=== PATIENT | female | born 1955 | race Caucasian/White ===

== ENCOUNTER → 2017-10-25 08:00 | Outpatient (CLI) | payer OTHER, SELFPAY ==
[2017-10-25 12:40] LABS: Free T3 1.8 pg/mL (2.18-3.98); T4 Free Direct 1.36 ng/dL (0.76-1.46)
== END ==
PROVIDERS: Family Provider Family Medicine; PCP Family Medicine; Visit Provider Family Medicine
DX: E03.9 Hypothyroidism, unspecified (principal); R53.83 Other fatigue
CPT/HCPCS: 36415; 82533; 84439; 84443; 84481

== ENCOUNTER 2017-10-27 11:51 | Observation (INO) | payer OTHER, SELFPAY ==
[2017-10-27] VITALS (12 sets, daily range): BP systolic 115–149; BP diastolic 75–93; PULSE 82–141; RESP 18–21; TEMP 36.6–37.1; O2SAT 95–100; BMI 24.1; BMI 24.2; BMI 23.7
[2017-10-27] MEDS: 0.9% Normal Saline 1,000 ML 1000 ML IV (12:59)
--- NOTE | 2017-10-27 13:01 | RAD_ITS ---
STUDY: X-RAY CHEST REASON FOR EXAM: Female, 62 years old. 2 day history of persistent cough. TECHNIQUE: PA and lateral views of the chest. COMPARISON: None. FINDINGS: EKG electrodes are seen. Mild degree of increased linear markings at the lung bases. This is suggestive of linear atelectasis and/or scarring. There is no demonstrated pleural abnormality. Normal size heart. Normal mediastinum and cristina. Normal visualized pulmonary arteries. There is atherosclerotic tortuosity of the aortic arch and descending thoracic aorta. There are diffuse degenerative changes of the visualized thoracic spine. There is degenerative osteoarthritis of the bilateral shoulders. There is no demonstrated abnormality of the visualized soft tissue structures of the upper abdomen. RAD/Chest PA and Lateral IMPRESSION: Mild increased markings at the lung bases suggestive of linear atelectasis and/or scarring. Electronically Signed: Jaylan Stovall MD at 13:29 EDT Tel [phone], Service support ,
[2017-10-27 13:16] LABS: Absolute Lymphocyte Count 0.97 X10^3/ul (0.83-4.51); Absolute Neutrophil Count 11.5 X10^3/uL (2.0-7.7); Basophil# 0.05 X10^3/uL; Basophil% 0.4 % (0-1); Eosinophil# 0.12 X10^3/uL; Eosinophils% 0.9 % (0-5); Hematocrit 43.4 % (37-47); Hemoglobin 14.2 g/dl (12.0-15.0); Lymphocyte # 0.97 X10^3/ul (4.0); Lymphocyte % 7.1 % (19-41); Mean Corp Hgb Conc 32.7 g/gl (32-36); Mean Corpuscular Hgb 30.3 pg (27.0-32.0); Mean Corpuscular Volume 92.7 fL (81-99); Mean Platelet Vol. 8.8 fl (6.2-12.0); Monocyte# 0.99 X10^3/uL; Monocyte% 7.2 % (0-10); Neutrophil # 11.53 X10^3/uL (2.7-7.7); Neutrophil % 84.1 % (47-70); POSITIVE COUNT NO; POSITIVE DIFFERENTIAL NO; POSITIVE MORPHOLOGY NO; Platelet Count 443 K/mm3 (150-450); RBC Distribution Width CV 13.3 % (11.6-14.6); RBC Distribution Width SD 44.8 fl (35.1-43.9); Red Blood Count 4.68 M/mm3 (4.2-5.4); White Blood Count 13.7 K/mm3 (4.4-11.0)
[2017-10-27 13:30] LABS: ALB/GLOB Ratio 0.6 RATIO (0.9-2.4); AST(SGOT) 21 U/L (15-37); Alanine Aminotransfer ALT/SGPT 50 U/L (13-56); Albumin, Serum 2.9 g/dL (3.2-5.0); Alkaline Phosphatase 94 U/L (45-117); Anion Gap 6 (5-15); BUN 10 mg/dL (7-18); BUN/Creat Ratio 13.8 RATIO (10-20); Calcium,Total 8.9 mg/dL (8.5-10.1); Chloride 104 mmol/L (98-107); Creatinine, Serum 0.72 mg/dL (0.55-1.02); EST Glomerular Filtration Rate 87 mL/min (>60); Est Glom Filt Rate - Afr Amer 105 mL/min (>60); Globulin 4.9 g/dL (2.2-4.2); Glucose 98 mg/dL (74-106); Potassium 3.4 mmol/L (3.5-5.1); Protein, Total 7.8 g/dL (6.4-8.2); Sodium Level 141 mmol/L (136-145)
[2017-10-27 13:44] LABS: BNP,B-Type NATRIURETIC PEPTIDE 330.1 pg/mL (0-100)
--- NOTE | 2017-10-27 13:55 | EKG12_ITS ---
Test Reason : GENERAL ILLNESS Blood Pressure : / mmHG Vent. Rate : 082 BPM Atrial Rate : 082 BPM P-R Int : 132 ms QRS Dur : 078 ms QT Int : 406 ms P-R-T Axes : 058 -25 046 degrees QTc Int : 474 ms Normal sinus rhythm Normal ECG Confirmed by ANA LAURA HUBER MD ([id number]), editorial director GRECIA BARRAZA ([id number] on 10/29/2017 2:13:29 PM Referred By: DAYANA Confirmed By:ANA LAURA HUBER MD
--- NOTE | 2017-10-27 13:59 | ED.DCSUM_ITS ---
- ER Visit Summary Date of Service: 10/27/17 Chief Complaint: Body aches and difficulty hearing History of Present Illness: The patient is a 62 F with history of GERD and osteoarthritis who presents for multiple complaints, with main one being difficulty hearing and body aches. Patient has had symptoms developing over the last 3 months. She has been seen by her family doctor and had a thyroid and adrenal workup. Today she is having worsening jaw pain, shortness of breath with exertion, her skin is sore , her body hurts. Symptoms started with a sore throat and sinus congestion that developed into a cough. Patient is currently on amoxicillin for 5 days. Physical Examination: Vital signs: afebrile, hemodynamically stable, tachycardic at 118, no hypoxia on room air General: well nourished, well developed, in no distress Skin: warm, dry, no rash, no pallor HEENT: normocephalic and atraumatic; PERRL, EOMI, moist mucous membranes Cardiovascular: regular rate and rhythm without murmurs, no peripheral edema, 2 + pulses all distal extremities Respiratory: No increased work of breathing, lungs are clear to auscultation bilaterally, no rales, rhonchi or wheezing Abdominal: Abdomen is soft, nontender with normoactive bowel sounds, no guarding or rebound, no masses MSK: Moves all extremities, no deformities, normal strength Neuro: Awake and alert, oriented ?4. No facial droop, sensation and motor function intact and symmetric Test Results: Abnormal Lab Results 10/27/17 10/27/17 10/27/17 13:00 13:00 13:00 WBC 13.7 H RBC 4.68 Hgb 14.2 Hct 43.4 MCV 92.7 MCH 30.3 MCHC 32.7 RDW 13.3 RDW Differential 44.8 H Plt Count 443 MPV 8.8 Immature Gran % (Auto) 0.300 Neut % (Auto) 84.1 H Lymph % (Auto) 7.1 L [place] % (Auto) 7.2 Eos % (Auto) 0.9 Baso % (Auto) 0.4 Absolute Neuts (auto) 11.5 H Absolute Lymphs (auto) 0.97 Total Counted Not Reportable Sodium 141 Potassium 3.4 L Chloride 104 Carbon Dioxide 31.0 Anion Gap 6 BUN 10 Creatinine 0.72 Estim Creat Clear Calc 72.90 Est GFR (MDRD) Af Amer 105 Est GFR (MDRD) Non-Af 87 BUN/Creatinine Ratio 13.8 Glucose 98 Calcium 8.9 Total Bilirubin 0.40 AST 21 ALT 50 Alkaline Phosphatase 94 Troponin I 0.105 H B-Natriuretic Peptide 330.1 H Total Protein 7.8 Albumin 2.9 L Globulin 4.9 H Albumin/Globulin Ratio 0.6 L Clinical Impression(s) from Imaging Studies Chest X-Ray 10/27/17 13:01 IMPRESSION: Mild increased markings at the lung bases suggestive of linear atelectasis and/or scarring. Electronically Signed: Jaylan Stovall MD at 13:29 EDT Tel [phone], Service support , Emergency Department Course and Treatment: Patient presents with multiple complaints that have developed over the last few months. However her current complaint of shortness of breath with dyspnea on exertion is concerning. Patient is mildly tachycardic, but does state she is on Sudafed currently. EKG was performed that showed sinus rhythm without ischemic changes or ectopy. Influenza negative. CBC remarkable for leukocytosis of 13.7. BMP unremarkable. Normal hepatic function. Troponin elevated at 0.1. BNP elevated at 330 but no rales or rhonchi noted on lung exam, and chest x-ray showed no interstitial edema. Because patient is having dyspnea on exertion and an elevated troponin, this is concerning for possible etiology. Lasix was not given in the emergency department given no overt signs of volume overload. Patient was discussed with Dr. Carter for admission as observation status for further workup of her elevated troponin and dyspnea on exertion. Treatment Plan: [] Disposition: [] Impression: Elevated Troponin, dyspnea on exertion This note was generated with MEDArch[employer] software. It may contain incorrect words, spelling, and punctuation that were not noted in review of the chart prior to signing ED Disposition - Plan for ED Patient: Disposition: Acute Care Hospital [facility] Chief Complaint: General Illness
--- NOTE | 2017-10-27 17:01 | CT_ITS ---
STUDY: CT MAXILLOFACIAL SINUSES REASON FOR EXAM: Female, 62 years old. Frontal headache RADIATION DOSAGE (If Supplied By Facility): CTDIvol = ( 18.53 ) mGy, DLP = ( 873.38 ) mGycm TECHNIQUE: The patient was scanned in a multi detector CT scanner. High resolution axial imaging was performed without the administration of intravenous contrast material. Sagittal and coronal images were reconstructed. Individualized dose optimization techniques were used for this CT. COMPARISON: None. FINDINGS: FRONTAL SINUSES: Normal aeration, without mucosal inflammatory disease. ETHMOIDAL SINUSES: Normal aeration, without mucosal inflammatory disease. MAXILLARY SINUSES: Normal aeration, without mucosal inflammatory disease. SPHENOIDAL SINUSES: Normal aeration, without mucosal inflammatory disease. There is patency of the bilateral maxillary infundibuli with normal uncinate processes, ethmoid bullae, and hiatus semilunaris. Normal bilateral middle turbinates. Normal bilateral inferior turbinates. Normal midline nasal septum. There is patency of the bilateral nasal airways. The visualized osseous structures are normal. The visualized bilateral orbital contents are normal. There is a small right mastoid effusion. The left mastoid air cells are clear. CT/Sinus/Facial Bone IMPRESSION: Clear sinuses. Small right mastoid effusion. Electronically Signed: Florin Leiva, at 18:31 EDT Tel , Service support ,
--- NOTE | 2017-10-27 17:01 | CT_ITS ---
STUDY: CT CHEST WITHOUT CONTRAST REASON FOR EXAM: Female, 62 years old. Cough RADIATION DOSAGE (If Supplied By Facility): CTDIvol = ( 18.53 ) mGy, DLP = ( 873.38 ) mGycm TECHNIQUE: Transaxial imaging was performed without the administration of intravenous contrast material. Coronal and sagittal reformatted images were created. Individualized dose optimization techniques were used for this CT. COMPARISON: 04/12/2017 FINDINGS: Again noted is atelectasis at the lung bases. There are no pulmonary infiltrates or pleural effusions. There are no pulmonary nodules or masses. There is no pneumothorax. The heart and pericardium are within normal limits. 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 There is no thoracic lymphadenopathy. There is no evidence of thoracic aortic aneurysm. Images through the upper abdomen demonstrate no significant abnormality. There are no destructive osseous lesions. There are stable bilateral soft tissue nodules in the breasts. CT/Chest without Contrast IMPRESSION: Bibasilar atelectasis. Otherwise, clear lungs. Redemonstration of soft tissue nodules in both breasts. Comparison with the patient's most recent mammogram is recommended. Electronically Signed: Florin Leiva, at 18:59 EDT Tel , Service support ,
--- NOTE | 2017-10-27 18:05 | PCM.CONS.C ---
Reason for Consult Date of Consultation: 10/27/17 Reason for Consultation: Abnormal cardiac enzymes and shortness of breath. History of Present Illness: The patient is a 62 year old F with previous cardiac history of minimal coronary artery disease who presented to the emergency room today with multiple complaints mainly related to her neck face jaw and sinuses. She says that she has been having these problems of aches in her jaws as well as in her ears for many months. She has been to her primary physician on multiple occasions but it does not appear that he was getting to the bottom of what was going on. She therefore decided to present to the emergency room for evaluation. She has had some shortness of breath with exertion but no chest pain or chest tightness no neck arm discomfort suggest angina. In the emergency room she was evaluated and was noted to have a mildly elevated natriuretic peptide level and was admitted to the hospitalist service and were consulted for further evaluation and management. She was said to be tachycardic in the emergency room but has no EKG evidence of the above. She apparently has a remote history of cardiac catheterization with no significant stenosis and medical therapy was recommended. [] Past Medical History Allergies/Adverse Reactions: Allergies etodolac Allergy (Verified 10/27/17 11:56) Unknown hydroxychloroquine [From Plaquenil] Allergy (Verified 10/27/17 15:43) Rash Sulfa (Sulfonamide Antibiotics) Allergy (Verified 10/27/17 11:56) Hives tramadol Allergy (Verified 10/27/17 11:56) Unknown lisinopril Adverse Reaction (Verified 10/27/17 15:43) dizziness metoprolol Adverse Reaction (Verified 10/27/17 11:56) Other Proton Pump Inhibitors Adverse Reaction (Verified 10/27/17 11:56) Other Yjflvrd-Anz-Pox Reductase Inhibitor Adverse Reaction (Verified 10/27/17 15:43) dizziness verapamil Adverse Reaction (Verified 10/27/17 11:56) Other Home Medications: Ambulatory Orders Medication Instructions Recorded Amlodipine [Norvasc] 2.5 mg PO QHS 10/27/17 Amoxicillin/Potassium Clav 1 tab PO BID 10/27/17 [Amox-Clav 875-125 mg Tablet] Ascorbic Acid [Vitamin C] 500 mg PO DAILY@0800 10/27/17 Aspirin 81 mg PO QHS 10/27/17 Cholecalciferol (Vitamin D3) 2,000 unit PO DAILY 10/27/17 [Vitamin D3] Dexlansoprazole [Dexilant] 60 mg PO DAILY 10/27/17 Levothyroxine Sodium [Synthroid] 62.5 tab PO DAILY 10/27/17 Loratadine [Claritin] 10 mg PO DAILY 10/27/17 [place]-3 Fatty Acids/Fish Oil 1,200 mg PO DAILY 10/27/17 [[place] 3 1,000 mg Softgel] Pseudoephedrine [Sudafed] 60 mg PO Q6H PRN PRN 10/27/17 Surgical History: no surgical history Smoking Status: Never smoker Alcohol: None Drugs: None Review of Systems - Review of Systems General: Denies: Fever, Night Sweats, Fatigue HEENT: Reports: Ear Pain, Sinus Drainage, Sinus Congestion Cardiovascular: Reports: Shortness of Breath with Exertion. Denies: Chest Discomfort, Shortness of Breath, Orthopnea, PND, Peripheral Edema, Palpitations, Lightheadedness, Dizziness, Near Syncope, Syncope Respiratory: Denies: Cough, Sputum Production, Hemoptysis Gastrointestinal: Denies: Hematemesis, Hematochezia, Melena Genitourinary: Denies: Dysuria, Hematuria Skin: Denies: Rash Subjectve: Pleasant lady in no apparent distress Objective: Vital Signs Temp Pulse Resp BP Pulse Ox 98.7 F 87 21 H 133/80 H 96 10/27/17 11:51 10/27/17 16:00 10/27/17 16:00 10/27/17 16:00 10/27/17 16:00 General: Awake, Alert, Oriented x 3 HEENT: PERRL, EOMI, Sclera Non Icteric Neck: Supple, Good ROM, No Lymph Node Enlargement Lungs: Clear to auscultation Cardiovascular: Regular Rhythm, Normal S1, Normal S2, No Murmurs, No Rubs, No Gallops Vascular: No Carotid Bruits, Normal Femoral Pulses, Normal Radial Pulses, Normal Dorsalis Pedal Pulse, Normal Posterior Tibial Pulses Abdomen: Bowel Sounds Present, Soft, Non Tender, No HSM, No Organomegaly Extremities: No Cyanosis, No Clubbing, No edema Neurological: No Focal Motor or Sensory Deficit Rhythm: EKG: Normal sinus rhythm with no acute changes Assessment/Plan 1. Mild shortness of breath. The etiology of the above is not entirely clear to me at this time it appears that diastolic dysfunction may be the culprit here and her presentation. The exact etiology of that her valve is not clear to me. She will need an echocardiogram to assess her left ventricular function and depending on the results further recommendations will be made. Her blood pressure does not appear to be particularly elevated and may not necessarily be contributing to the above. It also does not appear that this is an ischemic equivalent. 2. Abnormal cardiac enzymes Patient appears to have minimally abnormal cardiac enzymes. We will continue enzymes series before making a determination as to further workup. Thank you for allowing me to participate in the care of your patient. Please don't hesitate to call if any issues arise
[2017-10-27] MEDS: Acetaminophen 325 MG Tablet 650 MG PO (18:17)
[2017-10-27] MEDS: Ibuprofen 400 MG Tablet PO (18:17)
[2017-10-27] MEDS: Furosemide 40 MG/4 ML Vial IV (18:41)
--- NOTE | 2017-10-27 19:15 | PCM.HP.STD ---
Problem List (1) Abnormal troponin Status: Acute (2) Cardiac arrhythmia Status: Acute Qualifiers: Arrhythmia type: supraventricular tachycardia Qualified Code(s): I47.1 - Supraventricular tachycardia History of Present Illness Date of Admission: 10/27/17 Chief Complaint: Abnormal troponin, cardiac arrhythmias (transient supraventricular tachycardia) The patient is a 62 year old F was seen in the emergency room at [facility] with a chief complaint of generalized body aches and complaints of dyspnea on exertion. Patient states her body aches started today, she states she has been short of breath on exertion for the past several days. Patient was recently seen by ENT and a CT of her sinuses was ordered due to her complaints of fullness over her face and decreased hearing. She states the decreased hearing is more apparent in her right ear, she is also complained of jaw pain. Although she did not admit this to the emergency room physician today, patient stated that she had a 10-15 minute episode of dull achy precordial chest pain while in the emergency room which resolved on its own. There was no radiation of this chest discomfort anywhere. Patient's pulse ox on room air was 97%, on ambulation, her pulse ox was 95. Patient's chest x-ray showed bilateral lower lung infiltrates suggestive of either scarring or atelectasis. Patient's labs were abnormal for troponin of 0.105, potassium was 3.4, white blood cell count was 13.7. EKG showed normal sinus rhythm without evidence of ischemic changes. On examination, patient's heart rate and rhythm was regular without murmurs, auscultation the lungs reveals fine inspiratory rales at the bases bilaterally, no lower extremity edema was noted, patient was alert and oriented ?3 and appropriate. Patient's abdomen was soft and nontender. On interviewing the patient, he stated that she has had a cardiac catheterization performed in 2007 due to complaints of chest pain, she was told at the time of this catheterization that she had a blockage in 1 of her arteries but it was too far down to place a stent. The physician had wanted her to take a statin but she refused. During the time of my examination, I looked up at the patient's monitor and she briefly went into a supraventricular tachycardia at 150 for just a few seconds. Patient stated that she felt a fluttering in her chest at that time. Patient will be placed in observation status on PCU, cardiac enzymes will be cycled, she will have an echocardiogram performed, she will be seen in consultation by cardiology. Labs will be rechecked tomorrow. I have decided to order her sinus CT which was ordered as an outpatient and it was to be performed tomorrow anyway. In addition, due to her abnormal chest x-ray, I decided to do a noncontrasted chest CT. Past Medical History Allergies etodolac Allergy (Verified 10/27/17 11:56) Unknown hydroxychloroquine [From Plaquenil] Allergy (Verified 10/27/17 15:43) Rash Sulfa (Sulfonamide Antibiotics) Allergy (Verified 10/27/17 11:56) Hives tramadol Allergy (Verified 10/27/17 11:56) Unknown lisinopril Adverse Reaction (Verified 10/27/17 15:43) dizziness metoprolol Adverse Reaction (Verified 10/27/17 11:56) Other Proton Pump Inhibitors Adverse Reaction (Verified 10/27/17 11:56) Other Xsnqway-Mau-Kyb Reductase Inhibitor Adverse Reaction (Verified 10/27/17 15:43) dizziness verapamil Adverse Reaction (Verified 10/27/17 11:56) Other Home Medications: Ambulatory Orders Medication Instructions Recorded Amlodipine [Norvasc] 2.5 mg PO QHS 10/27/17 Amoxicillin/Potassium Clav 1 tab PO BID 10/27/17 [Amox-Clav 875-125 mg Tablet] Ascorbic Acid [Vitamin C] 500 mg PO DAILY@0800 10/27/17 Aspirin 81 mg PO QHS 10/27/17 Cholecalciferol (Vitamin D3) 2,000 unit PO DAILY 10/27/17 [Vitamin D3] Dexlansoprazole [Dexilant] 60 mg PO DAILY 10/27/17 Levothyroxine Sodium [Synthroid] 62.5 tab PO DAILY 10/27/17 Loratadine [Claritin] 10 mg PO DAILY 10/27/17 [place]-3 Fatty Acids/Fish Oil 1,200 mg PO DAILY 10/27/17 [[place] 3 1,000 mg Softgel] Pseudoephedrine [Sudafed] 60 mg PO Q6H PRN PRN 10/27/17 Surgical History: hysterectomy, tonsillectomy, - - Ligation, right carpal tunnel surgery, thyroglossal duct cyst removal, foot surgery Psychiatric History: No pertinent psych hx 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 Denies: Anorexia, Chills, Fever, Night Sweats, Weakness, Weight Change, Fatigue Eyes: Denies: Blurred vision, Cataracts, Conjunctivae Inflammation, Double vision, Drainage HEENT: Reports: Difficulty Hearing, Head Aches, Hearing Changes, Nasal Congestion, Sinus Drainage. Denies: Difficulty Swallowing, Dysphasia, Ear Pain, Eye Pain, Nasal bleeding, Post Nasal Drip Cardiovascular: Reports: Chest Pain, Palpitations. Denies: Claudication, Chest Pressure, Chest Tightness, Edema, Heaviness, Orthopnea, Paroxysmal Noc. Dyspnea Respiratory: Reports: Cough, Shortness of Breath, Shortness of breath upon exertion, Sputum production - Chronic yellow sputum production times years. Denies: Hemoptysis, Pleuritic Pain, Shortness of breath at rest Gastrointestinal: Denies: Abdominal Pain, Constipation, Diarrhea, Hematemesis, Hematochezia, Nausea, Melena, Vomiting Genitourinary: Denies: Dysuria, Frequency, Hematuria, Hesitancy, Incontinence, Nocturia, Urgency Gynecological: Denies: Breast symptoms Musculoskeletal: Denies: Arm Pain, Back Pain, Foot Pain, Joint Pain, Joint stiffness, Joint swelling, Joint Tenderness Skin: Denies: Dryness, Jaundice, Pruritis, Rash Neurological: Reports: Headaches. Denies: Blurred vision, Double vision, Change in Speech, Slurred speech, Difficulty swallowing, Focal weakness, Incoordination, Numbness, Tingling Psychiatric: Denies: Anxiety, Depression, Homicidal Ideations, Suicidal Ideations Endocrine: Denies: Change in Body Habitus, Heat/ Cold Intolerance, Polydipsia, Polyuria Hematologic/ Lymphatic: Denies: Adenopathy, Anemia, Easy Bruising, Easy Bleeding, Petechiae, Purpura VTE Information - Inpt Only VTE Present on Admission: No VTE Mechan Device Prophylaxis: None VTE Pharm Prophylaxis ordered?: Yes Patient Problems: Active and Suspected Problems Abnormal troponin (Acute) Cardiac arrhythmia (Acute) - Physical Exam General: Alert, Oriented x3, Cooperative, No apparent distress, Well developed, Well nourished HEENT: Atraumatic, PERRLA, EOMI, Normocephalic Oral: Moist Mucosa Neck: Supple, No JVD, Negative Carotid Bruits, No Nuchal Rigidity, Trachea Midline, Thyroid Normal Size and Texture Lungs: Clear to auscultation, Normal air movement, No rhonchi, No wheeze, Rales - Inspiratory rales at the bases bilaterally Cardiovascular: Regular rate, Regular Rhythm, Normal S1, Normal S2, No murmurs, No Ectopic Activity, PMI Normal, No rub noted, No Gallop Abdomen: Bowel Sounds Present, Soft, Non Tender, Non-Distended, No hernias noted Extremities: No clubbing, No cyanosis, No edema, Capillary Refill Less than 3 Seconds Skin: No rashes, No breakdown Musculoskeletal: No Tenderness to Palpation of Joints or Extremities, No Muscle Wasting Neurological: Cranial nerves II-XII grossly intact, Neuro grossly intact, Muscle tone normal, Sensory exam intact to light touch and pain, Coordination normal Psych/Mental Status: Normal Affect, Appropriate, Alert and oriented to time, place, person, mood and affect Vital Signs Temp Pulse Resp BP Pulse Ox 97.9 F 97 18 149/93 H 98 10/27/17 18:00 10/27/17 18:00 10/27/17 18:00 10/27/17 18:00 10/27/17 18:00 Oxygen Delivery Method Room Air Weight: 64.6 kg Body Mass Index (BMI) 23.7 Laboratory Tests Past 24 Hrs 10/27/17 17:41 Troponin I 0.128 H Assessment/Plan Active and Suspected Problems Abnormal troponin (Acute) Cardiac arrhythmia (Acute) #1 chest pain with abnormal troponin elevation-etiology unclear at this point, patient will be placed into observation status on PCU, cardiac enzymes will be cycled, she will have an echocardiogram performed, she will be seen in consultation by cardiology, it is unknown whether the patient would require a cardiac catheterization or possibly a stress test if her enzymes do not elevate further. I will leave this up to cardiology to decide #2 past history of coronary artery disease-by the patient's history, this disease appears to be mild #3 cardiac arrhythmia (SVT)-briefly visualized by this examiner while in the patient's room, patient will be monitored on telemetry, echocardiogram will be performed #4 abnormal chest x-ray suggesting either pulmonary scarring or atelectasis-patient will have a CT of her chest without contrast #5 possible sinusitis-again patient had seen Dr. Swann as an outpatient a couple of days ago and is scheduled to have a CT of her sinuses tomorrow, I will have her undergo this while she is in the hospital #6 dyspnea on exertion-etiology unclear #7 [id number] will be rechecked tomorrow Code Visit OBSV E&M: [id number] Initial observation care L3
--- NOTE | 2017-10-27 19:28 | HP.PCM_ITS ---
Problem List (1) Abnormal troponin Status: Acute (2) Cardiac arrhythmia Status: Acute Qualifiers: Arrhythmia type: supraventricular tachycardia Qualified Code(s): I47.1 - Supraventricular tachycardia History of Present Illness Date of Admission: 10/27/17 Chief Complaint: Abnormal troponin, cardiac arrhythmias (transient supraventricular tachycardia) The patient is a 62 year old F was seen in the emergency room at [facility] with a chief complaint of generalized body aches and complaints of dyspnea on exertion. Patient states her body aches started today , she states she has been short of breath on exertion for the past several days. Patient was recently seen by ENT and a CT of her sinuses was ordered due to her complaints of fullness over her face and decreased hearing. She states the decreased hearing is more apparent in her right ear, she is also complained of jaw pain. Although she did not admit this to the emergency room physician today, patient stated that she had a 10-15 minute episode of dull achy precordial chest pain while in the emergency room which resolved on its own. There was no radiation of this chest discomfort anywhere. Patient's pulse ox on room air was 97%, on ambulation, her pulse ox was 95. Patient's chest x-ray showed bilateral lower lung infiltrates suggestive of either scarring or atelectasis. Patient's labs were abnormal for troponin of 0.105, potassium was 3.4, white blood cell count was 13.7. EKG showed normal sinus rhythm without evidence of ischemic changes. On examination, patient's heart rate and rhythm was regular without murmurs, auscultation the lungs reveals fine inspiratory rales at the bases bilaterally, no lower extremity edema was noted, patient was alert and oriented ?3 and appropriate. Patient's abdomen was soft and nontender. On interviewing the patient, he stated that she has had a cardiac catheterization performed in 2007 due to complaints of chest pain, she was told at the time of this catheterization that she had a blockage in 1 of her arteries but it was too far down to place a stent. The physician had wanted her to take a statin but she refused. During the time of my examination, I looked up at the patient's monitor and she briefly went into a supraventricular tachycardia at 150 for just a few seconds. Patient stated that she felt a fluttering in her chest at that time. Patient will be placed in observation status on PCU, cardiac enzymes will be cycled, she will have an echocardiogram performed, she will be seen in consultation by cardiology. Labs will be rechecked tomorrow. I have decided to order her sinus CT which was ordered as an outpatient and it was to be performed tomorrow anyway. In addition, due to her abnormal chest x-ray, I decided to do a noncontrasted chest CT. Past Medical History Allergies etodolac Allergy (Verified 10/27/17 11:56) Unknown hydroxychloroquine [From Plaquenil] Allergy (Verified 10/27/17 15:43) Rash Sulfa (Sulfonamide Antibiotics) Allergy (Verified 10/27/17 11:56) Hives tramadol Allergy (Verified 10/27/17 11:56) Unknown lisinopril Adverse Reaction (Verified 10/27/17 15:43) dizziness metoprolol Adverse Reaction (Verified 10/27/17 11:56) Other Proton Pump Inhibitors Adverse Reaction (Verified 10/27/17 11:56) Other Qiotjle-Bum-Izi Reductase Inhibitor Adverse Reaction (Verified 10/27/17 15:43) dizziness verapamil Adverse Reaction (Verified 10/27/17 11:56) Other Home Medications: Ambulatory Orders Medication Instructions Recorded Amlodipine [Norvasc] 2.5 mg PO QHS 10/27/17 Amoxicillin/Potassium Clav 1 tab PO BID 10/27/17 [Amox-Clav 875-125 mg Tablet] Ascorbic Acid [Vitamin C] 500 mg PO DAILY@0800 10/27/17 Aspirin 81 mg PO QHS 10/27/17 Cholecalciferol (Vitamin D3) 2,000 unit PO DAILY 10/27/17 [Vitamin D3] Dexlansoprazole [Dexilant] 60 mg PO DAILY 10/27/17 Levothyroxine Sodium [Synthroid] 62.5 tab PO DAILY 10/27/17 Loratadine [Claritin] 10 mg PO DAILY 10/27/17 [place]-3 Fatty Acids/Fish Oil 1,200 mg PO DAILY 10/27/17 [[place] 3 1,000 mg Softgel] Pseudoephedrine [Sudafed] 60 mg PO Q6H PRN PRN 10/27/17 Surgical History: hysterectomy, tonsillectomy, - - Ligation, right carpal tunnel surgery, thyroglossal duct cyst removal, foot surgery Psychiatric History: No pertinent psych hx MEDICAL IMAGING TECH History: No pertinent MEDICAL IMAGING TECH history Lives: Spouse/ Significant Other Smoking Status: Never smoker Alcohol: None Drugs: None - *Family History Maternal History Items: Heart Disease - at 41 Paternal History Items: Cancer - Lung cancer, prostate cancer Review of Systems Constitutional: Reports: Malaise. Denies: Anorexia, Chills, Fever, Night Sweats , Weakness, Weight Change, Fatigue Eyes: Denies: Blurred vision, Cataracts, Conjunctivae Inflammation, Double vision, Drainage HEENT: Reports: Difficulty Hearing, Head Aches, Hearing Changes, Nasal Congestion, Sinus Drainage. Denies: Difficulty Swallowing, Dysphasia, Ear Pain , Eye Pain, Nasal bleeding, Post Nasal Drip Cardiovascular: Reports: Chest Pain, Palpitations. Denies: Claudication, Chest Pressure, Chest Tightness, Edema, Heaviness, Orthopnea, Paroxysmal Noc. Dyspnea Respiratory: Reports: Cough, Shortness of Breath, Shortness of breath upon exertion, Sputum production - Chronic yellow sputum production times years. Denies: Hemoptysis, Pleuritic Pain, Shortness of breath at rest Gastrointestinal: Denies: Abdominal Pain, Constipation, Diarrhea, Hematemesis, Hematochezia, Nausea, Melena, Vomiting Genitourinary: Denies: Dysuria, Frequency, Hematuria, Hesitancy, Incontinence, Nocturia, Urgency Gynecological: Denies: Breast symptoms Musculoskeletal: Denies: Arm Pain, Back Pain, Foot Pain, Joint Pain, Joint stiffness, Joint swelling, Joint Tenderness Skin: Denies: Dryness, Jaundice, Pruritis, Rash Neurological: Reports: Headaches. Denies: Blurred vision, Double vision, Change in Speech, Slurred speech, Difficulty swallowing, Focal weakness, Incoordination, Numbness, Tingling Psychiatric: Denies: Anxiety, Depression, Homicidal Ideations, Suicidal Ideations Endocrine: Denies: Change in Body Habitus, Heat/ Cold Intolerance, Polydipsia, Polyuria Hematologic/ Lymphatic: Denies: Adenopathy, Anemia, Easy Bruising, Easy Bleeding , Petechiae, Purpura VTE Information - Inpt Only VTE Present on Admission: No VTE Mechan Device Prophylaxis: None VTE Pharm Prophylaxis ordered?: Yes Patient Problems: Active and Suspected Problems Abnormal troponin (Acute) Cardiac arrhythmia (Acute) - Physical Exam General: Alert, Oriented x3, Cooperative, No apparent distress, Well developed, Well nourished HEENT: Atraumatic, PERRLA, EOMI, Normocephalic Oral: Moist Mucosa Neck: Supple, No JVD, Negative Carotid Bruits, No Nuchal Rigidity, Trachea Midline, Thyroid Normal Size and Texture Lungs: Clear to auscultation, Normal air movement, No rhonchi, No wheeze, Rales - Inspiratory rales at the bases bilaterally Cardiovascular: Regular rate, Regular Rhythm, Normal S1, Normal S2, No murmurs, No Ectopic Activity, PMI Normal, No rub noted, No Gallop Abdomen: Bowel Sounds Present, Soft, Non Tender, Non-Distended, No hernias noted Extremities: No clubbing, No cyanosis, No edema, Capillary Refill Less than 3 Seconds Skin: No rashes, No breakdown Musculoskeletal: No Tenderness to Palpation of Joints or Extremities, No Muscle Wasting Neurological: Cranial nerves II-XII grossly intact, Neuro grossly intact, Muscle tone normal, Sensory exam intact to light touch and pain, Coordination normal Psych/Mental Status: Normal Affect, Appropriate, Alert and oriented to time, place, person, mood and affect Vital Signs Temp Pulse Resp BP Pulse Ox 97.9 F 97 18 149/93 H 98 10/27/17 18:00 10/27/17 18:00 10/27/17 18:00 10/27/17 18:00 10/27/17 18:00 Oxygen Delivery Method Room Air Weight: 64.6 kg Body Mass Index (BMI) 23.7 Laboratory Tests Past 24 Hrs 10/27/17 17:41 Troponin I 0.128 H Assessment/Plan Active and Suspected Problems Abnormal troponin (Acute) Cardiac arrhythmia (Acute) #1 chest pain with abnormal troponin elevation-etiology unclear at this point, patient will be placed into observation status on PCU, cardiac enzymes will be cycled, she will have an echocardiogram performed, she will be seen in consultation by cardiology, it is unknown whether the patient would require a cardiac catheterization or possibly a stress test if her enzymes do not elevate further. I will leave this up to cardiology to decide #2 past history of coronary artery disease-by the patient's history, this disease appears to be mild #3 cardiac arrhythmia (SVT)-briefly visualized by this examiner while in the patient's room, patient will be monitored on telemetry, echocardiogram will be performed #4 abnormal chest x-ray suggesting either pulmonary scarring or atelectasis- patient will have a CT of her chest without contrast #5 possible sinusitis-again patient had seen Dr. Swann as an outpatient a couple of days ago and is scheduled to have a CT of her sinuses tomorrow, I will have her undergo this while she is in the hospital #6 dyspnea on exertion-etiology unclear #7 [id number] will be rechecked tomorrow Code Visit OBSV E&M: 32116 Initial observation care L3
[2017-10-27] MEDS: Amox/Clavulanate 875 MG Tablet PO (22:21)
[2017-10-27] MEDS: amLODIPine 2.5 MG Tablet PO (22:21)
[2017-10-27] MEDS: Aspirin 81 MG TAB.CHEW PO (22:21)
[2017-10-28] VITALS (15 sets, daily range): BP systolic 112–130; BP diastolic 68–88; PULSE 78–106; RESP 17–20; TEMP 36.8–37.4; O2SAT 94–100
[2017-10-28] MEDS: Ibuprofen 400 MG Tablet PO ×3 (00:21→18:37)
[2017-10-28] MEDS: Acetaminophen 325 MG Tablet 650 MG PO ×3 (00:22→18:37)
[2017-10-28] MEDS: Levothyroxine 125 MCG Tablet 62.5 MCG PO (06:12)
[2017-10-28] MEDS: DEXLANSOPRAZOLE 60 MG PO (06:37)
[2017-10-28 06:44] LABS: Anion Gap 6 (5-15); BUN 9 mg/dL (7-18); BUN/Creat Ratio 12.7 RATIO (10-20); Calcium,Total 8.3 mg/dL (8.5-10.1); Chloride 104 mmol/L (98-107); Creatinine, Serum 0.71 mg/dL (0.55-1.02); EST Glomerular Filtration Rate 89 mL/min (>60); Est Glom Filt Rate - Afr Amer 107 mL/min (>60); Estimated Creatinine Clearance 73.93 ml/min; Glucose 77 mg/dL (74-106); Potassium 3.9 mmol/L (3.5-5.1); Sodium Level 141 mmol/L (136-145)
--- NOTE | 2017-10-28 07:02 | PCM.PN.CARD ---
Subjectve: Patient seen and evaluated. She said she had some chest heaviness in the night which went down her arm. She however did not tell any nurse about this. Objective: Vital Signs Temp Pulse Resp BP Pulse Ox 98.5 F 86 18 112/70 94 10/28/17 03:46 10/28/17 03:46 10/28/17 03:46 10/28/17 03:46 10/28/17 03:46 Oxygen Delivery Method Room Air Weight: 142 lb 6.698 oz Body Mass Index (BMI) 23.7 Intake and Output for Last 24 Hours 10/26/17 10/27/17 10/28/17 23:59 23:59 23:59 Intake Total 240 / 240 240 / 240 Balance 240 / 240 240 / 240 General: Awake, Alert, Oriented x 3 HEENT: PERRL, EOMI, Sclera Non Icteric Neck: Supple, Good ROM, No Lymph Node Enlargement Lungs: Clear to auscultation Cardiovascular: Regular Rhythm, Normal S1, Normal S2, No Murmurs, No Rubs, No Gallops Vascular: No Carotid Bruits, Normal Femoral Pulses, Normal Radial Pulses, Normal Dorsalis Pedal Pulse, Normal Posterior Tibial Pulses Abdomen: Bowel Sounds Present, Soft, Non Tender, No HSM, No Organomegaly Extremities: No Cyanosis, No Clubbing, No edema Neurological: No Focal Motor or Sensory Deficit 10/27/17 17:41: Troponin I 0.128 H 10/27/17 20:21: Troponin I 0.134 H 10/28/17 05:45: Sodium 141, Potassium 3.9, Chloride 104, Carbon Dioxide 31.0, Anion Gap 6, BUN 9, Creatinine 0.71, Est GFR (MDRD) Af Amer 107, Est GFR (MDRD) Non-Af 89, BUN/Creatinine Ratio 12.7, Glucose 77, Calcium 8.3 L Rhythm: EKG: ECHO: Stress Test: Cardiac Cath: PCI: CT Surgery: Holter monitor: EPS: PPM: CXR: Chest CT Scan: Medical Necessity - Tobacco Use Smoking Status: Never smoker Assessment/Plan 1. Mild shortness of breath. The etiology of the above is not entirely clear to me at this time it appears that diastolic dysfunction may be the culprit here and her presentation. The exact etiology of that her valve is not clear to me. She will need an echocardiogram to assess her left ventricular function and depending on the results further recommendations will be made. Her blood pressure does not appear to be particularly elevated and may not necessarily be contributing to the above. It also does not appear that this is an ischemic equivalent. 2. Abnormal cardiac enzymes Patient appears to have minimally abnormal cardiac enzymes. With her further chest discomfort this morning going down her arm and previous history of mild coronary artery disease I suspect it may be prudent to just evaluate the above with her cardiac catheterization. The risk benefits and alternatives have been explained to her she understands and agrees to proceed. We will perform this this morning. Should be on the aspirin as well as noted with 300 mg of clopidogrel. Thank you for allowing me to participate in the care of your patient. Please don't hesitate to call if any issues arise
--- NOTE | 2017-10-28 07:58 | PCM.PN.BLA ---
Progress Note Cardiac catheterization this morning demonstrated essentially normal coronary arteries. Do not think that the mild troponin elevation is secondary to obstructive coronary disease. Will treat and follow-up as outpatient. Thank you for allowing me to participate in the care of your patient. Please don't hesitate to call if any issues arise
--- NOTE | 2017-10-28 08:08 | CL.D_ITS ---
Patient Name: DEREK ROSENTHAL Study Date: 10/28/2017 Performing: Odin Brooks MD Ht: 65 inches 165 cm : 1955 Wt: 143.5 lbs 65 kg Age: 62 Gender: female BSA: 1.72 PROCEDURE(S) PERFORMED JD85-DFF/COR/LV CLINICAL PROFILE AND INDICATIONS Indications: Suspected CAD Heart Failure: NYHA Class: 1, Newly Diagnosed: Yes, Heart Failure Type: Diastolic Stress/Imaging Stress/Image Study Performed: No CONCLUSIONS Normal coronary arteries Normal LV size, wall motion,and systolic function RECOMMENDATIONS Medical therapy DESCRIPTION OF PROCEDURE The patient arrived to the procedure lab. The risks and benefits of the procedure as well as a full d escription of our services here and current unavailability of surgical backup were fully explained to the patient and/or their significant other prior to the catheterization. The Timeout was completed, verifying the correct patient and procedure. The patient's procedural site was prepped and draped in the usual fashion. Local anesthetic was given subcutaneously to right groin region with Lidocaine 2%. Using a modified Seldinger technique, arterial access was obtained via the right femoral artery, a 5 Fr sheath was inserted. Left Coronary Artery selective angiography was performed in multiple views u sing a 5 Fr. JL4 catheter. Right Coronary Artery selective angiography was then performed in multiple views using a 5 Fr. 3DRC (Sami) catheter. Left Ventriculography was performed in HARRIS projection using a 5 Fr. Pigtail catheter. LV to AO pullback pressures were then recorded.Contrast was injected through the sheath and the Right Iliac and Femoral artery were assessed for possible closure device.T he arterial sheath was pulled and a Mynx closure device was deployed for hemostasis CORONARY ANGIOGRAPHY DOMINANCE: Right Dominant LEFT HEART ASSESSMENT Left Ventricular Ejection Fraction: by LV Gram 60 % Normal Left Ventricular systolic function Normal Left Ventricular systolic function LEFT MAIN: Angiographically normal LEFT ANTERIOR DECENDING ARTERY: Angiographically normal CIRCUMFLEX ARTERY: Angiographically normal RIGHT CORONARY ARTERY: Angiographically normal COMPLICATIONS No Complications PROCEDURE MEDICATIONS Versed 1 mg IV Versed 1 mg IV Oxygen: 2 L/min via nasal cannula Baby Aspirin (81mg) 1 Tabs PO @ 10/28/2017 07:28:56 Plavix 300 mg PO 10/28/2017 07:28:14 SUMMARY OF HEMODYNAMIC DATA Time AIR REST ECG 07:27:08 AO 121/81 (100) SA 07:37:57 LV 147/-5, 4 07:44:20 LV 121/-9, 9 07:44:27 LV 135/8, 13 07:45:38 LVp 136/7, 13 07:45:43 AOp 137/80 (107) 07:45:48 Signed By Odin Brooks MD On 10/28/2017 08:07:44 Odin Brooks MD
[2017-10-28] MEDS: Amox/Clavulanate 875 MG Tablet PO (09:19)
[2017-10-28] MEDS: Loratadine 10 MG Tablet PO (09:19)
[2017-10-28] MEDS: Ascorbic Acid 500 MG Tablet PO (09:19)
--- NOTE | 2017-10-28 11:37 | NURSING ---
Heart cath recovery completed. Pt ambulated in [place] with this RN and back to room. No bleeding, bruising, or hematoma noted with ambulation. Noelle ODONNELL
--- NOTE | 2017-10-28 20:42 | PCM.DC ---
- Discharge Diagnoses Current Active Problems: Current Active and Chronic Problems Abnormal troponin (Acute) Cardiac arrhythmia (Acute) You will use the following diet at home:: Other - Resume previous diet Your food should be the consistency of: Regular Your liquids should be the consistency of: Regular/Thin Discharge Activity: Return to Normal Activity May resume sexual activity in: No Restrictions Call your doctor if you observe: Fever of 101 or Higher, Shortness of breath, Dizziness, Fainting spells, Uncontrolled pain, - - changes in vision/loss of vision, Instructions: ED Arteritis Temporal, Troponin Additional Instructions: I do not know that you have temporal arteritis but, you have a lot of caomplaints that could be consistent with temproal arteritis. We gail a sed rate, or ESR, prior to your leaving the hospital. you can call me tomorrow and I will relay the results to you. My cell is [phone]. Your coronary arteries were clean. Your heart rate went up to 150 in the ER. This stresses the heart and can cause demand ischemia....this means we made the heart do too much work and it had a very small amount of a chemical produced by the heart called Troponin released into the blood stream. Pseudoephedrine is a decongestant and it can make your heart rate increased significantly. I suggest you no longer take pseudoephedrine. You may continue the antihistamine. I have given you a prescription for a medication called Atrovent nasal spray which treats both allergic and nonallergic rhinitis. The sinus films done at the hospital show no evidenc of sinus disease. Pending Tests on Discharge: ESR Allergies/Adverse Reactions: Allergies etodolac Allergy (Verified 10/27/17 11:56) Unknown hydroxychloroquine [From Plaquenil] Allergy (Verified 10/27/17 15:43) Rash Sulfa (Sulfonamide Antibiotics) Allergy (Verified 10/27/17 11:56) Hives tramadol Allergy (Verified 10/27/17 11:56) Unknown lisinopril Adverse Reaction (Verified 10/27/17 15:43) dizziness metoprolol Adverse Reaction (Verified 10/27/17 11:56) Other Proton Pump Inhibitors Adverse Reaction (Verified 10/27/17 11:56) Other Gkxfwff-Hpb-Ftv Reductase Inhibitor Adverse Reaction (Verified 10/27/17 15:43) dizziness verapamil Adverse Reaction (Verified 10/27/17 11:56) Other Medications to take at Discharge Amlodipine [Norvasc] 2.5 mg PO QHS 10/27/17 Amoxicillin/Potassium Clav [Amox-Clav 875-125 mg Tablet] 1 tab PO BID 10/27/17 Ascorbic Acid [Vitamin C] 500 mg PO DAILY@0800 10/27/17 Aspirin 81 mg PO QHS 10/27/17 Cholecalciferol (Vitamin D3) [Vitamin D3] 2,000 unit PO DAILY 10/27/17 Dexlansoprazole [Dexilant] 60 mg PO DAILY 10/27/17 Levothyroxine Sodium [Synthroid] 62.5 tab PO DAILY 10/27/17 Loratadine [Claritin] 10 mg PO DAILY 10/27/17 [place]-3 Fatty Acids/Fish Oil [[place] 3 1,000 mg Softgel] 1,200 mg PO DAILY 10/27/17 Ipratropium [place] 0.06% [ATROVENT NASAL SPRAY (g)] 2 spray NASAL TID #1 nasal.sry 10/28/17 The following prescriptions were given: Ipratropium [place] 0.06% [ATROVENT NASAL SPRAY (g)] 2 spray NASAL TID #1 nasal.sry Primary Care Physician: Gladys Martinez MD [Primary Care Provider] - Please follow up with your Primary Care Physician in: this coming week Proposed Discharge Date: 10/28/17
--- NOTE | 2017-10-28 20:56 | DCINST_ITS ---
- Discharge Diagnoses Current Active Problems: Current Active and Chronic Problems Abnormal troponin (Acute) Cardiac arrhythmia (Acute) You will use the following diet at home:: Other - Resume previous diet Your food should be the consistency of: Regular Your liquids should be the consistency of: Regular/Thin Discharge Activity: Return to Normal Activity May resume sexual activity in: No Restrictions Call your doctor if you observe: Fever of 101 or Higher, Shortness of breath, Dizziness, Fainting spells, Uncontrolled pain, - - changes in vision/loss of vision, Instructions: ED Arteritis Temporal, Troponin Additional Instructions: I do not know that you have temporal arteritis but, you have a lot of caomplaints that could be consistent with temproal arteritis. We gail a sed rate, or ESR, prior to your leaving the hospital. you can call me tomorrow and I will relay the results to you. My cell is [phone]. Your coronary arteries were clean. Your heart rate went up to 150 in the ER. This stresses the heart and can cause demand ischemia....this means we made the heart do too much work and it had a very small amount of a chemical produced by the heart called Troponin released into the blood stream. Pseudoephedrine is a decongestant and it can make your heart rate increased significantly. I suggest you no longer take pseudoephedrine. You may continue the antihistamine. I have given you a prescription for a medication called Atrovent nasal spray which treats both allergic and nonallergic rhinitis. The sinus films done at the hospital show no evidenc of sinus disease. Pending Tests on Discharge: ESR Allergies/Adverse Reactions: Allergies etodolac Allergy (Verified 10/27/17 11:56) Unknown hydroxychloroquine [From Plaquenil] Allergy (Verified 10/27/17 15:43) Rash Sulfa (Sulfonamide Antibiotics) Allergy (Verified 10/27/17 11:56) Hives tramadol Allergy (Verified 10/27/17 11:56) Unknown lisinopril Adverse Reaction (Verified 10/27/17 15:43) dizziness metoprolol Adverse Reaction (Verified 10/27/17 11:56) Other Proton Pump Inhibitors Adverse Reaction (Verified 10/27/17 11:56) Other Jeeypjp-Eao-Jdt Reductase Inhibitor Adverse Reaction (Verified 10/27/17 15:43) dizziness verapamil Adverse Reaction (Verified 10/27/17 11:56) Other Medications to take at Discharge Amlodipine [Norvasc] 2.5 mg PO QHS 10/27/17 Amoxicillin/Potassium Clav [Amox-Clav 875-125 mg Tablet] 1 tab PO BID 10/27/17 Ascorbic Acid [Vitamin C] 500 mg PO DAILY@0800 10/27/17 Aspirin 81 mg PO QHS 10/27/17 Cholecalciferol (Vitamin D3) [Vitamin D3] 2,000 unit PO DAILY 10/27/17 Dexlansoprazole [Dexilant] 60 mg PO DAILY 10/27/17 Levothyroxine Sodium [Synthroid] 62.5 tab PO DAILY 10/27/17 Loratadine [Claritin] 10 mg PO DAILY 10/27/17 [place]-3 Fatty Acids/Fish Oil [[place] 3 1,000 mg Softgel] 1,200 mg PO DAILY Ipratropium [place] 0.06% [ATROVENT NASAL SPRAY (g)] 2 spray NASAL TID #1 nasal.sry 10/28/17 The following prescriptions were given: Ipratropium [place] 0.06% [ATROVENT NASAL SPRAY (g)] 2 spray NASAL TID #1 nasal.sry Primary Care Physician: Gladys Martinez MD [Primary Care Provider] - Please follow up with your Primary Care Physician in: this coming week Proposed Discharge Date: 10/28/17
--- NOTE | 2017-10-28 20:58 | PCM.DC.SUM ---
Discharge Date and Diagnosis Date of Admission: 10/27/17 Date of Discharge: 10/28/17 - Primary Discharge Diagnosis Active and Suspected Problems Demand ischemia (Acute) Supraventricular tachycardia (Acute) Hypokalemia (Acute) Jaw claudication (Acute) - Secondary Discharge Diagnosis Chronic Problems Rhinosinusitis (Chronic) Hypothyroidism (Chronic) Hypertension (Chronic) Myalgia (Chronic) Family history of temporal arteritis (Chronic) Hospital Course and Treatment Imaging Results: Clinical Impression(s) from Imaging Studies Chest X-Ray 10/27/17 13:01 IMPRESSION: Mild increased markings at the lung bases suggestive of linear atelectasis and/or scarring. Electronically Signed: Jaylan Stovall MD at 13:29 EDT Tel [phone], Service support , Chest CT 10/27/17 17:01 IMPRESSION: Bibasilar atelectasis. Otherwise, clear lungs. Redemonstration of soft tissue nodules in both breasts. Comparison with the patient's most recent mammogram is recommended. Electronically Signed: Florin Leiva, at 18:59 EDT Tel , Service support , Facial/Sinus 10/27/17 17:01 IMPRESSION: Clear sinuses. Small right mastoid effusion. Electronically Signed: Florin Leiva, at 18:31 EDT Tel , Service support , Laboratory Tests 10/27/17 10/27/17 10/27/17 13:00 13:00 13:00 WBC 13.7 H RBC 4.68 Hgb 14.2 Hct 43.4 MCV 92.7 MCH 30.3 MCHC 32.7 RDW 13.3 RDW Differential 44.8 H Plt Count 443 MPV 8.8 Immature Gran % (Auto) 0.300 Neut % (Auto) 84.1 H Lymph % (Auto) 7.1 L [place] % (Auto) 7.2 Eos % (Auto) 0.9 Baso % (Auto) 0.4 Absolute Neuts (auto) 11.5 H Absolute Lymphs (auto) 0.97 Total Counted Not Reportable ESR Sodium 141 Potassium 3.4 L Chloride 104 Carbon Dioxide 31.0 Anion Gap 6 BUN 10 Creatinine 0.72 Estim Creat Clear Calc 72.90 Est GFR (MDRD) Af Amer 105 Est GFR (MDRD) Non-Af 87 BUN/Creatinine Ratio 13.8 Glucose 98 Calcium 8.9 Total Bilirubin 0.40 AST 21 ALT 50 Alkaline Phosphatase 94 Troponin I 0.105 H B-Natriuretic Peptide 330.1 H Total Protein 7.8 Albumin 2.9 L Globulin 4.9 H Albumin/Globulin Ratio 0.6 L 10/27/17 10/27/17 10/28/17 17:41 20:21 05:45 WBC RBC Hgb Hct MCV MCH MCHC RDW RDW Differential Plt Count MPV Immature Gran % (Auto) Neut % (Auto) Lymph % (Auto) Haskell % (Auto) Eos % (Auto) Baso % (Auto) Absolute Neuts (auto) Absolute Lymphs (auto) Total Counted ESR Sodium 141 Potassium 3.9 Chloride 104 Carbon Dioxide 31.0 Anion Gap 6 BUN 9 Creatinine 0.71 Estim Creat Clear Calc 73.93 Est GFR (MDRD) Af Amer 107 Est GFR (MDRD) Non-Af 89 BUN/Creatinine Ratio 12.7 Glucose 77 Calcium 8.3 L Total Bilirubin AST ALT Alkaline Phosphatase Troponin I 0.128 H 0.134 H B-Natriuretic Peptide Total Protein Albumin Globulin Albumin/Globulin Ratio 10/28/17 05:45 WBC RBC Hgb Hct MCV MCH MCHC RDW RDW Differential Plt Count MPV Immature Gran % (Auto) Neut % (Auto) Lymph % (Auto) Haskell % (Auto) Eos % (Auto) Baso % (Auto) Absolute Neuts (auto) Absolute Lymphs (auto) Total Counted ESR 43 H Sodium Potassium Chloride Carbon Dioxide Anion Gap BUN Creatinine Estim Creat Clear Calc Est GFR (MDRD) Af Amer Est GFR (MDRD) Non-Af BUN/Creatinine Ratio Glucose Calcium Total Bilirubin AST ALT Alkaline Phosphatase Troponin I B-Natriuretic Peptide Total Protein Albumin Globulin Albumin/Globulin Ratio Dr. [facility] Operations: None Procedures: Cardiac catheterization Summary of Care Provided: The patient is a 62 year old F who presented to the emergency department at [facility] on 10/27/2017 complaining of generalized body aches, dyspnea on exertion and pain in her jaw. She additionally complained of a 10-15 minute episode of dull achy precordial chest pain that resolved while she was in the emergency department. Vital signs in the emergency department were temp 97.9, pulse 97, respiratory rate 18, BP 149/93 and pulse ox of 97% on room air. Chest x-ray showed bilateral scarring in the bases. Troponin was elevated at 0.105 and the potassium was low at 3.4. White blood cell count was 13.7. Other lab was within normal limits. EKG showed normal sinus rhythm with no ischemic changes. During examination by the hospitalist she briefly went into a supraventricular tachycardia at 150 bpm. She was admitted to PCU and cardiac enzymes were ordered. Consultation with Dr. Brooks was obtained. Troponin peaked at 0.134. She had recurrent chest discomfort through the night and in the a.m. which radiated down her arm. Dr. Brooks recommended cardiac catheterization and the patient was in agreement. The catheterization revealed left ventricular ejection fraction of 60% with normal left ventricular systolic function. The left main was angiographically normal. The left anterior descending, circumflex and right coronary artery were angiographically normal. The mild elevation of Troponin was possibly due to demand ischemia related to supraventricular tachycardia. Dr. Brooks recommended discharge and he will follow as an outpatient. She has multiple complaints including pain in her jaw with chewing, muscle achiness, pain in her forehead, generalized weakness and malaise. Her father has a history of temporal arteritis. He did have some pain with palpation along the temporal arteries. A CT scan of her sinuses revealed clear sinuses but a small right mastoid effusion. And ESR was obtained and was elevated at 43. Temporal arteritis/polymyalgia rheumatica is a consideration for the etiology of her multiple somatic complaints. She was instructed to follow-up with her PCP, Dr. Gladys Martinez, as soon as possible. She may require temporal artery biopsy to evaluate for temporal arteritis. She was discharged home on 10/28/2017 and will resume her previous home medications. Prescription for Atrovent nasal spray for chronic nasal congestion not responding to Flonase. This note was generated with Rockmelt[employer] software. It may contain incorrect words, spelling, and punctuation that were not noted in checking the note before signing. Discharge Activity: Return to Normal Activity May resume sexual activity in: No Restrictions Call your doctor if you observe: Fever of 101 or Higher, Shortness of breath, Dizziness, Fainting spells, Uncontrolled pain, - - changes in vision/loss of vision, Home Medications: Medications to take at Discharge Amlodipine [Norvasc] 2.5 mg PO QHS 10/27/17 Amoxicillin/Potassium Clav [Amox-Clav 875-125 mg Tablet] 1 tab PO BID 10/27/17 Ascorbic Acid [Vitamin C] 500 mg PO DAILY@0800 10/27/17 Aspirin 81 mg PO QHS 10/27/17 Cholecalciferol (Vitamin D3) [Vitamin D3] 2,000 unit PO DAILY 10/27/17 Dexlansoprazole [Dexilant] 60 mg PO DAILY 10/27/17 Levothyroxine Sodium [Synthroid] 62.5 tab PO DAILY 10/27/17 Loratadine [Claritin] 10 mg PO DAILY 10/27/17 [place]-3 Fatty Acids/Fish Oil [[place] 3 1,000 mg Softgel] 1,200 mg PO DAILY 10/27/17 Ipratropium [place] 0.06% [ATROVENT NASAL SPRAY (g)] 2 spray NASAL TID #1 nasal.sry 10/28/17 Following Prescrptions Were Given to Patient: Ipratropium [place] 0.06% [ATROVENT NASAL SPRAY (g)] 2 spray NASAL TID #1 nasal.sry Primary Care Physician: Gladys Martinez MD [Primary Care Provider] - Please follow up with your Primary Care Physician in: this coming week Patient Instructions: Troponin, ED Arteritis Temporal Disposition: Home Minutes spent on discharge:: 35 Patient Condition:: Good Medical Necessity - Tobacco Use Smoking Status: Never smoker Meaningful Use Info Meaningful Use Diagnoses (Choose all that apply): None applicable Code Visit OBSV E&M: 97868 Observation care discharge
[2017-10-28 21:12] LABS: Erythrocyte Sedimentation Rate 43 mm/hr (0-30)
== END 2017-10-28 21:51 | disposition home or self-care (01) ==
LOC: ED 14:45 → PCU 16:22
PROVIDERS: Admitting Provider Internal Medicine; Emergency Provider Emergency Medicine; Family Provider Family Medicine; PCP Family Medicine; Visit Provider Internal Medicine
DX: I24.8 Other forms of acute ischemic heart disease (principal); I47.1 Supraventricular tachycardia; E87.6 Hypokalemia; M79.1 Myalgia; E03.9 Hypothyroidism, unspecified; Z79.899 Other long term (current) drug therapy; R68.84 Jaw pain; K21.9 Gastro-esophageal reflux disease without esophagitis; M19.90 Unspecified osteoarthritis, unspecified site; H91.90 Unspecified hearing loss, unspecified ear; Z79.82 Long term (current) use of aspirin; R06.09 Other forms of dyspnea; I25.10 Atherosclerotic heart disease of native coronary artery without angina pectoris; I11.0 Hypertensive heart disease with heart failure; I50.30 Unspecified diastolic (congestive) heart failure
CPT/HCPCS: 36415; 70486; 71046; 71250; 80048; 80053; 83880; 84484; 85025; 85652; 87804; 93005; 93458; 96361; 96374; 99152; 99153; 99218; 99284; C1760; J7030; J7040; A4216; C1769; G0378; J1940; Q9967

== ENCOUNTER 2017-11-14 05:57 | Inpatient (IN) | payer OTHER, SELFPAY ==
[2017-11-14] VITALS (17 sets, daily range): BP systolic 93–122; BP diastolic 56–91; PULSE 88–186; RESP 16–24; TEMP 36.2–37.3; O2SAT 96–99; BMI 22.9; BMI 22.6
[2017-11-14] MEDS: 0.9% Normal Saline 1,000 ML 1000 ML IV (06:00)
[2017-11-14] MEDS: Adenosine 6 MG/2 ML Syringe IV (06:08)
[2017-11-14] MEDS: dilTIAZem 25 MG/5 ML Vial 20 MG IV BOLUS ×2 (06:09→06:34)
--- NOTE | 2017-11-14 06:16 | RAD_ITS ---
STUDY: X-RAY CHEST REASON FOR EXAM: Female, 62 years old. Chest pain. TECHNIQUE: Single AP portable view of the chest. COMPARISON: 10/27/2017 FINDINGS: There is mild hyperinflation of the lungs possibly with chronic obstructive lung disease (COPD). There is basilar mild interstitial thickening again noted, right side more than the left. There is no demonstrated pleural abnormality. Normal size heart. Normal mediastinum and cristina. Normal visualized pulmonary arteries. There is atherosclerotic tortuosity of the aortic arch and descending thoracic aorta. There is demineralization of the osseous structures. There is no demonstrated abnormality of the visualized soft tissue structures of the upper abdomen. RAD/Chest 1 View (Portable) IMPRESSION: Stable-appearing chest. No acute abnormality noted. Possible COPD. Electronically Signed: Kiet Bender MD at 6:52 EDT Tel , Service support ,
--- NOTE | 2017-11-14 06:16 | EKG12_ITS ---
Test Reason : REPEAT Blood Pressure : / mmHG Vent. Rate : 141 BPM Atrial Rate : 147 BPM P-R Int : 000 ms QRS Dur : 070 ms QT Int : 338 ms P-R-T Axes : 000 -12 060 degrees QTc Int : 517 ms Atrial fibrillation Septal infarct , age undetermined , cannot be excluded Abnormal ECG Confirmed by ARA LEES, TIGIST ([id number]), publication editor GRECIA BARRAZA ([id number]) on 11/17/2017 2:35:53 PM Referred By: SHAKIR Confirmed By:TIGIST BULLOCK MD
--- NOTE | 2017-11-14 06:20 | ED.VISSUMM ---
- ER Visit Summary Date of Service: 11/14/17 Chief Complaint: [] Palpitations History of Present Illness: The patient is a 62 F [] complaining of sudden onset palpitations 1-1/2 hours ago after waking up from sleep coughing. Patient denies previous history of persistent palpitations. Patient placed upon the monitor upon arrival and is in atrial fibrillation with rapid ventricular response. Patient reports she underwent cardiac catheterization 2 weeks ago which was negative and did not require any stenting. She also reports 2 weeks ago she underwent bilateral temporal artery biopsies for a significantly elevated sedimentation rate of unknown origin. Physical Examination: [] Afebrile. Heart rate in the 170s-180s. Respiratory rate 22. Pulse ox 98% on room air. BP 120/91. Cardiovascular exam is irregularly irregular. Lungs are clear to auscultation. Abdomen is soft and nontender. There is no lower extremity edema. Test Results: [] Chest x-ray: EKG: Supraventricular tachycardia with a rate of 178 without obvious ischemic changes. Labs: Emergency Department Course and Treatment: [] Patient immediately evaluated upon her entry to the emergency department. She was given 6 mg of intravenous adenosine without resolution of atrial fibrillation with rapid ventricular response. She was then given 20 mg of IV Cardizem which slowed her rate down into the 120s. This lasted about 5 minutes and the patient then increased her heart rate back to the 160s. Patient was then given a second dose of 20 mg of IV Cardizem. This improved her heart rate into the 140s. We received a panic value on her troponin of 3.76. Her platelets were also significantly elevated at 860. White blood cell count was elevated at 13.7. Electrolytes are normal. TSH was normal. Case was discussed with the on-call maintenance service supervisor, Dr. Toney. Patient will undergo CTA of the chest to rule out PE and we will initiate a Cardizem drip. If CT of the chest is negative we will begin a heparin drip. Patient will be admitted to the hospitalist with a consult to cardiology. Treatment Plan: [] Admit to telemetry. Consult cardiology. Disposition: [] Admit, stable. Impression: [] New onset atrial fibrillation Elevated troponin This note was generated with icanbuy dictation software. It may contain incorrect words, spelling, and punctuation that were not noted in review of the chart prior to signing ED Disposition - Plan for ED Patient: Chief Complaint: Chest Pain Referrals: Gladys Martinez MD [Primary Care Provider] -
--- NOTE | 2017-11-14 06:23 | ED.DCSUM_ITS ---
- ER Visit Summary Date of Service: 11/14/17 Chief Complaint: [] Palpitations History of Present Illness: The patient is a 62 F [] complaining of sudden onset palpitations 1-1/2 hours ago after waking up from sleep coughing. Patient denies previous history of persistent palpitations. Patient placed upon the monitor upon arrival and is in atrial fibrillation with rapid ventricular response. Patient reports she underwent cardiac catheterization 2 weeks ago which was negative and did not require any stenting. She also reports 2 weeks ago she underwent bilateral temporal artery biopsies for a significantly elevated sedimentation rate of unknown origin. Physical Examination: [] Afebrile. Heart rate in the 170s-180s. Respiratory rate 22. Pulse ox 98% on room air. BP 120/91. Cardiovascular exam is irregularly irregular. Lungs are clear to auscultation. Abdomen is soft and nontender. There is no lower extremity edema. Test Results: [] Chest x-ray: EKG: Supraventricular tachycardia with a rate of 178 without obvious ischemic changes. Labs: Emergency Department Course and Treatment: [] Patient immediately evaluated upon her entry to the emergency department. She was given 6 mg of intravenous adenosine without resolution of atrial fibrillation with rapid ventricular response. She was then given 20 mg of IV Cardizem which slowed her rate down into the 120s. This lasted about 5 minutes and the patient then increased her heart rate back to the 160s. Patient was then given a second dose of 20 mg of IV Cardizem. This improved her heart rate into the 140s. We received a panic value on her troponin of 3.76. Her platelets were also significantly elevated at 860. White blood cell count was elevated at 13.7. Electrolytes are normal. TSH was normal. Case was discussed with the on-call skilled nursing facilities professional, Dr. Toney. Patient will undergo CTA of the chest to rule out PE and we will initiate a Cardizem drip. If CT of the chest is negative we will begin a heparin drip. Patient will be admitted to the hospitalist with a consult to cardiology. Treatment Plan: [] Admit to telemetry. Consult cardiology. Disposition: [] Admit, stable. Impression: [] New onset atrial fibrillation Elevated troponin This note was generated with [employer] dictation software. It may contain incorrect words, spelling, and punctuation that were not noted in review of the chart prior to signing ED Disposition - Plan for ED Patient: Chief Complaint: Chest Pain Referrals: Gladys Martinez MD [Primary Care Provider] -
[2017-11-14] MEDS: LORazepam 2 MG/ML Syringe 1 MG IV (06:30)
[2017-11-14 06:52] LABS: Absolute Lymphocyte Count 1.56 X10^3/ul (0.83-4.51); Absolute Neutrophil Count 10.5 X10^3/uL (2.0-7.7); Basophil# 0.04 X10^3/uL; Basophil% 0.3 % (0-1); Eosinophil# 0.45 X10^3/uL; Eosinophils% 3.3 % (0-5); Hematocrit 40.3 % (37-47); Lymphocyte # 1.56 X10^3/ul (4.0); Lymphocyte % 11.4 % (19-41); Mean Corp Hgb Conc 32.3 g/gl (32-36); Mean Corpuscular Hgb 29.1 pg (27.0-32.0); Mean Corpuscular Volume 90.4 fL (81-99); Mean Platelet Vol. 8.7 fl (6.2-12.0); Neutrophil # 10.46 X10^3/uL (2.7-7.7); Neutrophil % 76.3 % (47-70); RBC Distribution Width CV 13.3 % (11.6-14.6); RBC Distribution Width SD 43.9 fl (35.1-43.9); Red Blood Count 4.46 M/mm3 (4.2-5.4); White Blood Count 13.7 K/mm3 (4.4-11.0)
[2017-11-14 06:55] LABS: Differential Indicated SCAN CRITERIA MET; POSITIVE COUNT YES; POSITIVE DIFFERENTIAL NO; POSITIVE MORPHOLOGY NO; Platelet Count 860 K/mm3 (150-450)
--- NOTE | 2017-11-14 06:56 | NURSING ---
DR. SCHILLING MADE AWARE OF PATIENT'S PLATLET COUNT OF 860,000.
[2017-11-14 07:12] LABS: Anion Gap 8 (5-15); BUN 11 mg/dL (7-18); BUN/Creat Ratio 15.3 RATIO (10-20); Calcium,Total 8.8 mg/dL (8.5-10.1); Chloride 101 mmol/L (98-107); Creatinine, Serum 0.72 mg/dL (0.55-1.02); EST Glomerular Filtration Rate 87 mL/min (>60); Est Glom Filt Rate - Afr Amer 106 mL/min (>60); Glucose 106 mg/dL (74-106); Potassium 3.6 mmol/L (3.5-5.1); Sodium Level 137 mmol/L (136-145); Thyroid Stim Hormone (TSH) 2.44 uIU/mL (0.358-3.74)
[2017-11-14] MEDS: Aspirin 325 MG Tablet PO (07:22)
[2017-11-14 07:24] LABS: Platelet Estimate MKD INC (ADEQ)
--- NOTE | 2017-11-14 07:24 | CT_ITS ---
STUDY: CTA CHEST REASON FOR EXAM: Female, 62 years old. Shortness of breath. Chest complication. Tachycardia. History of hypertension. RADIATION DOSAGE (If Supplied By Facility): CTDIvol = ( 10.59 ) mGy, DLP = ( 381.40 ) mGycm TECHNIQUE: The examination was performed with the intravenous administration of 75mL ml of Isovue 370 contrast material. Post-processing of the angiographic images was performed, with multiplanar reformation and 3D reconstruction. Individualized dose optimization techniques were used for this CT. COMPARISON: None. FINDINGS: Normal enhancement of the main pulmonary artery and right and left pulmonary arteries. Normal enhancement of the bilateral peripheral pulmonary arteries. There is no demonstrated pulmonary embolism. There is atherosclerotic tortuosity of the aortic arch and descending thoracic aorta. There is a left aortic arch with aberrant retroesophageal right subclavian artery. There is no demonstrated aortic dissection. Ascending aorta is mildly ectatic. Normal heart and pericardium. There is no pericardial or pleural effusion. Multiple small tiny reactive mediastinal lymph nodes are seen. Small bilateral reactive hilar lymph nodes. Normal visualized trachea and bronchi. The lungs are adequate expanded. Bibasilar infiltrates/atelectasis demonstrated, right side more than the left. There is diffuse mild pulmonary interstitial thickening. A small 3.5 mm noncalcified nodular density is seen peripherally in the right upper lobe, probably benign. Posteriorly there is mild bilateral pleural thickening. There is a 1.5 cm nodule or mass is seen posteriorly in the left breast and a smaller nodular density in the right breast. There are benign bilateral axillary lymph nodes. There are degenerative changes of thoracic spine. There is generalized bony demineralization. Unremarkable visualized upper abdomen. CT/CTA Chest W/WO Contrast IMPRESSION: 1. Normal CTA chest examination, without a demonstrated pulmonary embolism or arterial dissection. 2. 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 3. Bibasilar infiltrates/atelectasis and diffuse mild bilateral pulmonary interstitial thickening demonstrated. 4. A 1.5 cm nodule posteriorly in the left breast and a small nodular density in the right breast seen, further evaluation with a diagnostic mammogram/ultrasound exam is recommended. 5. Osteopenia. Multilevel degenerative thoracolumbar spondylosis. Electronically Signed: Kiet Bender MD at 8:34 EDT Tel , Service support ,
--- NOTE | 2017-11-14 07:28 | ED.RN ---
DR SCHILLING IN THE ROOM SPEAKING WITH THE PT AND
[2017-11-14 07:37] LABS: International Normalized Ratio 1.1; Prothrombin Time (Protime)PT. 14.1 SECONDS (11.7-14.9)
--- NOTE | 2017-11-14 07:50 | PCM.HP.STD ---
Problem List (1) Hypothyroidism Status: Chronic Qualifiers: Hypothyroidism type: unspecified Qualified Code(s): E03.9 - Hypothyroidism, unspecified (2) Hypertension Status: Chronic Qualifiers: Hypertension type: unspecified Qualified Code(s): I10 - Essential (primary) hypertension (3) HLD (hyperlipidemia) Status: Chronic Qualifiers: Hyperlipidemia type: unspecified Qualified Code(s): E78.5 - Hyperlipidemia, unspecified (4) GERD (gastroesophageal reflux disease) Status: Chronic Qualifiers: Esophagitis presence: esophagitis presence not specified Qualified Code(s): K21.9 - Gastro-esophageal reflux disease without esophagitis (5) Allergic rhinitis Status: Chronic Qualifiers: Allergic rhinitis trigger: unspecified Allergic rhinitis seasonality: unspecified seasonality Qualified Code(s): J30.9 - Allergic rhinitis, unspecified (6) Temporal arteritis Status: Suspected (7) NSTEMI (non-ST elevated myocardial infarction) Status: Acute (8) Atrial fibrillation with RVR Status: Acute History of Present Illness Date of Admission: 11/14/17 Chief Complaint: Palpitations The patient is a 62 y/o F w/ PMHx: Allergic Rhinitis, Chronic Cough, GERD, Hypothyroidism, HTN, HLD w/ recent admission 10/27/17-10/28/17 with mildly elevated cardiac enzymes at that time felt secondary to demand ischemia with SVT with atypical chest discomfort with jaw claudication with cardiac catheterization performed per Dr. Brooks which revealed LVEF 60% with normal LV systolic function, left main angiographically normal, left anterior descending, circumflex and right coronary artery also angiographically normal. Given patient's unremarkable cardiac catheterization at that time with family history of temporal arteritis with mild discomfort with palpation along temporal arteries CT scan was obtained with noted clear sinuses but small right mastoid effusion with ESR which was 43 therefore it was felt temporal arteritis/polymyalgia rheumatica as possible etiology given multiple somatic complaints with instruction at that time to follow-up with primary care physician with biopsy set up who presents to the [facility] on 11/14/17 with history of sudden onset increased palpitations at approximately 4: 30 in the morning with no markedly associated chest discomfort/pain or dyspnea following a coughing bout. Patient has had a recent atypical course including ongoing chronic cough for several months with upcoming allergy testing this week, recent bilateral temporal artery biopsies performed secondary to elevated sed rate of unclear etiology with results pending and ongoing autoimmune workup with several month history of decreased appetite, weakness, fatigue. Workup in the ED included T 97.2, initial heart rate 167, BP 122/90, respiratory rate 18, 98% on 2 L nasal cannula, CBC with WBC 13.7, hemoglobin 13, platelet 860 with left shift, normal coags, BMP unremarkable, troponin 3.760 with most recently 10/27/17 prior to most recent admission discharge trop 0.134, recent admission w/ ESR 43, pending pathology from outpatient BL temporal artery biopsy performed ~ week prior, TSH 2.44, Mag 1.8, EKG with atrial fibrillation with RVR although initial concern for supraventricular tachycardia with adenosine administration with rate improvement with serial doses of Cardizem. In the emergency room patient was as noted administered 6 mg IV adenosine followed by 20 mg IV Cardizem repeated 3 times with each time temporary improvement of rate but then recurrent RVR. Dr. Toney, cardiology was consulted per the ED with request for CTPA to be obtained to assure no dissection and to rule out acute pulmonary embolism with continuation of Cardizem drip with initiation of heparin pending assurance that there would was no presence of dissection. Following admission with transition to PCU patient converted to sinus rhythm with rate in the low 90s. Past Medical History Past Medical History (Chronic Problems): Chronic Problems HLD (hyperlipidemia) (Chronic) GERD (gastroesophageal reflux disease) (Chronic) Allergic rhinitis (Chronic) Rhinosinusitis (Chronic) Hypothyroidism (Chronic) Hypertension (Chronic) Myalgia (Chronic) Family history of temporal arteritis (Chronic) Allergies etodolac Allergy (Verified 11/14/17 06:16) Unknown hydroxychloroquine [From Plaquenil] Allergy (Verified 11/14/17 06:16) Rash Sulfa (Sulfonamide Antibiotics) Allergy (Verified 11/14/17 06:16) Hives tramadol Allergy (Verified 11/14/17 06:16) Unknown lisinopril Adverse Reaction (Verified 11/14/17 06:16) dizziness metoprolol Adverse Reaction (Verified 11/14/17 06:16) Other Proton Pump Inhibitors Adverse Reaction (Verified 11/14/17 06:16) Other Tzisjgi-Voh-Xtc Reductase Inhibitor Adverse Reaction (Verified 11/14/17 06:16) dizziness verapamil Adverse Reaction (Verified 11/14/17 06:16) Other Home Medications: Ambulatory Orders Medication Instructions Recorded RX: Amlodipine [Norvasc] 2.5 mg PO QHS 10/27/17 RX: Ascorbic Acid [Vitamin C] 500 mg PO DAILY@0800 10/27/17 RX: Aspirin 81 mg PO QHS 10/27/17 RX: Cholecalciferol (Vitamin D3) 2,000 unit PO DAILY 10/27/17 [Vitamin D3] RX: Dexlansoprazole [Dexilant] 60 mg PO DAILY 10/27/17 RX: Levothyroxine Sodium 62.5 tab PO DAILY 10/27/17 [Synthroid] RX: Martin-3 Fatty Acids/Fish Oil 1,200 mg PO DAILY 10/27/17 [Martin 3 1,000 mg Softgel] Fluticasone 0.05% [Flonase Nasal 1 spray NASAL BID 11/14/17 [place]] Surgical History: hysterectomy, tonsillectomy, - - Ligation, right carpal tunnel surgery, thyroglossal duct cyst removal, foot surgery Psychiatric History: No pertinent psych hx 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 Denies: Chills, Fever, Weight Change HEENT: Reports: Head Aches, Post Nasal Drip. Denies: Sinus Congestion, Sinus Drainage Cardiovascular: Reports: Palpitations. Denies: Chest Pain Respiratory: Denies: Cough, Shortness of breath at rest, Sputum production Gastrointestinal: Denies: Abdominal Pain, Nausea, Vomiting Genitourinary: Denies: Dysuria Musculoskeletal: Denies: Joint Pain, Joint Tenderness Skin: Denies: Rash, Wounds Neurological: Denies: Numbness, Tingling, Focal weakness Psychiatric: Denies: Anxiety, Depression, Homicidal Ideations, Suicidal Ideations Hematologic/ Lymphatic: Denies: Easy Bruising, Easy Bleeding VTE Information - Inpt Only VTE Present on Admission: No VTE Mechan Device Prophylaxis: SCD's VTE Pharm Prophylaxis ordered?: Yes Patient Problems: Active and Suspected Problems Temporal arteritis (Suspected) NSTEMI (non-ST elevated myocardial infarction) (Acute) Atrial fibrillation with RVR (Acute) Subjective: Seated upright in the bed, no acute distress, notes feeling improved since initial presentation. Objective: Physical Examination: General: awake, alert, oriented x 3 and cooperative, seated upright in PCU bed in no apparent distress, notes improved since transition to sinus rhythm. Skin: normal color, turgor, no icterus, cyanosis. HEENT: AT/NC, EOMI, PERRLA, MMM, no carotid bruits or JVD noted. Lungs: CTA bilaterally, moderate effort, mild decrease BL bases, no rales, ronchi or wheezing, does have intermittent coughing during examination. Heart: Currently regular rate and rhythm; no gallop, rub audible. Abdomen: soft, NTTP, ND, normal BS, no HSM. Extremities: no cyanosis, clubbing, or edema. Neurological: patient awake, alert, oriented x 3; cognitive function intact; pupils equally reactive to light and accomodation; cranial nerves II-XII grossly normal, moving all 4 extremities, no focal deficits, strength moderately globally decreased secondary to acute presentation although improving. Psychiatric: affect appears normal, moderately fatigued, no acute evidence of depressive or anxiety feelings. - Physical Exam Vital Signs Temp Pulse Resp BP Pulse Ox 97.2 F L 149 H 21 H 112/80 97 11/14/17 05:58 11/14/17 07:19 11/14/17 07:19 11/14/17 07:19 11/14/17 07:19 Oxygen Flow Rate (L/min) 2 Oxygen Delivery Method Nasal Cannula Weight: 137 lb 12.623 oz Body Mass Index (BMI) 22.9 Laboratory Tests Past 24 Hrs 11/14/17 11/14/17 11/14/17 06:10 06:10 06:10 WBC 13.7 H RBC 4.46 Hgb 13.0 Hct 40.3 MCV 90.4 MCH 29.1 MCHC 32.3 RDW 13.3 RDW Differential 43.9 Plt Count 860 H* MPV 8.7 Immature Gran % (Auto) 0.700 Neut % (Auto) 76.3 H Lymph % (Auto) 11.4 L Gray % (Auto) 8.0 Eos % (Auto) 3.3 Baso % (Auto) 0.3 Absolute Neuts (auto) 10.5 H Absolute Lymphs (auto) 1.56 Total Counted Not Reportable Diff Path Review May foll Platelet Estimate MKD INC PT 14.1 INR 1.1 APTT Sodium 137 Potassium 3.6 Chloride 101 Carbon Dioxide 28.0 Anion Gap 8 BUN 11 Creatinine 0.72 Estim Creat Clear Calc 72.90 Est GFR (MDRD) Af Amer 106 Est GFR (MDRD) Non-Af 87 BUN/Creatinine Ratio 15.3 Glucose 106 Calcium 8.8 Troponin I 3.760 H* TSH 2.44 11/14/17 06:10 WBC RBC Hgb Hct MCV MCH MCHC RDW RDW Differential Plt Count MPV Immature Gran % (Auto) Neut % (Auto) Lymph % (Auto) Gray % (Auto) Eos % (Auto) Baso % (Auto) Absolute Neuts (auto) Absolute Lymphs (auto) Total Counted Diff Path Review Platelet Estimate PT INR APTT 34.0 Sodium Potassium Chloride Carbon Dioxide Anion Gap BUN Creatinine Estim Creat Clear Calc Est GFR (MDRD) Af Amer Est GFR (MDRD) Non-Af BUN/Creatinine Ratio Glucose Calcium Troponin I TSH Assessment/Plan Active and Suspected Problems Temporal arteritis (Suspected) NSTEMI (non-ST elevated myocardial infarction) (Acute) Atrial fibrillation with RVR (Acute) The patient is a 62 y/o F w/ PMHx: Allergic Rhinitis, Chronic Cough, GERD, Hypothyroidism, HTN, HLD w/ recent admission 10/27/17-10/28/17 with mildly elevated cardiac enzymes at that time felt secondary to demand ischemia with SVT with atypical chest discomfort with jaw claudication with recent unremarkable cardiac catheterization, recent concern for possible temporal arteritis w/ ESR w/ pending Bx who now re-presents to the [facility] on 11/14/17 with history of sudden onset increased palpitations at approximately 4:30 in the morning with no markedly associated chest discomfort/pain or dyspnea following a coughing bout. (1) New onset, Paroxsymal atrial fibrillation w/ Prior Hx SVT: EKG in ED w/ atrial fibrillation w/ RVR. Patient administered serial cardizem 20 mg x 3 in ED and transition to Cardizem drip. CTPA obtained in the ED without acute evidence of PE or dissection w/ chronic pulmonary findings thus heparin initiated. Will admit to PCU, maintain on telemetry, obtain cardiac enzyme serial set, obtain magnesium level, obtain ECHO, TSH normal. As noted maintained on heparin drip. Upon transition to PCU patient converted to normal sinus rhythm. Cardiology consulted, pending. (2) Acute NSTEMI: EKG in ED w/ as noted atrial fibrillation w/ RVR, CXR with chronic changes. Will admit to PCU, maintain on a monitored bed, continue serial cardiac enzymes and EKGs, maintained on heparin drip which was initiated following CTPA results. Will continue medical management w/ asa, statin intolerance w/ AM FLP pending, cardizem drip currently, await cardiology evaluation for consideration addition BB. Cardiology consulted, recent unremarkable cardiac catheterization. ASA, NG, morphine. (3) Thrombocytosis: Admission Plt 860, prior noted 443, may be reactive especially w/ ongoing temporal arteritis evaluation w/ recently elevated SED rate, will repeat CBC in AM. (4) Possible Temporal Arteritis: Recent admission w/ concern given family history and discomfort w/ palpation, s/p Bx w/ pending results, ESR elevated, plan if positive to initiate steroid regimen following Allergy testing planned this upcoming Wednesday per patient and family report. (5) Allergic Rhinitis: Maintain on flonase regimen, upcoming allergy testing, may be contributing to chronic cough. (6) Chronic Cough: Encouraged patient to consider PFTs, Asthma evaluation given ongoing several month history of chronic cough, noted to be worse in AM pending above noted work-up especially given chronic changes on CXR and CTPA w/ bibasilar atelectasis and diffuse mild bilateral interstitial thickening. (7) Incidental Breast Nodules: CTPA with noted 1.5 similar nodule posteriorly in the left breast and a small nodular density in the right breast. Patient will need to be referred for mammography upon discharge for diagnostic purposes. (8) Hypertension: Holding home Norvasc given usage of IV Cardizem, PRN hydralazine. (9) Hyperlipidemia: Noted statin intolerance, on fish oil outpatient, FLP in AM. (10) Hypothyroidism: Continue home synthroid regimen. TSH normal. (11) GERD: PPI. (12) DVT Prophylaxis: SCDs, heparin drip. Code Visit Inpatient E&M: 87688 Init Hosp L3
--- NOTE | 2017-11-14 07:53 | HP.PCM_ITS ---
Problem List (1) Hypothyroidism Status: Chronic Qualifiers: Hypothyroidism type: unspecified Qualified Code(s): E03.9 - Hypothyroidism , unspecified (2) Hypertension Status: Chronic Qualifiers: Hypertension type: unspecified Qualified Code(s): I10 - Essential (primary ) hypertension (3) HLD (hyperlipidemia) Status: Chronic Qualifiers: Hyperlipidemia type: unspecified Qualified Code(s): E78.5 - Hyperlipidemia , unspecified (4) GERD (gastroesophageal reflux disease) Status: Chronic Qualifiers: Esophagitis presence: esophagitis presence not specified Qualified Code(s) : K21.9 - Gastro-esophageal reflux disease without esophagitis (5) Allergic rhinitis Status: Chronic Qualifiers: Allergic rhinitis trigger: unspecified Allergic rhinitis seasonality: unspecified seasonality Qualified Code(s): J30.9 - Allergic rhinitis, unspecified (6) Temporal arteritis Status: Suspected (7) NSTEMI (non-ST elevated myocardial infarction) Status: Acute (8) Atrial fibrillation with RVR Status: Acute History of Present Illness Date of Admission: 11/14/17 Chief Complaint: Palpitations The patient is a 62 y/o F w/ PMHx: Allergic Rhinitis, Chronic Cough, GERD, Hypothyroidism, HTN, HLD w/ recent admission 10/27/17-10/28/17 with mildly elevated cardiac enzymes at that time felt secondary to demand ischemia with SVT with atypical chest discomfort with jaw claudication with cardiac catheterization performed per Dr. Brooks which revealed LVEF 60% with normal LV systolic function, left main angiographically normal, left anterior descending, circumflex and right coronary artery also angiographically normal. Given patient's unremarkable cardiac catheterization at that time with family history of temporal arteritis with mild discomfort with palpation along temporal arteries CT scan was obtained with noted clear sinuses but small right mastoid effusion with ESR which was 43 therefore it was felt temporal arteritis/ polymyalgia rheumatica as possible etiology given multiple somatic complaints with instruction at that time to follow-up with primary care physician with biopsy set up who presents to the [facility] on 11/14/17 with history of sudden onset increased palpitations at approximately 4: 30 in the morning with no markedly associated chest discomfort/pain or dyspnea following a coughing bout. Patient has had a recent atypical course including ongoing chronic cough for several months with upcoming allergy testing this week, recent bilateral temporal artery biopsies performed secondary to elevated sed rate of unclear etiology with results pending and ongoing autoimmune workup with several month history of decreased appetite, weakness, fatigue. Workup in the ED included T 97.2, initial heart rate 167, BP 122/90, respiratory rate 18, 98% on 2 L nasal cannula , CBC with WBC 13.7, hemoglobin 13, platelet 860 with left shift, normal coags, BMP unremarkable, troponin 3.760 with most recently 10/27/17 prior to most recent admission discharge trop 0.134, recent admission w/ ESR 43, pending pathology from outpatient BL temporal artery biopsy performed ~ week prior, TSH 2.44, Mag 1.8, EKG with atrial fibrillation with RVR although initial concern for supraventricular tachycardia with adenosine administration with rate improvement with serial doses of Cardizem. In the emergency room patient was as noted administered 6 mg IV adenosine followed by 20 mg IV Cardizem repeated 3 times with each time temporary improvement of rate but then recurrent RVR. Dr. Toney, cardiology was consulted per the ED with request for CTPA to be obtained to assure no dissection and to rule out acute pulmonary embolism with continuation of Cardizem drip with initiation of heparin pending assurance that there would was no presence of dissection. Following admission with transition to PCU patient converted to sinus rhythm with rate in the low 90s. Past Medical History Past Medical History (Chronic Problems): Chronic Problems HLD (hyperlipidemia) (Chronic) GERD (gastroesophageal reflux disease) (Chronic) Allergic rhinitis (Chronic) Rhinosinusitis (Chronic) Hypothyroidism (Chronic) Hypertension (Chronic) Myalgia (Chronic) Family history of temporal arteritis (Chronic) Allergies etodolac Allergy (Verified 11/14/17 06:16) Unknown hydroxychloroquine [From Plaquenil] Allergy (Verified 11/14/17 06:16) Rash Sulfa (Sulfonamide Antibiotics) Allergy (Verified 11/14/17 06:16) Hives tramadol Allergy (Verified 11/14/17 06:16) Unknown lisinopril Adverse Reaction (Verified 11/14/17 06:16) dizziness metoprolol Adverse Reaction (Verified 11/14/17 06:16) Other Proton Pump Inhibitors Adverse Reaction (Verified 11/14/17 06:16) Other Plonnat-Mid-Nyt Reductase Inhibitor Adverse Reaction (Verified 11/14/17 06:16) dizziness verapamil Adverse Reaction (Verified 11/14/17 06:16) Other Home Medications: Ambulatory Orders Medication Instructions Recorded RX: Amlodipine [Norvasc] 2.5 mg PO QHS 10/27/17 RX: Ascorbic Acid [Vitamin C] 500 mg PO DAILY@0800 10/27/17 RX: Aspirin 81 mg PO QHS 10/27/17 RX: Cholecalciferol (Vitamin D3) 2,000 unit PO DAILY 10/27/17 [Vitamin D3] RX: Dexlansoprazole [Dexilant] 60 mg PO DAILY 10/27/17 RX: Levothyroxine Sodium 62.5 tab PO DAILY 10/27/17 [Synthroid] RX: [place]-3 Fatty Acids/Fish Oil 1,200 mg PO DAILY 10/27/17 [[place] 3 1,000 mg Softgel] Fluticasone 0.05% [Flonase Nasal 1 spray NASAL BID 11/14/17 [place]] Surgical History: hysterectomy, tonsillectomy, - - Ligation, right carpal tunnel surgery, thyroglossal duct cyst removal, foot surgery Psychiatric History: No pertinent psych hx CAR EXAMINER History: No pertinent CAR EXAMINER history Lives: Spouse/ Significant Other Smoking Status: Never smoker Tobacco Use: Non-smoker Alcohol: None Drugs: None - *Family History Maternal History Items: Heart Disease - at 41 Paternal History Items: Cancer - Lung cancer, prostate cancer Review of Systems Constitutional: Reports: Anorexia, Weakness, Fatigue. Denies: Chills, Fever, Weight Change HEENT: Reports: Head Aches, Post Nasal Drip. Denies: Sinus Congestion, Sinus Drainage Cardiovascular: Reports: Palpitations. Denies: Chest Pain Respiratory: Denies: Cough, Shortness of breath at rest, Sputum production Gastrointestinal: Denies: Abdominal Pain, Nausea, Vomiting Genitourinary: Denies: Dysuria Musculoskeletal: Denies: Joint Pain, Joint Tenderness Skin: Denies: Rash, Wounds Neurological: Denies: Numbness, Tingling, Focal weakness Psychiatric: Denies: Anxiety, Depression, Homicidal Ideations, Suicidal Ideations Hematologic/ Lymphatic: Denies: Easy Bruising, Easy Bleeding VTE Information - Inpt Only VTE Present on Admission: No VTE Mechan Device Prophylaxis: SCD's VTE Pharm Prophylaxis ordered?: Yes Patient Problems: Active and Suspected Problems Temporal arteritis (Suspected) NSTEMI (non-ST elevated myocardial infarction) (Acute) Atrial fibrillation with RVR (Acute) Subjective: Seated upright in the bed, no acute distress, notes feeling improved since initial presentation. Objective: Physical Examination: General: awake, alert, oriented x 3 and cooperative, seated upright in PCU bed in no apparent distress, notes improved since transition to sinus rhythm. Skin: normal color, turgor, no icterus, cyanosis. HEENT: AT/NC, EOMI, PERRLA, MMM, no carotid bruits or JVD noted. Lungs: CTA bilaterally, moderate effort, mild decrease BL bases, no rales, ronchi or wheezing, does have intermittent coughing during examination. Heart: Currently regular rate and rhythm; no gallop, rub audible. Abdomen: soft, NTTP, ND, normal BS, no HSM. Extremities: no cyanosis, clubbing, or edema. Neurological: patient awake, alert, oriented x 3; cognitive function intact; pupils equally reactive to light and accomodation; cranial nerves II-XII grossly normal, moving all 4 extremities, no focal deficits, strength moderately globally decreased secondary to acute presentation although improving. Psychiatric: affect appears normal, moderately fatigued, no acute evidence of depressive or anxiety feelings. - Physical Exam Vital Signs Temp Pulse Resp BP Pulse Ox 97.2 F L 149 H 21 H 112/80 97 11/14/17 05:58 11/14/17 07:19 11/14/17 07:19 11/14/17 07:19 11/14/17 07:19 Oxygen Flow Rate (L/min) 2 Oxygen Delivery Method Nasal Cannula Weight: 137 lb 12.623 oz Body Mass Index (BMI) 22.9 Laboratory Tests Past 24 Hrs 11/14/17 11/14/17 11/14/17 06:10 06:10 06:10 WBC 13.7 H RBC 4.46 Hgb 13.0 Hct 40.3 MCV 90.4 MCH 29.1 MCHC 32.3 RDW 13.3 RDW Differential 43.9 Plt Count 860 H* MPV 8.7 Immature Gran % (Auto) 0.700 Neut % (Auto) 76.3 H Lymph % (Auto) 11.4 L Wayne % (Auto) 8.0 Eos % (Auto) 3.3 Baso % (Auto) 0.3 Absolute Neuts (auto) 10.5 H Absolute Lymphs (auto) 1.56 Total Counted Not Reportable Diff Path Review May foll Platelet Estimate MKD INC PT 14.1 INR 1.1 APTT Sodium 137 Potassium 3.6 Chloride 101 Carbon Dioxide 28.0 Anion Gap 8 BUN 11 Creatinine 0.72 Estim Creat Clear Calc 72.90 Est GFR (MDRD) Af Amer 106 Est GFR (MDRD) Non-Af 87 BUN/Creatinine Ratio 15.3 Glucose 106 Calcium 8.8 Troponin I 3.760 H* TSH 2.44 11/14/17 06:10 WBC RBC Hgb Hct MCV MCH MCHC RDW RDW Differential Plt Count MPV Immature Gran % (Auto) Neut % (Auto) Lymph % (Auto) Wayne % (Auto) Eos % (Auto) Baso % (Auto) Absolute Neuts (auto) Absolute Lymphs (auto) Total Counted Diff Path Review Platelet Estimate PT INR APTT 34.0 Sodium Potassium Chloride Carbon Dioxide Anion Gap BUN Creatinine Estim Creat Clear Calc Est GFR (MDRD) Af Amer Est GFR (MDRD) Non-Af BUN/Creatinine Ratio Glucose Calcium Troponin I TSH Assessment/Plan Active and Suspected Problems Temporal arteritis (Suspected) NSTEMI (non-ST elevated myocardial infarction) (Acute) Atrial fibrillation with RVR (Acute) The patient is a 62 y/o F w/ PMHx: Allergic Rhinitis, Chronic Cough, GERD, Hypothyroidism, HTN, HLD w/ recent admission 10/27/17-10/28/17 with mildly elevated cardiac enzymes at that time felt secondary to demand ischemia with SVT with atypical chest discomfort with jaw claudication with recent unremarkable cardiac catheterization, recent concern for possible temporal arteritis w/ ESR w/ pending Bx who now re-presents to the [facility] on 11/14/17 with history of sudden onset increased palpitations at approximately 4:30 in the morning with no markedly associated chest discomfort/pain or dyspnea following a coughing bout. (1) New onset, Paroxsymal atrial fibrillation w/ Prior Hx SVT: EKG in ED w/ atrial fibrillation w/ RVR. Patient administered serial cardizem 20 mg x 3 in ED and transition to Cardizem drip. CTPA obtained in the ED without acute evidence of PE or dissection w/ chronic pulmonary findings thus heparin initiated. Will admit to PCU, maintain on telemetry, obtain cardiac enzyme serial set, obtain magnesium level, obtain ECHO, TSH normal. As noted maintained on heparin drip. Upon transition to PCU patient converted to normal sinus rhythm. Cardiology consulted, pending. (2) Acute NSTEMI: EKG in ED w/ as noted atrial fibrillation w/ RVR, CXR with chronic changes. Will admit to PCU, maintain on a monitored bed, continue serial cardiac enzymes and EKGs, maintained on heparin drip which was initiated following CTPA results. Will continue medical management w/ asa, statin intolerance w/ AM FLP pending, cardizem drip currently, await cardiology evaluation for consideration addition BB. Cardiology consulted, recent unremarkable cardiac catheterization. ASA, NG, morphine. (3) Thrombocytosis: Admission Plt 860, prior noted 443, may be reactive especially w/ ongoing temporal arteritis evaluation w/ recently elevated SED rate, will repeat CBC in AM. (4) Possible Temporal Arteritis: Recent admission w/ concern given family history and discomfort w/ palpation, s/p Bx w/ pending results, ESR elevated, plan if positive to initiate steroid regimen following Allergy testing planned this upcoming Wednesday per patient and family report. (5) Allergic Rhinitis: Maintain on flonase regimen, upcoming allergy testing, may be contributing to chronic cough. (6) Chronic Cough: Encouraged patient to consider PFTs, Asthma evaluation given ongoing several month history of chronic cough, noted to be worse in AM pending above noted work-up especially given chronic changes on CXR and CTPA w/ bibasilar atelectasis and diffuse mild bilateral interstitial thickening. (7) Incidental Breast Nodules: CTPA with noted 1.5 similar nodule posteriorly in the left breast and a small nodular density in the right breast. Patient will need to be referred for mammography upon discharge for diagnostic purposes. (8) Hypertension: Holding home Norvasc given usage of IV Cardizem, PRN hydralazine. (9) Hyperlipidemia: Noted statin intolerance, on fish oil outpatient, FLP in AM. (10) Hypothyroidism: Continue home synthroid regimen. TSH normal. (11) GERD: PPI. (12) DVT Prophylaxis: SCDs, heparin drip. Code Visit Inpatient E&M: 66789 Init Hosp L3
--- NOTE | 2017-11-14 08:12 | EKG12_ITS ---
Test Reason : CP Blood Pressure : / mmHG Vent. Rate : 178 BPM Atrial Rate : 125 BPM P-R Int : 000 ms QRS Dur : 074 ms QT Int : 316 ms P-R-T Axes : 000 -24 043 degrees QTc Int : 544 ms Atrial fibrillation Nonspecific ST depression Poor R wave progression Abnormal ECG Confirmed by ARA LEES, TIGIST ([id number]), purchase request editor GRECIA BARRAZA ([id number] on 11/17/2017 2:36:49 PM Referred By: SHAKIR Confirmed By:TIGIST BULLOCK MD
--- NOTE | 2017-11-14 08:13 | ED.RN ---
CARDIZEM GTT STOPPED. PT SR ON NURSE RESEARCHER. DR ROSAS NOTIFIED. CALLED FOR EKG FOR CONFIRMATION
--- NOTE | 2017-11-14 08:26 | ED.RN ---
THIS NURSE SPOKE WITH DR BULLOCK. INFORMED PT CONVERTED TO SINUS RHYTHM AND CARDIZEM GTT STOPPED PER DR ROSAS AND DR SPAIN. DR BULLOCK ASKING IF THE HEPARIN GTT STARTED. INFORMED AT THIS TIME CT RESULTS ARE NOT AVAILABLE
[2017-11-14 09:47] LABS: Magnesium 1.8 mg/dL (1.6-2.6)
[2017-11-14] MEDS: 0.9% Normal Saline 1,000 ML 75 ML IV ×2 (11:04→20:20)
[2017-11-14] MEDS: DEXLANSOPRAZOLE 60 MG PO (12:43)
[2017-11-14] MEDS: Ascorbic Acid 500 MG Tablet PO (12:43)
[2017-11-14] MEDS: Heparin Injection 5,000 UNITS/ML Syringe 4500 UNITS IV (13:59)
[2017-11-14] MEDS: oxyCODONE 5 MG Tablet PO (14:54)
--- NOTE | 2017-11-14 15:13 | PCM.CONS.C ---
Problem List (1) Atrial fibrillation with RVR Status: Acute (2) NSTEMI (non-ST elevated myocardial infarction) Status: Acute (3) Hypertension Status: Chronic Qualifiers: Hypertension type: unspecified Qualified Code(s): I10 - Essential (primary) hypertension (4) HLD (hyperlipidemia) Status: Chronic Qualifiers: Hyperlipidemia type: unspecified Qualified Code(s): E78.5 - Hyperlipidemia, unspecified Reason for Consult Date of Consultation: 11/14/17 History of Present Illness: The patient is a 62 year old white female who has previously been evaluated by Odin Brooks MD of the [facility] in terms of chest discomfort with diagnostic cardiac catheterization performed on 10/28/2017 resulting in angiographically normal coronary arteries and normal left ventricle with an LVEF of 60% presents with concerns of recurrent palpitations/rapid heart rate sensation with subsequent findings of atrial fibrillation with rapid ventricular response and abnormal cardiac enzyme levels compatible with a non-ST segment elevation MA. The patient states that she awoke this morning and felt her heart rate going irregular and fast. With that she had the associated sensation of an uncomfortable feeling in her chest as well as being somewhat short of breath. She did not recall any obvious acute nausea, emesis, or diaphoresis. She did not lose consciousness. As this persisted she presented to the emergency department for evaluation. Her emergency department evaluation demonstrated an ECG demonstrating atrial fibrillation with rapid ventricular response with poor R-wave progression with nonspecific ST segment abnormality. She was treated with IV adenosine by the emergency department staff. She had no significant response. She was subsequently treated with IV diltiazem. She was noted to remain in atrial fibrillation with rapid ventricular response. Thus an IV diltiazem infusion was initiated. She was also evaluated with a chest CT scan which did not demonstrate any obvious great vessel disease or thromboembolic disease. She was then placed on IV heparin. Later she was noted to have spontaneous conversion to sinus rhythm. A follow-up ECG in sinus rhythm demonstrated sinus rhythm with a leftward axis with no acute electrocardiographic changes. She states overall at this time she does feel better. She notes she has been undergoing evaluation for connective tissue disease. She recently had a temporal artery biopsy performed at [facility] in [place], [place]. The results are pending. She also states she is due for upcoming allergy testing by ENT this week. She has had a variety of diffuse body aches and discomforts. She states thus far no one has been able to find the etiology for them. She has not placed on any other medications including corticosteroids at this time. She states that decision is pending her upcoming temporal artery biopsy results and her ENT results. [] Past Medical History Allergies/Adverse Reactions: Allergies etodolac Allergy (Verified 11/14/17 06:16) Unknown hydroxychloroquine [From Plaquenil] Allergy (Verified 11/14/17 06:16) Rash Sulfa (Sulfonamide Antibiotics) Allergy (Verified 11/14/17 06:16) Hives tramadol Allergy (Verified 11/14/17 06:16) Unknown lisinopril Adverse Reaction (Verified 11/14/17 06:16) dizziness metoprolol Adverse Reaction (Verified 11/14/17 06:16) Other Proton Pump Inhibitors Adverse Reaction (Verified 11/14/17 06:16) Other O[place]ilfld-Bat-Iqm Reductase Inhibitor Adverse Reaction (Verified 11/14/17 06:16) dizziness verapamil Adverse Reaction (Verified 11/14/17 06:16) Other Home Medications: Ambulatory Orders Medication Instructions Recorded Amlodipine [Norvasc] 2.5 mg PO QHS 10/27/17 Ascorbic Acid [Vitamin C] 500 mg PO DAILY@0800 10/27/17 Aspirin 81 mg PO QHS 10/27/17 Cholecalciferol (Vitamin D3) 2,000 unit PO DAILY 10/27/17 [Vitamin D3] Dexlansoprazole [Dexilant] 60 mg PO DAILY 10/27/17 Levothyroxine Sodium [Synthroid] 62.5 mcg PO DAILY 10/27/17 [place]-3 Fatty Acids/Fish Oil 1,200 mg PO DAILY 10/27/17 [[place] 3 1,000 mg Softgel] Fluticasone 0.05% [Flonase Nasal 1 spray NASAL BID 11/14/17 [place]] Past Medical History (Chronic Problems): Chronic Problems HLD (hyperlipidemia) (Chronic) GERD (gastroesophageal reflux disease) (Chronic) Allergic rhinitis (Chronic) Rhinosinusitis (Chronic) Hypothyroidism (Chronic) Hypertension (Chronic) Myalgia (Chronic) Family history of temporal arteritis (Chronic) Surgical History: hysterectomy, tonsillectomy, - - Ligation, right carpal tunnel surgery, thyroglossal duct cyst removal, foot surgery Psychiatric History: No pertinent psych hx 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 Denies: Fever, Night Sweats Cardiovascular: Reports: Chest Discomfort, Palpitations. Denies: Shortness of Breath, Orthopnea, PND, Peripheral Edema, Lightheadedness, Dizziness, Near Syncope, Syncope Respiratory: Denies: Sputum Production, Hemoptysis Gastrointestinal: Denies: Hematemesis, Hematochezia, Melena Genitourinary: Denies: Dysuria, Hematuria Muscoloskeletal: Reports: Myalgias, Back Pain, Hand Pain, Foot Pain Skin: Denies: Rash Neurological: Reports: Weakness Subjectve: This is a 62-year-old white female who appears to be resting comfortably at the moment in no acute distress. Objective: Vital Signs Temp Pulse Resp BP Pulse Ox 99.2 F H 103 H 18 122/76 H 97 11/14/17 09:34 11/14/17 11:18 11/14/17 09:34 11/14/17 09:34 11/14/17 09:34 Oxygen Flow Rate (L/min) 2 Oxygen Delivery Method Room Air Weight: 136 lb 0.403 oz Body Mass Index (BMI) 22.6 Intake and Output for Last 24 Hours 11/12/17 11/13/17 11/14/17 23:59 23:59 23:59 Intake Total 513 / 513 Balance 513 / 513 General: Awake, Alert, Oriented x 3, Cooperative, No Acute Distress Neck: Supple, Good ROM, No JVD Lungs: Clear to auscultation Cardiovascular: Regular Rhythm, Normal S1, Normal S2, Positive S4 Vascular: No Carotid Bruits Abdomen: Bowel Sounds Present, Soft, Non Tender Extremities: No Cyanosis, No Clubbing, No edema 11/14/17 10:08: Troponin I 3.620 H* 11/14/17 12:48: Troponin I 3.700 H* Rhythm: Sinus rhythm EKG: As noted above Cardiac Cath: Chest CT Scan: As noted above Assessment/Plan 1. Atrial fibrillation with rapid ventricular response The patient states she has had palpitations and rapid heart rate in the past. It is never been documented. This time she was found to have atrial fibrillation with rapid ventricular response. She has been treated medically with IV diltiazem. She had conversion to sinus rhythm. She is being monitored. She should be considered for additional medical management. This would include rate control therapy. This can include calcium channel antagonist. It may also include beta-rosa therapy. However she claims to have had adverse reactions to beta-blockers. She should also be considered for a coagulation therapy based upon a [id number] score of at least 2 (possible 3 pending upon whether or not she has underlying vascular disease). However, as this is her first documented episode of atrial fibrillation, it was brief, and she is pending upcoming additional invasive studies including allergy testing, etc., it may not be unreasonable to temporarily hold on additional antiplatelet/anticoagulant agents to avoid procedure related hemorrhagic issues. Once her procedures are completed then she can be considered for systemic oral anticoagulant therapy. So, depending upon her course, if she has recurrent events, she may need to be considered for antiarrhythmic therapy. Noting that she recently had diagnostic cardiac catheterization performed which demonstrated angiographically normal coronary arteries, and preserved LV systolic function, she could be considered for agents such as flecainide/Tambocor. She reportedly has some side effect or adverse reaction to beta blockers thus agent such as Betapace/sotalol may not be appropriate for her. 2. Non-ST segment elevation MA She was found to have elevated cardiac enzymes. This may be a type II event secondary to her atrial fibrillation with rapid ventricular response knowing that her recent diagnostic cardiac catheterization demonstrated angiographically normal-appearing coronary arteries. It appears less likely, without ongoing symptoms or additional electrocardiographic changes, etc. that this is related to atrial fibrillation thromboembolic events involving the coronary arteries. She is also been assessed for great vessel disease and thromboembolic disease such as PE by CT scan which has been reported as negative. Ideally she would continue medical management such as aspirin, consideration to antiplatelet therapy, possibly beta-rosa therapy, possibly MIRIAN inhibitor therapy, etc. However she does have reports of adverse reaction to beta blockers and MIRIAN inhibitors. Thus she may need to be delegated to other medications. In the meantime she will be asked to have an echocardiogram to assess her ventricular wall motion and systolic function. 3. Hypertension He will continue medical management as deemed appropriate. 4. Hyperlipidemia She should continue risk factor evaluation and care. However, she states she has adverse reaction to statins and thus cannot tolerate statins as a lipid-lowering agent. Comment: The patient's case has been previously discussed with patient, her family members present, and the [facility] emergency department staff. This note was generated with [employer] dictation software. It may contain incorrect words, spelling, and punctuation that were not noted in checking the note before signing.
--- NOTE | 2017-11-14 15:37 | CON.PCM_ITS ---
Problem List (1) Atrial fibrillation with RVR Status: Acute (2) NSTEMI (non-ST elevated myocardial infarction) Status: Acute (3) Hypertension Status: Chronic Qualifiers: Hypertension type: unspecified Qualified Code(s): I10 - Essential (primary ) hypertension (4) HLD (hyperlipidemia) Status: Chronic Qualifiers: Hyperlipidemia type: unspecified Qualified Code(s): E78.5 - Hyperlipidemia , unspecified Reason for Consult Date of Consultation: 11/14/17 History of Present Illness: The patient is a 62 year old white female who has previously been evaluated by Odin Brooks MD of the [facility] in terms of chest discomfort with diagnostic cardiac catheterization performed on 10/28/2017 resulting in angiographically normal coronary arteries and normal left ventricle with an LVEF of 60% presents with concerns of recurrent palpitations/rapid heart rate sensation with subsequent findings of atrial fibrillation with rapid ventricular response and abnormal cardiac enzyme levels compatible with a non- ST segment elevation LA. The patient states that she awoke this morning and felt her heart rate going irregular and fast. With that she had the associated sensation of an uncomfortable feeling in her chest as well as being somewhat short of breath. She did not recall any obvious acute nausea, emesis, or diaphoresis. She did not lose consciousness. As this persisted she presented to the emergency department for evaluation. Her emergency department evaluation demonstrated an ECG demonstrating atrial fibrillation with rapid ventricular response with poor R-wave progression with nonspecific ST segment abnormality. She was treated with IV adenosine by the emergency department staff. She had no significant response. She was subsequently treated with IV diltiazem. She was noted to remain in atrial fibrillation with rapid ventricular response. Thus an IV diltiazem infusion was initiated. She was also evaluated with a chest CT scan which did not demonstrate any obvious great vessel disease or thromboembolic disease. She was then placed on IV heparin. Later she was noted to have spontaneous conversion to sinus rhythm. A follow- up ECG in sinus rhythm demonstrated sinus rhythm with a leftward axis with no acute electrocardiographic changes. She states overall at this time she does feel better. She notes she has been undergoing evaluation for connective tissue disease. She recently had a temporal artery biopsy performed at [facility] in [place], [place]. The results are pending. She also states she is due for upcoming allergy testing by ENT this week. She has had a variety of diffuse body aches and discomforts. She states thus far no one has been able to find the etiology for them. She has not placed on any other medications including corticosteroids at this time. She states that decision is pending her upcoming temporal artery biopsy results and her ENT results. [] Past Medical History Allergies/Adverse Reactions: Allergies etodolac Allergy (Verified 11/14/17 06:16) Unknown hydroxychloroquine [From Plaquenil] Allergy (Verified 11/14/17 06:16) Rash Sulfa (Sulfonamide Antibiotics) Allergy (Verified 11/14/17 06:16) Hives tramadol Allergy (Verified 11/14/17 06:16) Unknown lisinopril Adverse Reaction (Verified 11/14/17 06:16) dizziness metoprolol Adverse Reaction (Verified 11/14/17 06:16) Other Proton Pump Inhibitors Adverse Reaction (Verified 11/14/17 06:16) Other Qnkhprx-Tek-Fyw Reductase Inhibitor Adverse Reaction (Verified 11/14/17 06:16) dizziness verapamil Adverse Reaction (Verified 11/14/17 06:16) Other Home Medications: Ambulatory Orders Medication Instructions Recorded Amlodipine [Norvasc] 2.5 mg PO QHS 10/27/17 Ascorbic Acid [Vitamin C] 500 mg PO DAILY@0800 10/27/17 Aspirin 81 mg PO QHS 10/27/17 Cholecalciferol (Vitamin D3) 2,000 unit PO DAILY 10/27/17 [Vitamin D3] Dexlansoprazole [Dexilant] 60 mg PO DAILY 10/27/17 Levothyroxine Sodium [Synthroid] 62.5 mcg PO DAILY 10/27/17 Commodore-3 Fatty Acids/Fish Oil 1,200 mg PO DAILY 10/27/17 [Commodore 3 1,000 mg Softgel] Fluticasone 0.05% [Flonase Nasal 1 spray NASAL BID 11/14/17 [place]] Past Medical History (Chronic Problems): Chronic Problems HLD (hyperlipidemia) (Chronic) GERD (gastroesophageal reflux disease) (Chronic) Allergic rhinitis (Chronic) Rhinosinusitis (Chronic) Hypothyroidism (Chronic) Hypertension (Chronic) Myalgia (Chronic) Family history of temporal arteritis (Chronic) Surgical History: hysterectomy, tonsillectomy, - - Ligation, right carpal tunnel surgery, thyroglossal duct cyst removal, foot surgery Psychiatric History: No pertinent psych hx 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 Denies: Fever, Night Sweats Cardiovascular: Reports: Chest Discomfort, Palpitations. Denies: Shortness of Breath, Orthopnea, PND, Peripheral Edema, Lightheadedness, Dizziness, Near Syncope, Syncope Respiratory: Denies: Sputum Production, Hemoptysis Gastrointestinal: Denies: Hematemesis, Hematochezia, Melena Genitourinary: Denies: Dysuria, Hematuria Muscoloskeletal: Reports: Myalgias, Back Pain, Hand Pain, Foot Pain Skin: Denies: Rash Neurological: Reports: Weakness Subjectve: This is a 62-year-old white female who appears to be resting comfortably at the moment in no acute distress. Objective: Vital Signs Temp Pulse Resp BP Pulse Ox 99.2 F H 103 H 18 122/76 H 97 11/14/17 09:34 11/14/17 11:18 11/14/17 09:34 11/14/17 09:34 11/14/17 09:34 Oxygen Flow Rate (L/min) 2 Oxygen Delivery Method Room Air Weight: 136 lb 0.403 oz Body Mass Index (BMI) 22.6 Intake and Output for Last 24 Hours 11/12/17 11/13/17 11/14/17 23:59 23:59 23:59 Intake Total 513 / 513 Balance 513 / 513 General: Awake, Alert, Oriented x 3, Cooperative, No Acute Distress Neck: Supple, Good ROM, No JVD Lungs: Clear to auscultation Cardiovascular: Regular Rhythm, Normal S1, Normal S2, Positive S4 Vascular: No Carotid Bruits Abdomen: Bowel Sounds Present, Soft, Non Tender Extremities: No Cyanosis, No Clubbing, No edema 11/14/17 10:08: Troponin I 3.620 H* 11/14/17 12:48: Troponin I 3.700 H* Rhythm: Sinus rhythm EKG: As noted above Cardiac Cath: Chest CT Scan: As noted above Assessment/Plan 1. Atrial fibrillation with rapid ventricular response The patient states she has had palpitations and rapid heart rate in the past. It is never been documented. This time she was found to have atrial fibrillation with rapid ventricular response. She has been treated medically with IV diltiazem. She had conversion to sinus rhythm. She is being monitored. She should be considered for additional medical management. This would include rate control therapy. This can include calcium channel antagonist. It may also include beta-rosa therapy. However she claims to have had adverse reactions to beta-blockers. She should also be considered for a coagulation therapy based upon a [id number]- VASc score of at least 2 (possible 3 pending upon whether or not she has underlying vascular disease). However, as this is her first documented episode of atrial fibrillation, it was brief, and she is pending upcoming additional invasive studies including allergy testing, etc., it may not be unreasonable to temporarily hold on additional antiplatelet/anticoagulant agents to avoid procedure related hemorrhagic issues. Once her procedures are completed then she can be considered for systemic oral anticoagulant therapy. So, depending upon her course, if she has recurrent events, she may need to be considered for antiarrhythmic therapy. Noting that she recently had diagnostic cardiac catheterization performed which demonstrated angiographically normal coronary arteries, and preserved LV systolic function, she could be considered for agents such as flecainide/Tambocor. She reportedly has some side effect or adverse reaction to beta blockers thus agent such as Betapace/sotalol may not be appropriate for her. 2. Non-ST segment elevation LA She was found to have elevated cardiac enzymes. This may be a type II event secondary to her atrial fibrillation with rapid ventricular response knowing that her recent diagnostic cardiac catheterization demonstrated angiographically normal-appearing coronary arteries. It appears less likely, without ongoing symptoms or additional electrocardiographic changes, etc. that this is related to atrial fibrillation thromboembolic events involving the coronary arteries. She is also been assessed for great vessel disease and thromboembolic disease such as PE by CT scan which has been reported as negative. Ideally she would continue medical management such as aspirin, consideration to antiplatelet therapy, possibly beta-rosa therapy, possibly MIRIAN inhibitor therapy, etc. However she does have reports of adverse reaction to beta blockers and MIRIAN inhibitors. Thus she may need to be delegated to other medications. In the meantime she will be asked to have an echocardiogram to assess her ventricular wall motion and systolic function. 3. Hypertension He will continue medical management as deemed appropriate. 4. Hyperlipidemia She should continue risk factor evaluation and care. However, she states she has adverse reaction to statins and thus cannot tolerate statins as a lipid- lowering agent. Comment: The patient's case has been previously discussed with patient, her family members present, and the [facility] emergency department staff. This note was generated with [employer] dictation software. It may contain incorrect words, spelling, and punctuation that were not noted in checking the note before signing.
[2017-11-14] MEDS: Ipratropium Bromide 0.06% NASAL SPRAY 2 SPRAY NASAL ×2 (15:46→21:00)
[2017-11-14] MEDS: Levothyroxine 125 MCG Tablet 62.5 MCG PO (15:46)
[2017-11-14] MEDS: dilTIAZem CD 120 MG Capsule PO (17:03)
--- NOTE | 2017-11-14 17:22 | RAD_ITS ---
STUDY: X-RAY - RIGHT WRIST REASON FOR EXAM: Female, 62 years old. Pain. No injury. TECHNIQUE: 2 view(s) of the wrist were obtained. COMPARISON: None. FINDINGS: There is demineralization of the radius and ulna. There is a well-circumscribed round bony density distal to the ulna which may reflect an ossicle or may be secondary to an old injury. There is degenerative arthrosis of the radiocarpal articulation. Normal distal radioulnar articulation. Normal carpal bones. Normal carpal articulations. 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 There is degenerative arthrosis of the carpometacarpal articulation of the thumb. Normal second through fifth carpometacarpal articulations. Normal visualized metacarpal bones. The soft tissue structures are unremarkable. RAD/Wrist 2 Views IMPRESSION: Degenerative changes. Chondrocalcinosis. Electronically Signed: Xiomy Price MD at 18:23 EDT Tel , Service support ,
[2017-11-14 20:40] LABS: Partial Thromboplast Time 68.4 Seconds (24.1-36.2)
[2017-11-14] MEDS: 0.9% NaCl Peripheral Flush Adult/Peds IV (20:59)
[2017-11-14] MEDS: Aspirin 81 MG TAB.CHEW PO (20:59)
[2017-11-14] MEDS: Acetaminophen 325 MG Tablet 650 MG PO (21:01)
[2017-11-14] MEDS: Ondansetron 4 MG/2 ML Vial IV (21:01)
[2017-11-15] VITALS (11 sets, daily range): BP systolic 108–137; BP diastolic 72–86; PULSE 75–104; RESP 16; TEMP 37–37.6; O2SAT 95–97
[2017-11-15 02:43] LABS: Partial Thromboplast Time 64.8 Seconds (24.1-36.2)
[2017-11-15] MEDS: Acetaminophen 325 MG Tablet 650 MG PO ×4 (04:15→23:56)
[2017-11-15] MEDS: Levothyroxine 125 MCG Tablet 62.5 MCG PO (04:16)
[2017-11-15] MEDS: Ipratropium Bromide 0.06% NASAL SPRAY 2 SPRAY NASAL ×3 (04:16→22:12)
--- NOTE | 2017-11-15 05:55 | EKG12_ITS ---
Test Reason : RHYTHM CHANGE Blood Pressure : / mmHG Vent. Rate : 098 BPM Atrial Rate : 098 BPM P-R Int : 126 ms QRS Dur : 072 ms QT Int : 376 ms P-R-T Axes : 046 -25 050 degrees QTc Int : 480 ms Normal sinus rhythm Leftward axis Low voltage QRS (LIMB LEADS) Confirmed by ARA LEES, TIGIST ([id number]), movie editor GRECIA BARRAZA ([id number]) on 11/17/2017 2:41:07 PM Referred By: ALISON/JAX Confirmed By:TIGIST BULLOCK MD
--- NOTE | 2017-11-15 05:55 | ECHOD_ITS ---
Reason For Study: Afib Procedure This was a 2D Doppler, Color Flow transthoracic echocardiogram. The exam was of fair technical quality due to diminished acoustic windows. The study was technically difficult. Exam performed portable in patient room. Left Ventricle Normal LV size. Left ventricular systolic function is normal. The estimated ejection fraction is 70 %. Unable to assess diastolic dysfunction. No regional wall motion abnormalities noted. Right Ventricle Normal RV size. Normal systolic function. Atria Normal left atrium. Normal right atrium. No doppler evidence for ASD. Mitral Valve There is no mitral annular calcification. Mild diffuse mitral valve thickening. Trivial mitral valve insufficiency. Tricuspid Valve Normal tricuspid valve. Trivial tricuspid valve insufficiency. Unable to estimate RV systolic pressure/pulmonary artery pressure due to technically difficult study. Aortic Valve Trisinus/trileaflet aortic valve. Normal aortic valve. Trivial aortic valve insufficiency. Pulmonic Valve The pulmonic valve is not well visualized. Trivial pulmonic valve insufficiency. Great Vessels Normal sized aortic root. Pericardium/Pleural No pericardial effusion. MMode/2D Measurements & Calculations LVIDd: 3.9 cm IVSd: 1.5 cm Ao root diam: 4.2 cm LVIDs: 2.2 cm LVPWd: 1.1 cm LA dimension: 3.1 cm FS: 44.8 % LAV(MOD-bp): 32.7 ml LA A4 area: 14.6 cm2 RA A4 area: 13.7 cm2 LAV(MOD-bp) Indexed: 19.5 ml/m2 LAV(MOD-sp2): 28.2 ml LAV(MOD-sp4): 36.9 ml Time Measurements MV dec time: 0.25 sec Doppler Measurements & Calculations MV E max humphrey: 95.5 cm/sec Lat Peak E' Humphrey: 8.9 cm/sec Med Peak E' Humphrey: 9.0 cm/sec MV A max humphrey: 99.8 cm/sec E/E' lat: 10.7 E/E' med: 10.6 MV E/A: 0.96 MV V2 max: 111.7 cm/sec MV P1/2t max humphrey: 105.0 cm/sec Ao V2 max: 177.2 cm/sec MV max P.0 mmHg MV P1/2t: 79.8 msec Ao max P.6 mmHg MV V2 mean: 73.9 cm/sec MV dec slope: 385.4 cm/sec2 Ao V2 mean: 116.8 cm/sec MV mean P.5 mmHg MVA(P1/2t): 2.8 cm2 Ao mean P.3 mmHg MV V2 VTI: 27.7 cm Ao V2 VTI: 27.2 cm AI max humphrey: 459.0 cm/sec LV V1 max: 171.8 cm/sec PA V2 max: 122.3 cm/sec AI max P.3 mmHg LV V1 max P.8 mmHg AI dec slope: 332.0 cm/sec2 LV V1 mean P.0 mmHg AI P1/2t: 405.0 msec LV V1 mean: 99.8 cm/sec LV V1 VTI: 29.8 cm Interpretation Summary The study was technically difficult. Left ventricular systolic function is normal. The estimated ejection fraction is 70 %. Mild diffuse mitral valve thickening. Trivial mitral valve insufficiency. Trivial tricuspid valve insufficiency. Trivial aortic valve insufficiency. Trivial pulmonic valve insufficiency. Unable to estimate RV systolic pressure/pulmonary artery pressure due to technically difficult study. Unable to assess diastolic dysfunction. Ordering Physician: Canelo Toney Referring Physician: Gladys Martinez Performed By: Jordan Harrison RCS
[2017-11-15 07:22] LABS: Absolute Lymphocyte Count 1.33 X10^3/ul (0.83-4.51); Absolute Neutrophil Count 11.4 X10^3/uL (2.0-7.7); Basophil# 0.04 X10^3/uL; Basophil% 0.3 % (0-1); Eosinophils% 2.1 % (0-5); Hematocrit 34.9 % (37-47); Lymphocyte # 1.33 X10^3/ul (4.0); Lymphocyte % 9.3 % (19-41); Mean Corp Hgb Conc 31.5 g/gl (32-36); Mean Corpuscular Hgb 28.7 pg (27.0-32.0); Mean Corpuscular Volume 91.1 fL (81-99); Mean Platelet Vol. 8.2 fl (6.2-12.0); Monocyte# 1.14 X10^3/uL; Monocyte% 7.9 % (0-10); Neutrophil # 11.41 X10^3/uL (2.7-7.7); Neutrophil % 79.5 % (47-70); POSITIVE COUNT NO; POSITIVE DIFFERENTIAL NO; POSITIVE MORPHOLOGY NO; Platelet Count 732 K/mm3 (150-450); RBC Distribution Width CV 13.7 % (11.6-14.6); RBC Distribution Width SD 45.2 fl (35.1-43.9); Red Blood Count 3.83 M/mm3 (4.2-5.4); White Blood Count 14.4 K/mm3 (4.4-11.0)
[2017-11-15 08:26] LABS: Anion Gap 7 (5-15); BUN 6 mg/dL (7-18); BUN/Creat Ratio 11.3 RATIO (10-20); Calcium,Total 8.2 mg/dL (8.5-10.1); Chloride 106 mmol/L (98-107); Cholesterol 114 mg/dL (200); Creatinine, Serum 0.53 mg/dL (0.55-1.02); EST Glomerular Filtration Rate 124 mL/min (>60); Est Glom Filt Rate - Afr Amer 150 mL/min (>60); Estimated Creatinine Clearance 99.03 ml/min; Glucose 102 mg/dL (74-106); High Density Lipoprotein 35 mg/dL; Potassium 3.8 mmol/L (3.5-5.1); Sodium Level 141 mmol/L (136-145); Triglycerides 93 mg/dL; Very Low Density Lipoprotein 19 mg/dL (5-40)
[2017-11-15 09:14] LABS: Partial Thromboplast Time 64.8 Seconds (24.1-36.2)
[2017-11-15] MEDS: 0.9% Normal Saline 1,000 ML 75 ML IV ×2 (10:13→23:30)
[2017-11-15] MEDS: dilTIAZem CD 120 MG Capsule PO ×2 (10:14→22:12)
[2017-11-15] MEDS: DEXLANSOPRAZOLE 60 MG PO (10:15)
[2017-11-15] MEDS: Ascorbic Acid 500 MG Tablet PO (10:18)
--- NOTE | 2017-11-15 13:31 | PCM.PROGNOTE ---
Patient Problems: Active and Suspected Problems Interstitial pneumonitis (Suspected) Rheumatoid arthritis (Suspected) NSTEMI (non-ST elevated myocardial infarction) (Acute) Atrial fibrillation with RVR (Acute) Subjective: The patient is a 62-year-old female with a past medical history of hypothyroidism, hypertension, hyperlipidemia, GERD, allergic rhinitis and suspected temporal arteritis who was recently admitted to [facility] for jaw pain and atypical chest discomfort. Cardiac catheterization revealed a left ventricular ejection fraction of 60% with no significant coronary artery disease. She was discharged and referred to her PCP for evaluation for possible temporal arteritis since she had multiple somatic complaints, jaw claudication and an elevated ESR at 43. She had BL temporal artery biopsies. She presented to the ED at [facility] on 11/14/2017 complaining of increased palpitations. Troponin was increased at 3.76 in the emergency room. TSH was normal at 2.44. EKG showed atrial fibrillation with rapid ventricular response. CT of the chest was normal. Also seen on the chest CT was a 1.5 cm nodule posteriorly in the left breast and a small nodular density in the right breast. She was admitted to a monitored bed on PCU and cardiology was consulted. She converted to normal sinus rhythm with intravenous Cardizem. She continues to c/o total body pain, jaw pain but, now she has swelling of the right wrist with pain and decreased ROM. Has not followed up with a electromatic typist in many years. Gets her knees injected regularly. Has had a bone density in the past but not for at least 10 years. Objective: PHYSICAL EXAM: GENERAL: alert, oriented X 3, Cooperative, NAD ORAL: moist mucosa, no mucosal lesions NECK: No JVD, supple, trachea midline LUNGS: CTA, symmetric chest expansion HEART: RRR, Normal S1 and S2, no rub, no gallop ABDOMEN: soft, NT, ND, BS present, no guarding with palpation EXTREMITIES: The right wrist is swollen and she has decreased flexion and extension. there is no erythema but, there is mild increased warmth to touch. There are joint deformities at the SIP and PIP's and swelling of the MCP joints on both hands. there is thenar wasting SKIN: No rashes, no breakdown NEUROLOGIC: no focal neurologic deficits PSYCH: appropriate, normal affect, pleasant - Physical Exam Vital Signs Temp Pulse Resp BP Pulse Ox 98.7 F 100 16 124/80 H 96 11/15/17 10:06 11/15/17 11:38 11/15/17 10:06 11/15/17 10:06 11/15/17 10:06 Oxygen Flow Rate (L/min) 2 Oxygen Delivery Method Room Air Weight: 135 lb 2.294 oz Body Mass Index (BMI) 22.6 Intake and Output for Last 24 Hours 11/13/17 11/14/17 11/15/17 23:59 23:59 23:59 Intake Total 2251 / 2251 2084 / 2084 Output Total 1100 / 1100 1550 / 1550 Balance 1151 / 1151 534 / 534 Laboratory Tests Past 24 Hrs 11/14/17 11/15/17 11/15/17 20:05 02:21 06:57 WBC 14.4 H RBC 3.83 L Hgb 11.0 L Hct 34.9 L MCV 91.1 MCH 28.7 MCHC 31.5 L RDW 13.7 RDW Differential 45.2 H Plt Count 732 H MPV 8.2 Immature Gran % (Auto) 0.900 Neut % (Auto) 79.5 H Lymph % (Auto) 9.3 L [place] % (Auto) 7.9 Eos % (Auto) 2.1 Baso % (Auto) 0.3 Absolute Neuts (auto) 11.4 H Absolute Lymphs (auto) 1.33 Total Counted Not Reportable APTT 68.4 H 64.8 H Sodium Potassium Chloride Carbon Dioxide Anion Gap BUN Creatinine Estim Creat Clear Calc Est GFR (MDRD) Af Amer Est GFR (MDRD) Non-Af BUN/Creatinine Ratio Glucose Calcium Troponin I Triglycerides Cholesterol LDL Cholesterol VLDL Cholesterol HDL Cholesterol 11/15/17 11/15/17 11/15/17 06:57 08:20 08:20 WBC RBC Hgb Hct MCV MCH MCHC RDW RDW Differential Plt Count MPV Immature Gran % (Auto) Neut % (Auto) Lymph % (Auto) [place] % (Auto) Eos % (Auto) Baso % (Auto) Absolute Neuts (auto) Absolute Lymphs (auto) Total Counted APTT 64.8 H Sodium 141 Potassium 3.8 Chloride 106 Carbon Dioxide 28.0 Anion Gap 7 BUN 6 L Creatinine 0.53 L Estim Creat Clear Calc 99.03 Est GFR (MDRD) Af Amer 150 Est GFR (MDRD) Non-Af 124 BUN/Creatinine Ratio 11.3 Glucose 102 Calcium 8.2 L Troponin I 3.550 H* 3.410 H* Triglycerides 93 Cholesterol 114 LDL Cholesterol 60 VLDL Cholesterol 19 HDL Cholesterol 35 L Medical Necessity - Tobacco Use Smoking Status: Never smoker Tobacco Use: Non-smoker Assessment/Plan Active and Suspected Problems Interstitial pneumonitis (Suspected) Rheumatoid arthritis (Suspected) NSTEMI (non-ST elevated myocardial infarction) (Acute) Atrial fibrillation with RVR (Acute) Impressions 1. AF with RVR - converted to NSR - appreciate Dr. Toney's input. will continue Cardizem and Eliquis. 2. suspected temporal arteritis - obtain the results of the recent bx of both temporal arteries. No steroids unless the biopsy is positive 3. suspect she has a CT disease - like RA 4. chronic cough - I do not think she has allergies as the cause of this cough. She has scarring in the base of both lungs and I suspect she may have pulmonary fibrosis or interstitial lung disease. 5. NSTEMI likely related to A. fib with RVR 6. Thrombocytosis-this is new for her since her last admission. May be related to increasing inflammation. 7. Incidentally noted breast nodules on the CT of the chest will need followed up by her primary care physician 8. Hypertension 9. Hyperlipidemia 10. Hypothyroidism 11. GERD RA, SHADIA panel, ESR, CRP, C3, C4, CH 50, HLA-B27 Recheck lab in the a.m. Consider pulmonary consult Code Visit Inpatient E&M: 66245 Subs Hosp L2
--- NOTE | 2017-11-15 15:20 | PN.CARD_ITS ---
Subjectve: The patient appears to be resting comfortably at this time. She noted brief episodes of what she would describe as a fast heart rate since yesterday evening throughout the night. She has had no other acute complaints from a cardiovascular standpoint. Objective: Vital Signs Temp Pulse Resp BP Pulse Ox 98.7 F 100 16 124/80 H 96 11/15/17 10:06 11/15/17 11:38 11/15/17 10:06 11/15/17 10:06 11/15/17 10:06 Oxygen Flow Rate (L/min) 2 Oxygen Delivery Method Room Air Weight: 135 lb 2.294 oz Body Mass Index (BMI) 22.6 Intake and Output for Last 24 Hours 11/13/17 11/14/17 11/15/17 23:59 23:59 23:59 Intake Total 2251 / 2251 2084 / 2084 Output Total 1100 / 1100 1550 / 1550 Balance 1151 / 1151 534 / 534 General: Awake, Alert, Oriented x 3, Cooperative, No Acute Distress Neck: No JVD Lungs: Clear to auscultation Cardiovascular: Regular Rhythm, Normal S1, Normal S2 Murmur Murmur: Grade 2/6, Mid Systolic, LLSB, LVOT Vascular: No Carotid Bruits Abdomen: Bowel Sounds Present, Soft, Non Tender Extremities: No edema 11/14/17 20:05: APTT 68.4 H 11/15/17 02:21: APTT 64.8 H 11/15/17 06:57: WBC 14.4 H, RBC 3.83 L, Hgb 11.0 L, Hct 34.9 L, MCV 91.1, MCH 28.7, MCHC 31.5 L, RDW 13.7, RDW Differential 45.2 H, Plt Count 732 H, MPV 8.2, Immature Gran % (Auto) 0.900, Neut % (Auto) 79.5 H, Lymph % (Auto) 9.3 L, [place] % (Auto) 7.9, Eos % (Auto) 2.1, Baso % (Auto) 0.3, Absolute Neuts (auto) 11.4 H , Total Counted Not Reportable 11/15/17 06:57: Sodium 141, Potassium 3.8, Chloride 106, Carbon Dioxide 28.0, Anion Gap 7, BUN 6 L, Creatinine 0.53 L, Est GFR (MDRD) Af Amer 150, Est GFR ( MDRD) Non-Af 124, BUN/Creatinine Ratio 11.3, Glucose 102, Calcium 8.2 L, Troponin I 3.550 H*, Triglycerides 93, Cholesterol 114, LDL Cholesterol 60, VLDL Cholesterol 19, HDL Cholesterol 35 L 11/15/17 08:20: APTT 64.8 H 11/15/17 08:20: Troponin I 3.410 H* Rhythm: Sinus rhythm; paroxysmal atrial fibrillation-brief EKG: Pending rhythm; no acute ECG changes ECHO: Pending Medical Necessity - Tobacco Use Smoking Status: Never smoker Tobacco Use: Non-smoker Assessment/Plan 1. Atrial fibrillation with rapid ventricular response The patient states she has had palpitations and rapid heart rate in the past. It is never been documented. This time she was found to have atrial fibrillation with rapid ventricular response. She has been treated medically with IV diltiazem. She had conversion to sinus rhythm. She is being monitored. She has had episodes of recurrent PAF-brief. This would include rate control therapy. This can include calcium channel antagonist. She was placed on low-dose diltiazem therapy. She should also be considered for anitcoagulation therapy based upon a [id number]- VASc score of at least 2 (possible 3 pending upon whether or not she has underlying vascular disease). However, as previously noted, she does have upcoming procedures that require invasive techniques that on anticoagulant therapy would produce hemorrhagic issues. Thus it may not be unreasonable to temporarily hold on systemic oral anticoagulant therapy. Once her procedures are completed then she can be considered for systemic oral anticoagulant therapy. So, depending upon her course, if she has recurrent events, she may need to be considered for antiarrhythmic therapy. Noting that she recently had diagnostic cardiac catheterization performed which demonstrated angiographically normal coronary arteries, and preserved LV systolic function, she could be considered for agents such as flecainide/Tambocor possibly dofetilide. She reportedly has some side effect or adverse reaction to beta blockers thus agent such as Betapace/sotalol may not be appropriate for her. 2. Non-ST segment elevation NM She was found to have elevated cardiac enzymes. They are decreasing. This may be a type II event secondary to her atrial fibrillation with rapid ventricular response knowing that her recent diagnostic cardiac catheterization demonstrated angiographically normal-appearing coronary arteries. It appears less likely, without ongoing symptoms or additional electrocardiographic changes , etc. that this is related to atrial fibrillation thromboembolic events involving the coronary arteries. She is also been assessed for great vessel disease and thromboembolic disease such as PE by CT scan which has been reported as negative. Ideally she would continue medical management such as aspirin, consideration to antiplatelet therapy, possibly beta-rosa therapy, possibly MIRIAN inhibitor therapy, etc. However she does have reports of adverse reaction to beta blockers and MIRIAN inhibitors. Thus she may need to be delegated to other medications. In the meantime she will be asked to have an echocardiogram to assess her ventricular wall motion and systolic function. 3. Hypertension He will continue medical management as deemed appropriate. 4. Hyperlipidemia She should continue risk factor evaluation and care. However, she states she has adverse reaction to statins and thus cannot tolerate statins as a lipid- lowering agent. Comment: The patient's case has been previously discussed with patient, her family members present, and Dr. Silverio. This note was generated with [email or web address] dictation software. It may contain incorrect words, spelling, and punctuation that were not noted in checking the note before signing.
[2017-11-15 16:31] LABS: Partial Thromboplast Time 50.1 Seconds (24.1-36.2)
[2017-11-15 17:21] LABS: Erythrocyte Sedimentation Rate 80 mm/hr (0-30)
[2017-11-15] MEDS: Ondansetron 4 MG/2 ML Vial IV (17:54)
[2017-11-15] MEDS: Heparin Injection 5,000 UNITS/ML Syringe IV (18:02)
[2017-11-15] MEDS: Aspirin 81 MG TAB.CHEW PO (22:11)
[2017-11-15 23:32] LABS: Partial Thromboplast Time 67.6 Seconds (24.1-36.2)
[2017-11-16] VITALS (9 sets, daily range): BP systolic 108–123; BP diastolic 65–77; PULSE 90–104; RESP 16–18; TEMP 36.6–37.3; O2SAT 94–97
[2017-11-16] MEDS: Ondansetron 4 MG/2 ML Vial IV ×2 (02:37→10:20)
[2017-11-16] MEDS: 0.9% NaCl Peripheral Flush Adult/Peds IV ×2 (02:37→10:23)
[2017-11-16] MEDS: Ipratropium Bromide 0.06% NASAL SPRAY 2 SPRAY NASAL ×2 (05:23→15:25)
[2017-11-16] MEDS: Levothyroxine 125 MCG Tablet 62.5 MCG PO (05:24)
[2017-11-16 05:39] LABS: Partial Thromboplast Time 66.6 Seconds (24.1-36.2)
[2017-11-16 05:58] LABS: Anion Gap 9 (5-15); BUN 5 mg/dL (7-18); BUN/Creat Ratio 10.3 RATIO (10-20); Calcium,Total 8.5 mg/dL (8.5-10.1); Chloride 102 mmol/L (98-107); Creatinine, Serum 0.48 mg/dL (0.55-1.02); EST Glomerular Filtration Rate 138 mL/min (>60); Est Glom Filt Rate - Afr Amer 167 mL/min (>60); Estimated Creatinine Clearance 109.35 ml/min; Glucose 106 mg/dL (74-106); Potassium 3.7 mmol/L (3.5-5.1); Sodium Level 139 mmol/L (136-145)
[2017-11-16] MEDS: Acetaminophen 325 MG Tablet 650 MG PO ×2 (05:59→12:48)
[2017-11-16 06:42] LABS: Absolute Neutrophil Count 12.5 X10^3/uL (2.0-7.7); Basophil# 0.03 X10^3/uL; Basophil% 0.2 % (0-1); Eosinophil# 0.34 X10^3/uL; Eosinophils% 2.2 % (0-5); Hemoglobin 11.3 g/dl (12.0-15.0); Lymphocyte % 8.4 % (19-41); Mean Corp Hgb Conc 32.3 g/gl (32-36); Mean Corpuscular Hgb 29.2 pg (27.0-32.0); Mean Corpuscular Volume 90.4 fL (81-99); Mean Platelet Vol. 8.3 fl (6.2-12.0); Monocyte# 1.23 X10^3/uL; Monocyte% 7.9 % (0-10); Neutrophil # 12.52 X10^3/uL (2.7-7.7); Neutrophil % 80.5 % (47-70); RBC Distribution Width CV 13.4 % (11.6-14.6); RBC Distribution Width SD 44.1 fl (35.1-43.9); Red Blood Count 3.87 M/mm3 (4.2-5.4); White Blood Count 15.5 K/mm3 (4.4-11.0)
[2017-11-16 06:46] LABS: POSITIVE COUNT YES; POSITIVE DIFFERENTIAL NO; POSITIVE MORPHOLOGY NO; Platelet Count 799 K/mm3 (150-450)
[2017-11-16 06:47] LABS: Differential Indicated SCAN CRITERIA MET
[2017-11-16 07:05] LABS: Differential Comment SCANNED; Platelet Estimate MKD INC (ADEQ)
[2017-11-16] MEDS: DEXLANSOPRAZOLE 60 MG PO (07:34)
--- NOTE | 2017-11-16 09:00 | PCM.CONS.GEN ---
Problem List (1) Temporal arteritis Status: Suspected (2) HLD (hyperlipidemia) Status: Chronic Qualifiers: Hyperlipidemia type: unspecified Qualified Code(s): E78.5 - Hyperlipidemia, unspecified (3) GERD (gastroesophageal reflux disease) Status: Chronic Qualifiers: Esophagitis presence: esophagitis presence not specified Qualified Code(s): K21.9 - Gastro-esophageal reflux disease without esophagitis (4) Allergic rhinitis Status: Chronic Qualifiers: Allergic rhinitis trigger: unspecified Allergic rhinitis seasonality: unspecified seasonality Qualified Code(s): J30.9 - Allergic rhinitis, unspecified (5) NSTEMI (non-ST elevated myocardial infarction) Status: Acute (6) Atrial fibrillation with RVR Status: Acute (7) Hypothyroidism Status: Chronic Qualifiers: Hypothyroidism type: unspecified Qualified Code(s): E03.9 - Hypothyroidism, unspecified (8) Hypertension Status: Chronic Qualifiers: Hypertension type: unspecified Qualified Code(s): I10 - Essential (primary) hypertension (9) Myalgia Status: Chronic (10) Family history of temporal arteritis Status: Chronic (11) Jaw claudication Status: Chronic Reason for Consult Date of Consultation: 11/16/17 Reason for Consultation: Abnormal chest CT, chronic cough History of Present Illness: The patient is a 62 year old F with a past medical history as below, presented to the ED on 11/14/17 with complaints of palpitations and chest tightness. The patient has been experiencing myalgias and jaw claudication, undergoing recent workup for temporal arteritis with bilateral TA biopsies. Initial vital signs BP 122/90, pulse 167, RR 18, 97.2?F, and 98% on room air. EKG with A. fib RVR. The patient was given 6 mg of adenosine with no change. She was given 20 mg of Cardizem with brief improvement in her heart rate, then given additional 20 mg of Cardizem and started on a drip. She converted to sinus rhythm in the ER. Cardiology was consulted and patient was transferred to the progressive care unit for further evaluation. The patient was admitted to [facility] on 10/27 through 10/28 with elevated troponins. She had a diagnostic cardiac catheterization which showed normal coronary arteries, normal LV size, wall motion, and systolic function. Ejection fraction was 60%. Demand ischemia was suspected for cause of SVT. Initial blood work this admission showed leukocytosis of 13,700, elevated platelet count at 860, INR 1.1 with PTT 68.4. Initial troponin elevated at 3.76, with trending down thereafter. TSH was normal at 2.44. A CRP was elevated at 127 and rheumatoid factor 49.0. Immunology workup is pending. Chest x-ray showing possible COPD, nothing acute. There was some basilar mild interstitial thickening, right greater than left. CTA of the chest was obtained to rule out PE, which was negative for PE or dissection. Left aortic arch with aberrant right subclavian artery, bibasilar infiltrates/atelectasis and diffuse mild bilateral pulmonary interstitial thickening. There was a 1.5 cm nodule posteriorly in the left breast and a small nodular density in the right breast seen, mammogram/ultrasound was recommended. Also small 3.5 mm noncalcified nodular density peripherally in the right upper lobe, likely benign. Osteopenia was present with thoracolumbar spondylosis. A right wrist x-ray showed degenerative changes. Echocardiogram on 11/15 showed an estimated EF of 70%, normal LV systolic function, mild diffuse MV thickening, trivial MVI, TBI, SHELLY, and PVI. RVSP and diastolic dysfunction not estimated. Patient denied any history of palpitations. She denies any shortness of breath except when bending over at the waist. She denies any current chest pain or palpitations. She did have some palpitations yesterday, but none this morning. She has had a dry hacking cough since July 2017 and always feels that her nose is stuffy. She does have some thick yellow sputum production in the mornings, otherwise cough is typically nonproductive. She complains of hand and toe deformities, chronic achiness and myalgias, hearing loss bilaterally right greater than left, and headaches. Her appetite is poor. She feels weak. Patient does have some pain along her jawline. She also complains of chronic neck, shoulder, hip, and knee pain. She gets her knees injected about every 6 months and sometimes requires drainage of knee effusions. Patient notes she had a period of time between January and May 2017 with severe dizziness and had a full neurological and ENT workup. She saw Dr. Recio who reportedly informed her it was an inner ear issue since all other testing was negative. Patient denies any history of cancer. Her father did have prostate and lung cancer, he was a smoker. The patient reports she is a lifelong non-smoker. She denies any significant smoke exposure, no occupational or environmental exposures as well. She has never been on any immunosuppressant therapy. She originally saw a counter manager in her early 30s who thought she had lupus, which was apparently ruled out. She was told she had arthritis and followed inconsistently for the next 20 years. The patient last saw a counter manager 10 years ago and was on Plaquenil for about 1 year. It did not make a difference so that was discontinued. The patient has an appointment with a counter manager in [place] in a couple of weeks. She has never had any known abnormal lung findings on imaging. She has not followed with a pipe stem aligner in the past. Past Medical History Past Medical History (Chronic Problems): Chronic Problems HLD (hyperlipidemia) (Chronic) GERD (gastroesophageal reflux disease) (Chronic) Allergic rhinitis (Chronic) Rhinosinusitis (Chronic) Hypothyroidism (Chronic) Hypertension (Chronic) Myalgia (Chronic) Family history of temporal arteritis (Chronic) Jaw claudication (Chronic) Allergies etodolac Allergy (Verified 11/14/17 06:16) Unknown hydroxychloroquine [From Plaquenil] Allergy (Verified 11/14/17 06:16) Rash Sulfa (Sulfonamide Antibiotics) Allergy (Verified 11/14/17 06:16) Hives tramadol Allergy (Verified 11/14/17 06:16) Unknown lisinopril Adverse Reaction (Verified 11/14/17 06:16) dizziness metoprolol Adverse Reaction (Verified 11/14/17 06:16) Other Proton Pump Inhibitors Adverse Reaction (Verified 11/14/17 06:16) Other Ceqowib-Guk-Afc Reductase Inhibitor Adverse Reaction (Verified 11/14/17 06:16) dizziness verapamil Adverse Reaction (Verified 11/14/17 06:16) Other Home Medications: Ambulatory Orders Medication Instructions Recorded Amlodipine [Norvasc] 2.5 mg PO QHS 10/27/17 Ascorbic Acid [Vitamin C] 500 mg PO DAILY@0800 10/27/17 Aspirin 81 mg PO QHS 10/27/17 Cholecalciferol (Vitamin D3) 2,000 unit PO DAILY 10/27/17 [Vitamin D3] Dexlansoprazole [Dexilant] 60 mg PO DAILY 10/27/17 Levothyroxine Sodium [Synthroid] 62.5 mcg PO DAILY 10/27/17 [place]-3 Fatty Acids/Fish Oil 1,200 mg PO DAILY 10/27/17 [[place] 3 1,000 mg Softgel] Fluticasone 0.05% [Flonase Nasal 1 spray NASAL BID 11/14/17 [place]] Surgical History: hysterectomy, tonsillectomy, - - Ligation, right carpal tunnel surgery, thyroglossal duct cyst removal, foot surgery Psychiatric History: No pertinent psych hx PROJECT PLANNER History: No pertinent PROJECT PLANNER history Lives: Spouse/ Significant Other Smoking Status: Never smoker Tobacco Use: Non-smoker Alcohol: None Drugs: None - *Family History Maternal History Items: Heart Disease - at 41 from CHF Paternal History Items: Cancer - Lung cancer, prostate cancer Review of Systems Constitutional: Reports: Anorexia, Malaise, Weakness, Weight Change, Fatigue. Denies: Chills, Fever, Night Sweats Eyes: Denies: Blurred vision, Double vision, Vision Change HEENT: Reports: Difficulty Hearing, Nasal Congestion. Denies: Difficulty Swallowing Cardiovascular: Reports: Claudication - Jaw, Light Headedness - Occasionally, Palpitations. Denies: Chest Tightness, Edema, Orthopnea, Paroxysmal Noc. Dyspnea, Syncope Respiratory: Reports: Cough, Shortness of breath upon exertion - Upon bending over or heavy exertion, Sputum production - In the mornings. Denies: Hemoptysis, Shortness of breath at rest, Wheezing Gastrointestinal: Reports: Nausea. Denies: Abdominal Pain, Constipation, Diarrhea, Dyspepsia, Hematemesis, Hematochezia, Melena, Vomiting Genitourinary: Denies: Dysuria, Frequency, Hematuria, Nocturia, Retention Gynecological: Denies: Breast symptoms Musculoskeletal: Reports: Joint Pain, Joint stiffness, Joint swelling, Joint Tenderness, Muscle pain, Neck Pain, Shoulder Pain, - - No calf pain Skin: Denies: Rash, Wounds Neurological: Reports: - - Chronic numbness and tingling to bilateral feet and hands (L>R). Denies: Balance problems, Change in Speech, Confusion, Difficulty swallowing, Focal weakness, Tremor, Seizures Psychiatric: Denies: Anxiety, Depression Endocrine: Denies: Change in Body Habitus, Polydipsia, Polyuria Hematologic/ Lymphatic: Reports: Anemia, Easy Bruising. Denies: Adenopathy, Easy Bleeding, Hx of blood clot Patient Problems: Active and Suspected Problems Temporal arteritis (Suspected) NSTEMI (non-ST elevated myocardial infarction) (Acute) Atrial fibrillation with RVR (Acute) Subjective: The patient was seen and examined. She denies any current palpitations or chest pain. She denies any shortness of breath. She is fatigued. Complains of tenderness to her bilateral jaw and temporal artery area. She is maintaining appropriate saturations on room air. Objective: Clinical Impression(s) from Imaging Studies Chest X-Ray 11/14/17 06:16 IMPRESSION: Stable-appearing chest. No acute abnormality noted. Possible COPD. Electronically Signed: Kiet Bender MD at 6:52 EDT Tel , Service support , Chest CTA 11/14/17 07:24 IMPRESSION: 1. Normal CTA chest examination, without a demonstrated pulmonary embolism or arterial dissection. 2. 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 3. Bibasilar infiltrates/atelectasis and diffuse mild bilateral pulmonary interstitial thickening demonstrated. 4. A 1.5 cm nodule posteriorly in the left breast and a small nodular density in the right breast seen, further evaluation with a diagnostic mammogram/ultrasound exam is recommended. 5. Osteopenia. Multilevel degenerative thoracolumbar spondylosis. Electronically Signed: Kiet Bender MD at 8:34 EDT Tel , Service support , Wrist X-Ray 11/14/17 17:22 IMPRESSION: Degenerative changes. Chondrocalcinosis. Electronically Signed: Xiomy Price MD at 18:23 EDT Tel , Service support , - Physical Exam General: Alert, Oriented x3, Cooperative, No apparent distress, Well developed HEENT: Atraumatic, PERRLA, Normocephalic Oral: Moist Mucosa, No Gingival or Mucosal Lesions/ Ulcerations Neck: Supple, No JVD, No Nodes, Trachea Midline Lungs: No rhonchi, No wheeze, No rales, Diminished, - - Symmetric expansion, no dullness to percussion. Cardiovascular: Regular rate, Regular Rhythm, Normal S1, Normal S2, No murmurs, No rub noted, No Gallop Abdomen: Bowel Sounds Present, Soft, Non Tender, Non-Distended, Passing Flatus Extremities: No clubbing, No cyanosis, No edema Musculoskeletal: No Muscle Wasting, Arthritic Changes, Tenderness - Temporal artery area, right jaw. Generalized myalgias, - - Finger and toe deformities bilaterally Lymphatic: No Cervical, Supraclavicular, or Inguinal Adenopathy Neurological: Cranial nerves II-XII grossly intact, Deep Tendon Reflexes 2+/4 and Symmetrical, Neuro grossly intact, Motor Exam 5/5 strength throughout Psych/Mental Status: Alert and oriented to time, place, person, mood and affect Vital Signs Temp Pulse Resp BP Pulse Ox 99.0 F 97 18 108/66 96 11/16/17 04:15 11/16/17 07:48 11/16/17 04:15 11/16/17 04:15 11/16/17 04:15 Oxygen Flow Rate (L/min) 2 Oxygen Delivery Method Room Air Weight: 133 lb 13.129 oz Body Mass Index (BMI) 22.6 Intake and Output for Last 24 Hours 11/14/17 11/15/17 11/16/17 23:59 23:59 23:59 Intake Total 2251 / 2251 2798 / 2798 1407 / 1407 Output Total 1100 / 1100 1550 / 1550 Balance 1151 / 1151 1248 / 1248 1407 / 1407 Laboratory Tests Past 24 Hrs 11/15/17 11/15/17 11/15/17 06:57 08:20 08:20 WBC RBC Hgb Hct MCV MCH MCHC RDW RDW Differential Plt Count MPV Immature Gran % (Auto) Neut % (Auto) Lymph % (Auto) [place] % (Auto) Eos % (Auto) Baso % (Auto) Absolute Neuts (auto) Absolute Lymphs (auto) Total Counted Differential Comment Diff Path Review Platelet Estimate ESR 80 H APTT 64.8 H Sodium Potassium Chloride Carbon Dioxide Anion Gap BUN Creatinine Estim Creat Clear Calc Est GFR (MDRD) Af Amer Est GFR (MDRD) Non-Af BUN/Creatinine Ratio Glucose Calcium C-React Prot Ext Range 127.00 H Rheumatoid Factor 49.0 H Cycl Citrul Peptide IgG SHADIA Screen MARVIN-1 Antibody SS-A/Ro IgG Antibody SS-B/La IgG Antibody Sm (Fisher) Antibody LIMNOLOGY TEACHER Antibody Scl-70 Scleroderma Ab Double Strand DNA Ab Centromere B Antibody Complement C3 Complement C4 Tot Complement (CH50) HLA-B27 11/15/17 11/15/17 11/16/17 15:22 23:10 05:05 WBC 15.5 H RBC 3.87 L Hgb 11.3 L Hct 35.0 L MCV 90.4 MCH 29.2 MCHC 32.3 RDW 13.4 RDW Differential 44.1 H Plt Count 799 H* MPV 8.3 Immature Gran % (Auto) 0.800 Neut % (Auto) 80.5 H Lymph % (Auto) 8.4 L [place] % (Auto) 7.9 Eos % (Auto) 2.2 Baso % (Auto) 0.2 Absolute Neuts (auto) 12.5 H Absolute Lymphs (auto) 1.30 Total Counted Not Reportable Differential Comment SCANNED Diff Path Review May foll Platelet Estimate MKD INC ESR APTT 50.1 H 67.6 H Sodium Potassium Chloride Carbon Dioxide Anion Gap BUN Creatinine Estim Creat Clear Calc Est GFR (MDRD) Af Amer Est GFR (MDRD) Non-Af BUN/Creatinine Ratio Glucose Calcium C-React Prot Ext Range Rheumatoid Factor Cycl Citrul Peptide IgG SHADIA Screen MARVIN-1 Antibody SS-A/Ro IgG Antibody SS-B/La IgG Antibody Sm (Fisher) Antibody LIMNOLOGY TEACHER Antibody Scl-70 Scleroderma Ab Double Strand DNA Ab Centromere B Antibody Complement C3 Complement C4 Tot Complement (CH50) HLA-B27 11/16/17 11/16/17 11/16/17 05:05 05:05 05:05 WBC RBC Hgb Hct MCV MCH MCHC RDW RDW Differential Plt Count MPV Immature Gran % (Auto) Neut % (Auto) Lymph % (Auto) [place] % (Auto) Eos % (Auto) Baso % (Auto) Absolute Neuts (auto) Absolute Lymphs (auto) Total Counted Differential Comment Diff Path Review Platelet Estimate ESR APTT Sodium 139 Potassium 3.7 Chloride 102 Carbon Dioxide 28.0 Anion Gap 9 BUN 5 L Creatinine 0.48 L Estim Creat Clear Calc 109.35 Est GFR (MDRD) Af Amer 167 Est GFR (MDRD) Non-Af 138 BUN/Creatinine Ratio 10.3 Glucose 106 Calcium 8.5 C-React Prot Ext Range Rheumatoid Factor Cycl Citrul Peptide IgG Pending SHADIA Screen Pending MARVIN-1 Antibody Pending SS-A/Ro IgG Antibody Pending SS-B/La IgG Antibody Pending Sm (Fisher) Antibody Pending LIMNOLOGY TEACHER Antibody Pending Scl-70 Scleroderma Ab Pending Double Strand DNA Ab Pending Centromere B Antibody Pending Complement C3 Pending Complement C4 Pending Tot Complement (CH50) Pending HLA-B27 Pending 11/16/17 05:05 WBC RBC Hgb Hct MCV MCH MCHC RDW RDW Differential Plt Count MPV Immature Gran % (Auto) Neut % (Auto) Lymph % (Auto) [place] % (Auto) Eos % (Auto) Baso % (Auto) Absolute Neuts (auto) Absolute Lymphs (auto) Total Counted Differential Comment Diff Path Review Platelet Estimate ESR APTT 66.6 H Sodium Potassium Chloride Carbon Dioxide Anion Gap BUN Creatinine Estim Creat Clear Calc Est GFR (MDRD) Af Amer Est GFR (MDRD) Non-Af BUN/Creatinine Ratio Glucose Calcium C-React Prot Ext Range Rheumatoid Factor Cycl Citrul Peptide IgG SHADIA Screen MARVIN-1 Antibody SS-A/Ro IgG Antibody SS-B/La IgG Antibody Sm (Fisher) Antibody LIMNOLOGY TEACHER Antibody Scl-70 Scleroderma Ab Double Strand DNA Ab Centromere B Antibody Complement C3 Complement C4 Tot Complement (CH50) HLA-B27 Assessment/Plan Active and Suspected Problems Temporal arteritis (Suspected) NSTEMI (non-ST elevated myocardial infarction) (Acute) Atrial fibrillation with RVR (Acute) RECOMMENDATIONS 1. Wean oxygen supplementation to keep saturations 90% or above 2. Encourage incentive spirometer and increase activity as tolerated 3. Await immunology/CCP workup 4. Ambulatory pulse oximetry prior to discharge 5. Arrhythmia/rate control per cardiology recommendations 6. Follow up as outpatient in pulmonary clinic IMPRESSIONS 1. Abnormal chest imaging/interstitial disease CTA of the chest read as bibasilar infiltrate/atelectasis. No fevers but has leukocytosis. No culture data to review. Patient does have a cough that has been persistent since July, typically nonproductive except for the mornings. No increase in sputum production. No significant shortness of breath except with bending over. She did have a recent left heart catheterization, so pulmonary artery pressures were not assessed. Her echocardiogram also did not have pulmonary pressures assessed. Her ejection fraction is 70%. Patient does have multiple symptoms concerning for polymyalgia rheumatica. Awaiting her temporal artery biopsy results and immunology workup. Reports was told she originally had lupus in her 30s, and was told she has osteoarthritis and has only been treated with Plaquenil in the past. If she does in fact have rheumatoid, may be etiology of her interstitial lung disease. She did have a lung nodule that would be consistent with this diagnosis as well. Patient should have an ambulatory pulse ox prior to discharge to assess for exertional hypoxemia. Encourage incentive spirometer and increase activity as tolerated. She can follow-up in pulmonary clinic in 2 weeks with CHOIR MEMBER, which time any necessary testing can be ordered. She may require a right heart catheterization in the future to assess her pulmonary artery pressures. 2. Atrial fibrillation with RVR/NSTEMI Resolved. Likely demand ischemia in the setting of heart rate in the 170s-180s with AF RVR. Patient currently maintained on oral Cardizem. She has been maintaining a sinus rhythm with occasional bursts of non-sustained A. fib. She has an intolerance to beta blockers and MIRIAN inhibitors. Cardiology is following. 3. Hypothyroidism/hypertension/family history of temporal arteritis/hyperlipidemia/GERD/allergic rhinitis Complicates care, management, recovery, and prognosis. Currently undergoing workup with recent temporal artery biopsies bilaterally. She is to follow-up with a counter manager in [place], Dr. Mena, in a few weeks. Patient currently switched from Flonase to Atrovent with minimal improvement in her nasal stuffiness. Unsure of etiology of hearing loss. Thank you for the opportunity to participate in this patient's care, please do not hesitate to contact us with any further questions or concerns. This note was generated with [employer] dictation software. It may contain incorrect words, spelling, and punctuation that were not noted in checking the note before signing.
--- NOTE | 2017-11-16 09:33 | CON.PCM_ITS ---
Problem List (1) Temporal arteritis Status: Suspected (2) HLD (hyperlipidemia) Status: Chronic Qualifiers: Hyperlipidemia type: unspecified Qualified Code(s): E78.5 - Hyperlipidemia , unspecified (3) GERD (gastroesophageal reflux disease) Status: Chronic Qualifiers: Esophagitis presence: esophagitis presence not specified Qualified Code(s) : K21.9 - Gastro-esophageal reflux disease without esophagitis (4) Allergic rhinitis Status: Chronic Qualifiers: Allergic rhinitis trigger: unspecified Allergic rhinitis seasonality: unspecified seasonality Qualified Code(s): J30.9 - Allergic rhinitis, unspecified (5) NSTEMI (non-ST elevated myocardial infarction) Status: Acute (6) Atrial fibrillation with RVR Status: Acute (7) Hypothyroidism Status: Chronic Qualifiers: Hypothyroidism type: unspecified Qualified Code(s): E03.9 - Hypothyroidism , unspecified (8) Hypertension Status: Chronic Qualifiers: Hypertension type: unspecified Qualified Code(s): I10 - Essential (primary ) hypertension (9) Myalgia Status: Chronic (10) Family history of temporal arteritis Status: Chronic (11) Jaw claudication Status: Chronic Reason for Consult Date of Consultation: 11/16/17 Reason for Consultation: Abnormal chest CT, chronic cough History of Present Illness: The patient is a 62 year old F with a past medical history as below, presented to the ED on 11/14/17 with complaints of palpitations and chest tightness. The patient has been experiencing myalgias and jaw claudication, undergoing recent workup for temporal arteritis with bilateral TA biopsies. Initial vital signs BP 122/90, pulse 167, RR 18, 97.2?F, and 98% on room air. EKG with A. fib RVR. The patient was given 6 mg of adenosine with no change. She was given 20 mg of Cardizem with brief improvement in her heart rate, then given additional 20 mg of Cardizem and started on a drip. She converted to sinus rhythm in the ER. Cardiology was consulted and patient was transferred to the progressive care unit for further evaluation. The patient was admitted to [facility] on 10/27 through 10/28 with elevated troponins. She had a diagnostic cardiac catheterization which showed normal coronary arteries, normal LV size, wall motion, and systolic function. Ejection fraction was 60%. Demand ischemia was suspected for cause of SVT. Initial blood work this admission showed leukocytosis of 13,700, elevated platelet count at 860, INR 1.1 with PTT 68.4. Initial troponin elevated at 3.76, with trending down thereafter. TSH was normal at 2.44. A CRP was elevated at 127 and rheumatoid factor 49.0. Immunology workup is pending. Chest x-ray showing possible COPD, nothing acute. There was some basilar mild interstitial thickening, right greater than left. CTA of the chest was obtained to rule out PE, which was negative for PE or dissection. Left aortic arch with aberrant right subclavian artery, bibasilar infiltrates/atelectasis and diffuse mild bilateral pulmonary interstitial thickening. There was a 1.5 cm nodule posteriorly in the left breast and a small nodular density in the right breast seen, mammogram/ultrasound was recommended. Also small 3.5 mm noncalcified nodular density peripherally in the right upper lobe, likely benign. Osteopenia was present with thoracolumbar spondylosis. A right wrist x-ray showed degenerative changes. Echocardiogram on 11/15 showed an estimated EF of 70%, normal LV systolic function, mild diffuse MV thickening, trivial MVI, TBI, SHELLY, and PVI. RVSP and diastolic dysfunction not estimated. Patient denied any history of palpitations. She denies any shortness of breath except when bending over at the waist. She denies any current chest pain or palpitations. She did have some palpitations yesterday, but none this morning. She has had a dry hacking cough since July 2017 and always feels that her nose is stuffy. She does have some thick yellow sputum production in the mornings, otherwise cough is typically nonproductive. She complains of hand and toe deformities, chronic achiness and myalgias, hearing loss bilaterally right greater than left, and headaches. Her appetite is poor. She feels weak. Patient does have some pain along her jawline. She also complains of chronic neck, shoulder, hip, and knee pain. She gets her knees injected about every 6 months and sometimes requires drainage of knee effusions. Patient notes she had a period of time between January and May 2017 with severe dizziness and had a full neurological and ENT workup. She saw Dr. Recio who reportedly informed her it was an inner ear issue since all other testing was negative. Patient denies any history of cancer. Her father did have prostate and lung cancer, he was a smoker. The patient reports she is a lifelong non-smoker. She denies any significant smoke exposure, no occupational or environmental exposures as well. She has never been on any immunosuppressant therapy. She originally saw a steam pan sponger in her early 30s who thought she had lupus, which was apparently ruled out. She was told she had arthritis and followed inconsistently for the next 20 years. The patient last saw a steam pan sponger 10 years ago and was on Plaquenil for about 1 year. It did not make a difference so that was discontinued. The patient has an appointment with a steam pan sponger in [place] in a couple of weeks. She has never had any known abnormal lung findings on imaging. She has not followed with a a p manager in the past. Past Medical History Past Medical History (Chronic Problems): Chronic Problems HLD (hyperlipidemia) (Chronic) GERD (gastroesophageal reflux disease) (Chronic) Allergic rhinitis (Chronic) Rhinosinusitis (Chronic) Hypothyroidism (Chronic) Hypertension (Chronic) Myalgia (Chronic) Family history of temporal arteritis (Chronic) Jaw claudication (Chronic) Allergies etodolac Allergy (Verified 11/14/17 06:16) Unknown hydroxychloroquine [From Plaquenil] Allergy (Verified 11/14/17 06:16) Rash Sulfa (Sulfonamide Antibiotics) Allergy (Verified 11/14/17 06:16) Hives tramadol Allergy (Verified 11/14/17 06:16) Unknown lisinopril Adverse Reaction (Verified 11/14/17 06:16) dizziness metoprolol Adverse Reaction (Verified 11/14/17 06:16) Other Proton Pump Inhibitors Adverse Reaction (Verified 11/14/17 06:16) Other Yaofutb-Duw-Urx Reductase Inhibitor Adverse Reaction (Verified 11/14/17 06:16) dizziness verapamil Adverse Reaction (Verified 11/14/17 06:16) Other Home Medications: Ambulatory Orders Medication Instructions Recorded Amlodipine [Norvasc] 2.5 mg PO QHS 10/27/17 Ascorbic Acid [Vitamin C] 500 mg PO DAILY@0800 10/27/17 Aspirin 81 mg PO QHS 10/27/17 Cholecalciferol (Vitamin D3) 2,000 unit PO DAILY 10/27/17 [Vitamin D3] Dexlansoprazole [Dexilant] 60 mg PO DAILY 10/27/17 Levothyroxine Sodium [Synthroid] 62.5 mcg PO DAILY 10/27/17 Orange-3 Fatty Acids/Fish Oil 1,200 mg PO DAILY 10/27/17 [Orange 3 1,000 mg Softgel] Fluticasone 0.05% [Flonase Nasal 1 spray NASAL BID 11/14/17 [place]] Surgical History: hysterectomy, tonsillectomy, - - Ligation, right carpal tunnel surgery, thyroglossal duct cyst removal, foot surgery Psychiatric History: No pertinent psych hx COLLEGE RECRUITER History: No pertinent COLLEGE RECRUITER history Lives: Spouse/ Significant Other Smoking Status: Never smoker Tobacco Use: Non-smoker Alcohol: None Drugs: None - *Family History Maternal History Items: Heart Disease - at 41 from CHF Paternal History Items: Cancer - Lung cancer, prostate cancer Review of Systems Constitutional: Reports: Anorexia, Malaise, Weakness, Weight Change, Fatigue. Denies: Chills, Fever, Night Sweats Eyes: Denies: Blurred vision, Double vision, Vision Change HEENT: Reports: Difficulty Hearing, Nasal Congestion. Denies: Difficulty Swallowing Cardiovascular: Reports: Claudication - Jaw, Light Headedness - Occasionally, Palpitations. Denies: Chest Tightness, Edema, Orthopnea, Paroxysmal Noc. Dyspnea, Syncope Respiratory: Reports: Cough, Shortness of breath upon exertion - Upon bending over or heavy exertion, Sputum production - In the mornings. Denies: Hemoptysis , Shortness of breath at rest, Wheezing Gastrointestinal: Reports: Nausea. Denies: Abdominal Pain, Constipation, Diarrhea, Dyspepsia, Hematemesis, Hematochezia, Melena, Vomiting Genitourinary: Denies: Dysuria, Frequency, Hematuria, Nocturia, Retention Gynecological: Denies: Breast symptoms Musculoskeletal: Reports: Joint Pain, Joint stiffness, Joint swelling, Joint Tenderness, Muscle pain, Neck Pain, Shoulder Pain, - - No calf pain Skin: Denies: Rash, Wounds Neurological: Reports: - - Chronic numbness and tingling to bilateral feet and hands (L>R). Denies: Balance problems, Change in Speech, Confusion, Difficulty swallowing, Focal weakness, Tremor, Seizures Psychiatric: Denies: Anxiety, Depression Endocrine: Denies: Change in Body Habitus, Polydipsia, Polyuria Hematologic/ Lymphatic: Reports: Anemia, Easy Bruising. Denies: Adenopathy, Easy Bleeding, Hx of blood clot Patient Problems: Active and Suspected Problems Temporal arteritis (Suspected) NSTEMI (non-ST elevated myocardial infarction) (Acute) Atrial fibrillation with RVR (Acute) Subjective: The patient was seen and examined. She denies any current palpitations or chest pain. She denies any shortness of breath. She is fatigued. Complains of tenderness to her bilateral jaw and temporal artery area. She is maintaining appropriate saturations on room air. Objective: Clinical Impression(s) from Imaging Studies Chest X-Ray 11/14/17 06:16 IMPRESSION: Stable-appearing chest. No acute abnormality noted. Possible COPD. Electronically Signed: Kiet Bender MD at 6:52 EDT Tel , Service support , Chest CTA 11/14/17 07:24 IMPRESSION: 1. Normal CTA chest examination, without a demonstrated pulmonary embolism or arterial dissection. 2. 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 3. Bibasilar infiltrates/atelectasis and diffuse mild bilateral pulmonary interstitial thickening demonstrated. 4. A 1.5 cm nodule posteriorly in the left breast and a small nodular density in the right breast seen, further evaluation with a diagnostic mammogram/ultrasound exam is recommended. 5. Osteopenia. Multilevel degenerative thoracolumbar spondylosis. Electronically Signed: Kiet Bender MD at 8:34 EDT Tel , Service support , Wrist X-Ray 11/14/17 17:22 IMPRESSION: Degenerative changes. Chondrocalcinosis. Electronically Signed: Xiomy Price MD at 18:23 EDT Tel , Service support , - Physical Exam General: Alert, Oriented x3, Cooperative, No apparent distress, Well developed HEENT: Atraumatic, PERRLA, Normocephalic Oral: Moist Mucosa, No Gingival or Mucosal Lesions/ Ulcerations Neck: Supple, No JVD, No Nodes, Trachea Midline Lungs: No rhonchi, No wheeze, No rales, Diminished, - - Symmetric expansion, no dullness to percussion. Cardiovascular: Regular rate, Regular Rhythm, Normal S1, Normal S2, No murmurs, No rub noted, No Gallop Abdomen: Bowel Sounds Present, Soft, Non Tender, Non-Distended, Passing Flatus Extremities: No clubbing, No cyanosis, No edema Musculoskeletal: No Muscle Wasting, Arthritic Changes, Tenderness - Temporal artery area, right jaw. Generalized myalgias, - - Finger and toe deformities bilaterally Lymphatic: No Cervical, Supraclavicular, or Inguinal Adenopathy Neurological: Cranial nerves II-XII grossly intact, Deep Tendon Reflexes 2+/4 and Symmetrical, Neuro grossly intact, Motor Exam 5/5 strength throughout Psych/Mental Status: Alert and oriented to time, place, person, mood and affect Vital Signs Temp Pulse Resp BP Pulse Ox 99.0 F 97 18 108/66 96 11/16/17 04:15 11/16/17 07:48 11/16/17 04:15 11/16/17 04:15 11/16/17 04:15 Oxygen Flow Rate (L/min) 2 Oxygen Delivery Method Room Air Weight: 133 lb 13.129 oz Body Mass Index (BMI) 22.6 Intake and Output for Last 24 Hours 11/14/17 11/15/17 11/16/17 23:59 23:59 23:59 Intake Total 2251 / 2251 2798 / 2798 1407 / 1407 Output Total 1100 / 1100 1550 / 1550 Balance 1151 / 1151 1248 / 1248 1407 / 1407 Laboratory Tests Past 24 Hrs 11/15/17 11/15/17 11/15/17 06:57 08:20 08:20 WBC RBC Hgb Hct MCV MCH MCHC RDW RDW Differential Plt Count MPV Immature Gran % (Auto) Neut % (Auto) Lymph % (Auto) [place] % (Auto) Eos % (Auto) Baso % (Auto) Absolute Neuts (auto) Absolute Lymphs (auto) Total Counted Differential Comment Diff Path Review Platelet Estimate ESR 80 H APTT 64.8 H Sodium Potassium Chloride Carbon Dioxide Anion Gap BUN Creatinine Estim Creat Clear Calc Est GFR (MDRD) Af Amer Est GFR (MDRD) Non-Af BUN/Creatinine Ratio Glucose Calcium C-React Prot Ext Range 127.00 H Rheumatoid Factor 49.0 H Cycl Citrul Peptide IgG SHADIA Screen MARVIN-1 Antibody SS-A/Ro IgG Antibody SS-B/La IgG Antibody Sm (Fisher) Antibody CRIMPING MACHINE OPERATOR Antibody Scl-70 Scleroderma Ab Double Strand DNA Ab Centromere B Antibody Complement C3 Complement C4 Tot Complement (CH50) HLA-B27 11/15/17 11/15/17 11/16/17 15:22 23:10 05:05 WBC 15.5 H RBC 3.87 L Hgb 11.3 L Hct 35.0 L MCV 90.4 MCH 29.2 MCHC 32.3 RDW 13.4 RDW Differential 44.1 H Plt Count 799 H* MPV 8.3 Immature Gran % (Auto) 0.800 Neut % (Auto) 80.5 H Lymph % (Auto) 8.4 L [place] % (Auto) 7.9 Eos % (Auto) 2.2 Baso % (Auto) 0.2 Absolute Neuts (auto) 12.5 H Absolute Lymphs (auto) 1.30 Total Counted Not Reportable Differential Comment SCANNED Diff Path Review May foll Platelet Estimate MKD INC ESR APTT 50.1 H 67.6 H Sodium Potassium Chloride Carbon Dioxide Anion Gap BUN Creatinine Estim Creat Clear Calc Est GFR (MDRD) Af Amer Est GFR (MDRD) Non-Af BUN/Creatinine Ratio Glucose Calcium C-React Prot Ext Range Rheumatoid Factor Cycl Citrul Peptide IgG SHADIA Screen MARVIN-1 Antibody SS-A/Ro IgG Antibody SS-B/La IgG Antibody Sm (Fisher) Antibody CRIMPING MACHINE OPERATOR Antibody Scl-70 Scleroderma Ab Double Strand DNA Ab Centromere B Antibody Complement C3 Complement C4 Tot Complement (CH50) HLA-B27 11/16/17 11/16/17 11/16/17 05:05 05:05 05:05 WBC RBC Hgb Hct MCV MCH MCHC RDW RDW Differential Plt Count MPV Immature Gran % (Auto) Neut % (Auto) Lymph % (Auto) [place] % (Auto) Eos % (Auto) Baso % (Auto) Absolute Neuts (auto) Absolute Lymphs (auto) Total Counted Differential Comment Diff Path Review Platelet Estimate ESR APTT Sodium 139 Potassium 3.7 Chloride 102 Carbon Dioxide 28.0 Anion Gap 9 BUN 5 L Creatinine 0.48 L Estim Creat Clear Calc 109.35 Est GFR (MDRD) Af Amer 167 Est GFR (MDRD) Non-Af 138 BUN/Creatinine Ratio 10.3 Glucose 106 Calcium 8.5 C-React Prot Ext Range Rheumatoid Factor Cycl Citrul Peptide IgG Pending SHADIA Screen Pending MARVIN-1 Antibody Pending SS-A/Ro IgG Antibody Pending SS-B/La IgG Antibody Pending Sm (Fisher) Antibody Pending CRIMPING MACHINE OPERATOR Antibody Pending Scl-70 Scleroderma Ab Pending Double Strand DNA Ab Pending Centromere B Antibody Pending Complement C3 Pending Complement C4 Pending Tot Complement (CH50) Pending HLA-B27 Pending 11/16/17 05:05 WBC RBC Hgb Hct MCV MCH MCHC RDW RDW Differential Plt Count MPV Immature Gran % (Auto) Neut % (Auto) Lymph % (Auto) [place] % (Auto) Eos % (Auto) Baso % (Auto) Absolute Neuts (auto) Absolute Lymphs (auto) Total Counted Differential Comment Diff Path Review Platelet Estimate ESR APTT 66.6 H Sodium Potassium Chloride Carbon Dioxide Anion Gap BUN Creatinine Estim Creat Clear Calc Est GFR (MDRD) Af Amer Est GFR (MDRD) Non-Af BUN/Creatinine Ratio Glucose Calcium C-React Prot Ext Range Rheumatoid Factor Cycl Citrul Peptide IgG SHADIA Screen MARVIN-1 Antibody SS-A/Ro IgG Antibody SS-B/La IgG Antibody Sm (Fisher) Antibody CRIMPING MACHINE OPERATOR Antibody Scl-70 Scleroderma Ab Double Strand DNA Ab Centromere B Antibody Complement C3 Complement C4 Tot Complement (CH50) HLA-B27 Assessment/Plan Active and Suspected Problems Temporal arteritis (Suspected) NSTEMI (non-ST elevated myocardial infarction) (Acute) Atrial fibrillation with RVR (Acute) RECOMMENDATIONS 1. Wean oxygen supplementation to keep saturations 90% or above 2. Encourage incentive spirometer and increase activity as tolerated 3. Await immunology/CCP workup 4. Ambulatory pulse oximetry prior to discharge 5. Arrhythmia/rate control per cardiology recommendations 6. Follow up as outpatient in pulmonary clinic IMPRESSIONS 1. Abnormal chest imaging/interstitial disease CTA of the chest read as bibasilar infiltrate/atelectasis. No fevers but has leukocytosis. No culture data to review. Patient does have a cough that has been persistent since July, typically nonproductive except for the mornings. No increase in sputum production. No significant shortness of breath except with bending over. She did have a recent left heart catheterization, so pulmonary artery pressures were not assessed. Her echocardiogram also did not have pulmonary pressures assessed. Her ejection fraction is 70%. Patient does have multiple symptoms concerning for polymyalgia rheumatica. Awaiting her temporal artery biopsy results and immunology workup. Reports was told she originally had lupus in her 30s, and was told she has osteoarthritis and has only been treated with Plaquenil in the past. If she does in fact have rheumatoid, may be etiology of her interstitial lung disease. She did have a lung nodule that would be consistent with this diagnosis as well. Patient should have an ambulatory pulse ox prior to discharge to assess for exertional hypoxemia. Encourage incentive spirometer and increase activity as tolerated. She can follow-up in pulmonary clinic in 2 weeks with WEIGHT LOSS COUNSELOR, which time any necessary testing can be ordered. She may require a right heart catheterization in the future to assess her pulmonary artery pressures. 2. Atrial fibrillation with RVR/NSTEMI Resolved. Likely demand ischemia in the setting of heart rate in the 170s-180s with AF RVR. Patient currently maintained on oral Cardizem. She has been maintaining a sinus rhythm with occasional bursts of non-sustained A. fib. She has an intolerance to beta blockers and MIRIAN inhibitors. Cardiology is following. 3. Hypothyroidism/hypertension/family history of temporal arteritis/ hyperlipidemia/GERD/allergic rhinitis Complicates care, management, recovery, and prognosis. Currently undergoing workup with recent temporal artery biopsies bilaterally. She is to follow-up with a steam pan sponger in [place], Dr. Mena, in a few weeks. Patient currently switched from Flonase to Atrovent with minimal improvement in her nasal stuffiness. Unsure of etiology of hearing loss. Thank you for the opportunity to participate in this patient's care, please do not hesitate to contact us with any further questions or concerns. This note was generated with [employer] dictation software. It may contain incorrect words, spelling, and punctuation that were not noted in checking the note before signing.
[2017-11-16] MEDS: dilTIAZem CD 120 MG Capsule PO (10:25)
[2017-11-16] MEDS: 0.9% Normal Saline 1,000 ML 75 ML IV (12:52)
--- NOTE | 2017-11-16 12:59 | CASEMGMT ---
Face to Face with patient for initial transition planning/care coordination assessment. RN JOSELIN introduced self and role at [facility], pt voices understanding and consents to assessment at this time. Pt is sitting up in bed in no distress at this time. Pt is A/O x4 at this time and answers all questions appropriately at this time. Care providers, pharmacy, and demographics verified. See attached link. Pt voices no further concerns/needs at this time. Advised pt to ask for CM if any further questions/concerns/needs arise, voices understanding. CM to follow for any further discharge planning/needs. [place]
[2017-11-16 14:11] LABS: Pathologist Review Reviewed
[2017-11-16 14:16] LABS: Pathologist Review Reviewed
--- NOTE | 2017-11-16 15:35 | PCM.PN.CARD ---
Subjectve: The patient states she feels better overall with respect and not sensing rapid heartbeats. She has had no other chest discomfort or difficulty breathing. Objective: Vital Signs Temp Pulse Resp BP Pulse Ox 98.5 F 104 H 16 119/69 94 11/16/17 10:19 11/16/17 11:20 11/16/17 10:19 11/16/17 10:19 11/16/17 10:19 Oxygen Flow Rate (L/min) 2 Oxygen Delivery Method Room Air Weight: 133 lb 13.129 oz Body Mass Index (BMI) 22.6 Intake and Output for Last 24 Hours 11/14/17 11/15/17 11/16/17 23:59 23:59 23:59 Intake Total 2251 / 2251 2798 / 2798 2729.8 / 2729.8 Output Total 1100 / 1100 1550 / 1550 Balance 1151 / 1151 1248 / 1248 2729.8 / 2729.8 General: Awake, Alert, Oriented x 3, Cooperative, No Acute Distress Neck: No JVD Lungs: Clear to auscultation Cardiovascular: Regular Rhythm, Normal S1, Normal S2 Abdomen: Bowel Sounds Present, Soft, Non Tender Extremities: No Cyanosis, No Clubbing, No edema 11/15/17 15:22: APTT 50.1 H 11/15/17 23:10: APTT 67.6 H 11/16/17 05:05: WBC 15.5 H, RBC 3.87 L, Hgb 11.3 L, Hct 35.0 L, MCV 90.4, MCH 29.2, MCHC 32.3, RDW 13.4, RDW Differential 44.1 H, Plt Count 799 H*, MPV 8.3, Immature Gran % (Auto) 0.800, Neut % (Auto) 80.5 H, Lymph % (Auto) 8.4 L, [place] % (Auto) 7.9, Eos % (Auto) 2.2, Baso % (Auto) 0.2, Absolute Neuts (auto) 12.5 H, Total Counted Not Reportable 11/16/17 05:05: Sodium 139, Potassium 3.7, Chloride 102, Carbon Dioxide 28.0, Anion Gap 9, BUN 5 L, Creatinine 0.48 L, Est GFR (MDRD) Af Amer 167, Est GFR (MDRD) Non-Af 138, BUN/Creatinine Ratio 10.3, Glucose 106, Calcium 8.5 11/16/17 05:05: APTT 66.6 H Rhythm: Sinus rhythm Medical Necessity - Tobacco Use Smoking Status: Never smoker Tobacco Use: Non-smoker Assessment/Plan 1. Atrial fibrillation with rapid ventricular response The patient states she has had palpitations and rapid heart rate in the past. It is never been documented. This time she was found to have atrial fibrillation with rapid ventricular response. She has been treated medically with IV diltiazem. She had conversion to sinus rhythm. She is being monitored. She has had episodes of recurrent PAF-brief. This would include rate control therapy. This can include calcium channel antagonist. As her other non-cardiovascular testing has been placed on indefinite hold based upon her hospitalization, etc., it may not be unreasonable at this time to consider discontinuation of her IV heparin therapy with change to an oral systemic anticoagulant therapy. This agent, if she does proceed with another non-cardiovascular testing, can then be temporarily interrupted as deemed appropriate. 2. Non-ST segment elevation ID She was found to have elevated cardiac enzymes. They are decreasing. This may be a type II event secondary to her atrial fibrillation with rapid ventricular response knowing that her recent diagnostic cardiac catheterization demonstrated angiographically normal-appearing coronary arteries. It appears less likely, without ongoing symptoms or additional electrocardiographic changes, etc. that this is related to atrial fibrillation thromboembolic events involving the coronary arteries. She is also been assessed for great vessel disease and thromboembolic disease such as PE by CT scan which has been reported as negative. Ideally she would continue medical management such as aspirin, consideration to antiplatelet therapy, possibly beta-rosa therapy, possibly MIRIAN inhibitor therapy, etc. However she does have reports of adverse reaction to beta blockers and MIRIAN inhibitors. Thus she may need to be delegated to other medications. In the meantime she will be asked to have an echocardiogram to assess her ventricular wall motion and systolic function. 3. Hypertension He will continue medical management as deemed appropriate. 4. Hyperlipidemia She should continue risk factor evaluation and care. However, she states she has adverse reaction to statins and thus cannot tolerate statins as a lipid-lowering agent. Comment: The patient's case has been previously discussed with patient. This note was generated with Dovo[employer] software. It may contain incorrect words, spelling, and punctuation that were not noted in checking the note before signing.
--- NOTE | 2017-11-16 15:38 | PN.CARD_ITS ---
Subjectve: The patient states she feels better overall with respect and not sensing rapid heartbeats. She has had no other chest discomfort or difficulty breathing. Objective: Vital Signs Temp Pulse Resp BP Pulse Ox 98.5 F 104 H 16 119/69 94 11/16/17 10:19 11/16/17 11:20 11/16/17 10:19 11/16/17 10:19 11/16/17 10:19 Oxygen Flow Rate (L/min) 2 Oxygen Delivery Method Room Air Weight: 133 lb 13.129 oz Body Mass Index (BMI) 22.6 Intake and Output for Last 24 Hours 11/14/17 11/15/17 11/16/17 23:59 23:59 23:59 Intake Total 2251 / 2251 2798 / 2798 2729.8 / 2729.8 Output Total 1100 / 1100 1550 / 1550 Balance 1151 / 1151 1248 / 1248 2729.8 / 2729.8 General: Awake, Alert, Oriented x 3, Cooperative, No Acute Distress Neck: No JVD Lungs: Clear to auscultation Cardiovascular: Regular Rhythm, Normal S1, Normal S2 Abdomen: Bowel Sounds Present, Soft, Non Tender Extremities: No Cyanosis, No Clubbing, No edema 11/15/17 15:22: APTT 50.1 H 11/15/17 23:10: APTT 67.6 H 11/16/17 05:05: WBC 15.5 H, RBC 3.87 L, Hgb 11.3 L, Hct 35.0 L, MCV 90.4, MCH 29.2, MCHC 32.3, RDW 13.4, RDW Differential 44.1 H, Plt Count 799 H*, MPV 8.3, Immature Gran % (Auto) 0.800, Neut % (Auto) 80.5 H, Lymph % (Auto) 8.4 L, [place] % (Auto) 7.9, Eos % (Auto) 2.2, Baso % (Auto) 0.2, Absolute Neuts (auto) 12.5 H , Total Counted Not Reportable 11/16/17 05:05: Sodium 139, Potassium 3.7, Chloride 102, Carbon Dioxide 28.0, Anion Gap 9, BUN 5 L, Creatinine 0.48 L, Est GFR (MDRD) Af Amer 167, Est GFR ( MDRD) Non-Af 138, BUN/Creatinine Ratio 10.3, Glucose 106, Calcium 8.5 11/16/17 05:05: APTT 66.6 H Rhythm: Sinus rhythm Medical Necessity - Tobacco Use Smoking Status: Never smoker Tobacco Use: Non-smoker Assessment/Plan 1. Atrial fibrillation with rapid ventricular response The patient states she has had palpitations and rapid heart rate in the past. It is never been documented. This time she was found to have atrial fibrillation with rapid ventricular response. She has been treated medically with IV diltiazem. She had conversion to sinus rhythm. She is being monitored. She has had episodes of recurrent PAF-brief. This would include rate control therapy. This can include calcium channel antagonist. As her other non-cardiovascular testing has been placed on indefinite hold based upon her hospitalization, etc., it may not be unreasonable at this time to consider discontinuation of her IV heparin therapy with change to an oral systemic anticoagulant therapy. This agent, if she does proceed with another non-cardiovascular testing, can then be temporarily interrupted as deemed appropriate. 2. Non-ST segment elevation ME She was found to have elevated cardiac enzymes. They are decreasing. This may be a type II event secondary to her atrial fibrillation with rapid ventricular response knowing that her recent diagnostic cardiac catheterization demonstrated angiographically normal-appearing coronary arteries. It appears less likely, without ongoing symptoms or additional electrocardiographic changes , etc. that this is related to atrial fibrillation thromboembolic events involving the coronary arteries. She is also been assessed for great vessel disease and thromboembolic disease such as PE by CT scan which has been reported as negative. Ideally she would continue medical management such as aspirin, consideration to antiplatelet therapy, possibly beta-rosa therapy, possibly MIRIAN inhibitor therapy, etc. However she does have reports of adverse reaction to beta blockers and MIRIAN inhibitors. Thus she may need to be delegated to other medications. In the meantime she will be asked to have an echocardiogram to assess her ventricular wall motion and systolic function. 3. Hypertension He will continue medical management as deemed appropriate. 4. Hyperlipidemia She should continue risk factor evaluation and care. However, she states she has adverse reaction to statins and thus cannot tolerate statins as a lipid- lowering agent. Comment: The patient's case has been previously discussed with patient. This note was generated with [employer] software. It may contain incorrect words, spelling, and punctuation that were not noted in checking the note before signing.
--- NOTE | 2017-11-16 17:43 | PCM.DC ---
- Discharge Diagnoses Current Active Problems: Current Active and Chronic Problems HLD (hyperlipidemia) (Chronic) GERD (gastroesophageal reflux disease) (Chronic) Allergic rhinitis (Chronic) NSTEMI (non-ST elevated myocardial infarction) (Acute) Atrial fibrillation with RVR (Acute) You will use the following diet at home:: Other - resume previous diet. No caffeine and no decongestants.....these can cause Atrial fibrillation Your food should be the consistency of: Regular Your liquids should be the consistency of: Regular/Thin Discharge Activity: Return to Normal Activity Call your doctor if you observe: Fever of 101 or Higher, Shortness of breath, Dizziness, Fainting spells, Swelling in the ankles, Chest pain Instructions: What is Rheumatoid Arthritis?, Living with Rheumatoid Arthritis, Rheumatoid Factor Blood Additional Instructions: I think you may have rheumatoid arthritis. The rheumatoid factor is elevated in the blood at 49, normal is < 15.....there are other things that cause this but the drawer in [employer] will clear this up. the temporal artery biopsies were negative for temporal arteritis. I am not going to start you on steroids at this time.......I do not want to interfere with any of the tests the drawer in [employer] wants to order. You should tell the drawer in [employer] you had an Anti- CCP, SHADIA panel, HLA B-27, C3, C4 and CH50 drawn at the hospital and she can call for the results, or request the records form [facility] records. I do not think the cough is due to to allergies. I think it is due to lung disease caused by the autoimmune diorder...like rheumatoid. I recommend you follow up with Dr. Mccormick for pulmonary function testing. You also have elevated platelets in the blood and an elevated white blood cell count with no evidence of infection......this will also need to be addressed. Unfortunately there is a lot of work up yet to do but, The most important person for you to see at this time is the drawer in [employer]. I will send a copy of the discharge summary to Dr. Hess, Dr. Kovacs and also to Dr. Mccormick. Pending Tests on Discharge: Anti-CCP, SHADIA panel, C3, C4, CH 50, HLA-B27 Allergies/Adverse Reactions: Allergies etodolac Allergy (Verified 11/14/17 06:16) Unknown hydroxychloroquine [From Plaquenil] Allergy (Verified 11/14/17 06:16) Rash Sulfa (Sulfonamide Antibiotics) Allergy (Verified 11/14/17 06:16) Hives tramadol Allergy (Verified 11/14/17 06:16) Unknown lisinopril Adverse Reaction (Verified 11/14/17 06:16) dizziness metoprolol Adverse Reaction (Verified 11/14/17 06:16) Other Proton Pump Inhibitors Adverse Reaction (Verified 11/14/17 06:16) Other Juongmn-Tyv-Ghl Reductase Inhibitor Adverse Reaction (Verified 11/14/17 06:16) dizziness verapamil Adverse Reaction (Verified 11/14/17 06:16) Other Medications to take at Discharge Ascorbic Acid [Vitamin C] 500 mg PO DAILY@0800 10/27/17 Aspirin 81 mg PO QHS 10/27/17 Cholecalciferol (Vitamin D3) [Vitamin D3] 2,000 unit PO DAILY 10/27/17 Dexlansoprazole [Dexilant] 60 mg PO DAILY 10/27/17 Levothyroxine Sodium [Synthroid] 62.5 mcg PO DAILY 10/27/17 [place]-3 Fatty Acids/Fish Oil [[place] 3 1,000 mg Softgel] 1,200 mg PO DAILY 10/27/17 Fluticasone 0.05% [Flonase Nasal [place]] 1 spray NASAL BID 11/14/17 Apixaban [Eliquis] 5 mg PO BID #60 tab 11/16/17 Diltiazem CD [Cardizem CD] 120 mg PO Q12 #60 cap 11/16/17 The following prescriptions were given: Diltiazem CD [Cardizem CD] 120 mg PO Q12 #60 cap Apixaban [Eliquis] 5 mg PO BID #60 tab Primary Care Physician: Gladys Martinez MD [Primary Care Provider] - Please follow up with your Primary Care Physician in: 7-10 days Please Follow Up With: Iftikhar Mccormick MD When: 2 weeks with [place] Please Follow Up With: Uche Swann MD When: as previously arranged Proposed Discharge Date: 11/16/17
--- NOTE | 2017-11-16 17:54 | DCINST_ITS ---
- Discharge Diagnoses Current Active Problems: Current Active and Chronic Problems HLD (hyperlipidemia) (Chronic) GERD (gastroesophageal reflux disease) (Chronic) Allergic rhinitis (Chronic) NSTEMI (non-ST elevated myocardial infarction) (Acute) Atrial fibrillation with RVR (Acute) You will use the following diet at home:: Other - resume previous diet. No caffeine and no decongestants.....these can cause Atrial fibrillation Your food should be the consistency of: Regular Your liquids should be the consistency of: Regular/Thin Discharge Activity: Return to Normal Activity Call your doctor if you observe: Fever of 101 or Higher, Shortness of breath, Dizziness, Fainting spells, Swelling in the ankles, Chest pain Instructions: What is Rheumatoid Arthritis?, Living with Rheumatoid Arthritis, Rheumatoid Factor Blood Additional Instructions: I think you may have rheumatoid arthritis. The rheumatoid factor is elevated in the blood at 49, normal is < 15.....there are other things that cause this but the business systems consultant will clear this up. the temporal artery biopsies were negative for temporal arteritis. I am not going to start you on steroids at this time.......I do not want to interfere with any of the tests the business systems consultant wants to order. You should tell the business systems consultant you had an Anti- CCP, SHADIA panel, HLA B-27, C3, C4 and CH50 drawn at the hospital and she can call for the results, or request the records form [facility] records. I do not think the cough is due to to allergies. I think it is due to lung disease caused by the autoimmune diorder...like rheumatoid. I recommend you follow up with Dr. Mccormick for pulmonary function testing. You also have elevated platelets in the blood and an elevated white blood cell count with no evidence of infection......this will also need to be addressed. Unfortunately there is a lot of work up yet to do but, The most important person for you to see at this time is the business systems consultant. I will send a copy of the discharge summary to Dr. Hess, Dr. Kovacs and also to Dr. Mccormick. Pending Tests on Discharge: Anti-CCP, SHADIA panel, C3, C4, CH 50, HLA-B27 Allergies/Adverse Reactions: Allergies etodolac Allergy (Verified 11/14/17 06:16) Unknown hydroxychloroquine [From Plaquenil] Allergy (Verified 11/14/17 06:16) Rash Sulfa (Sulfonamide Antibiotics) Allergy (Verified 11/14/17 06:16) Hives tramadol Allergy (Verified 11/14/17 06:16) Unknown lisinopril Adverse Reaction (Verified 11/14/17 06:16) dizziness metoprolol Adverse Reaction (Verified 11/14/17 06:16) Other Proton Pump Inhibitors Adverse Reaction (Verified 11/14/17 06:16) Other Rvhwgnz-Hte-Tmp Reductase Inhibitor Adverse Reaction (Verified 11/14/17 06:16) dizziness verapamil Adverse Reaction (Verified 11/14/17 06:16) Other Medications to take at Discharge Ascorbic Acid [Vitamin C] 500 mg PO DAILY@0800 10/27/17 Aspirin 81 mg PO QHS 10/27/17 Cholecalciferol (Vitamin D3) [Vitamin D3] 2,000 unit PO DAILY 10/27/17 Dexlansoprazole [Dexilant] 60 mg PO DAILY 10/27/17 Levothyroxine Sodium [Synthroid] 62.5 mcg PO DAILY 10/27/17 [place]-3 Fatty Acids/Fish Oil [[place] 3 1,000 mg Softgel] 1,200 mg PO DAILY Fluticasone 0.05% [Flonase Nasal [place]] 1 spray NASAL BID 11/14/17 Apixaban [Eliquis] 5 mg PO BID #60 tab 11/16/17 Diltiazem CD [Cardizem CD] 120 mg PO Q12 #60 cap 11/16/17 The following prescriptions were given: Diltiazem CD [Cardizem CD] 120 mg PO Q12 #60 cap Apixaban [Eliquis] 5 mg PO BID #60 tab Primary Care Physician: Gladys Martinez MD [Primary Care Provider] - Please follow up with your Primary Care Physician in: 7-10 days Please Follow Up With: Iftikhar Mccormick MD When: 2 weeks with [place] Please Follow Up With: Uche Swann MD When: as previously arranged Proposed Discharge Date: 11/16/17
--- NOTE | 2017-11-16 17:59 | PCM.DC.SUM ---
Discharge Date and Diagnosis - Problem List Patient Problems: Active and Suspected Problems Interstitial pneumonitis (Suspected) Rheumatoid arthritis (Suspected) NSTEMI (non-ST elevated myocardial infarction) (Acute) Atrial fibrillation with RVR (Acute) Date of Admission: 11/14/17 Date of Discharge: 11/16/17 - Primary Discharge Diagnosis Active and Suspected Problems NSTEMI (non-ST elevated myocardial infarction) (Acute) Atrial fibrillation with RVR (Acute) Interstitial pneumonitis (Suspected) Rheumatoid arthritis (Suspected) - Secondary Discharge Diagnosis Chronic Problems Breast nodule (Chronic) - Will follow up with PCP HLD (hyperlipidemia) (Chronic) GERD (gastroesophageal reflux disease) (Chronic) Allergic rhinitis (Chronic) Rhinosinusitis (Chronic) Hypothyroidism (Chronic) Hypertension (Chronic) Myalgia (Chronic) Family history of temporal arteritis (Chronic) Jaw claudication (Chronic) Hospital Course and Treatment Imaging Results: Clinical Impression(s) from Imaging Studies Chest X-Ray 11/14/17 06:16 IMPRESSION: Stable-appearing chest. No acute abnormality noted. Possible COPD. Electronically Signed: Kiet Bender MD at 6:52 EDT Tel , Service support , Chest CTA 11/14/17 07:24 IMPRESSION: 1. Normal CTA chest examination, without a demonstrated pulmonary embolism or arterial dissection. 2. 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 3. Bibasilar infiltrates/atelectasis and diffuse mild bilateral pulmonary interstitial thickening demonstrated. 4. A 1.5 cm nodule posteriorly in the left breast and a small nodular density in the right breast seen, further evaluation with a diagnostic mammogram/ultrasound exam is recommended. 5. Osteopenia. Multilevel degenerative thoracolumbar spondylosis. Electronically Signed: Kiet Bender MD at 8:34 EDT Tel , Service support , Wrist X-Ray 11/14/17 17:22 IMPRESSION: Degenerative changes. Chondrocalcinosis. Electronically Signed: Xiomy Price MD at 18:23 EDT Tel , Service support , Dr. Canelo Toney-cardiology Operations: None Procedures: 2-D Echocardiogram Summary of Care Provided: The patient is a 62-year-old female with a past medical history of hypothyroidism, hypertension, hyperlipidemia, GERD, allergic rhinitis and suspected temporal arteritis who was recently admitted to [facility] for jaw pain and atypical chest discomfort. Cardiac catheterization revealed a left ventricular ejection fraction of 60% with no significant coronary artery disease. She was discharged and referred to her PCP for evaluation for possible temporal arteritis since she had multiple somatic complaints, jaw claudication and an elevated ESR at 43. She had BL temporal artery biopsies done by Dr. Jarod Teran at [facility] and these were negative for temporal arteritis. She presented to the ED at [facility] on 11/14/2017 complaining of increased palpitations. Troponin was increased at 3.76 in the emergency room. TSH was normal at 2.44. EKG showed atrial fibrillation with rapid ventricular response. CTA of the chest was negative for pulmonary emboli. CTA of the chest incidentally revealed a 1.5 cm nodule posteriorly in the left breast and a small nodular density in the right breast. She was admitted to a monitored bed on PCU and cardiology was consulted. She converted to normal sinus rhythm with intravenous Cardizem. She was seen in consultation by Dr. Toney from cardiology who recommended continuing Cardizem and also recommended anticoagulation since her [id number] score was at least 2. She was started on Eliquis. He felt the NSTEMI was likely a type II NSTEMI due to demand ischemic related to AF with RVR since she had normal coronaries on a cardiac cath less than 1 month ago. She listed statins, DERIK inhibitors and metoprolol as allergies but did not know the reactions. She was started on aspirin and cardeizem. She had no recurrence of AF while in the hospital and tolerated the cardizem without adverse reaction. Repeat ESR is now 80, up from 49 at the last admission and the CRP is 127. A rheumatoid factor was sent and is elevated at 49 with the highest normal being 15. SHADIA panel, C3, C4, CH 50, HLA-B27 are all pending at the time of discharge. He has an appointment with a ticker wirer scheduled for this coming . She was seen in consult by Dr. Mccormick from pulmonary medicine for her dry cough. I suspect that the cough may be due to pulmonary fibrosis or interstitial pneumonitis related to a connective tissue disease. Dr. Mccormick agreed and wants to see her in follow-up in the office in 2 weeks to arrange for PFTs and a walking oximetry. She was discharged home on 11/16 and given RX's for Cardizem CD 120 mg p.o. every 12 hours and apixaban 5 mg p.o. every 12 hours. He will follow-up with Dr. Gladys Martinez in 7-[address] Iftikhar Mccormick in 2 weeks. She should also follow-up with Dr. Toney in the future for paroxysmal atrial fibrillation. She will follow-up with Dr. Swann as previously scheduled. GENERAL: alert, oriented X 3, Cooperative, NAD ORAL: moist mucosa, no mucosal lesions NECK: No JVD, supple, trachea midline LUNGS: CTA, symmetric chest expansion HEART: RRR, Normal S1 and S2, no rub, no gallop ABDOMEN: soft, NT, ND, BS present, no guarding with palpation EXTREMITIES: The right wrist is swollen and she has decreased flexion and extension. there is no erythema but, there is mild increased warmth to touch. There are joint deformities at the SIP and PIP's and swelling of the MCP joints on both hands. there is thenar wasting SKIN: No rashes, no breakdown NEUROLOGIC: no focal neurologic deficits PSYCH: appropriate, normal affect, pleasant This note was generated with [employer] dictation software. It may contain incorrect words, spelling, and punctuation that were not noted in checking the note before signing. Discharge Activity: Return to Normal Activity Call your doctor if you observe: Fever of 101 or Higher, Shortness of breath, Dizziness, Fainting spells, Swelling in the ankles, Chest pain Home Medications: Medications to take at Discharge Ascorbic Acid [Vitamin C] 500 mg PO DAILY@0800 10/27/17 Aspirin 81 mg PO QHS 10/27/17 Cholecalciferol (Vitamin D3) [Vitamin D3] 2,000 unit PO DAILY 10/27/17 Dexlansoprazole [Dexilant] 60 mg PO DAILY 10/27/17 Levothyroxine Sodium [Synthroid] 62.5 mcg PO DAILY 05/09/18 [place]-3 Fatty Acids/Fish Oil [[place] 3 1,000 mg Softgel] 1,200 mg PO DAILY 10/27/17 Fluticasone 0.05% [Flonase Nasal [place]] 1 spray NASAL BID 11/14/17 Apixaban [Eliquis] 5 mg PO BID #60 tab 11/16/17 Diltiazem CD [Cardizem CD] 120 mg PO Q12 #60 cap 11/16/17 Following Prescrptions Were Given to Patient: Diltiazem CD [Cardizem CD] 120 mg PO Q12 #60 cap Apixaban [Eliquis] 5 mg PO BID #60 tab Primary Care Physician: Gladys Martinez MD [Primary Care Provider] - Please follow up with your Primary Care Physician in: 7-10 days Please Follow Up With: Iftikhar Mccormick MD When: 2 weeks with [place] Please Follow Up With: Uche Swann MD When: as previously arranged Patient Instructions: Rheumatoid Factor Blood, What is Rheumatoid Arthritis?, Living with Rheumatoid Arthritis Disposition: Home Minutes spent on discharge:: 35 Patient Condition:: Stable Medical Necessity - Tobacco Use Smoking Status: Never smoker Tobacco Use: Non-smoker Meaningful Use Info Meaningful Use Diagnoses (Choose all that apply): AMI - AMI Aspirin given w/in 24hrs of arrival?: Yes ASA at discharge?: Yes Statins at discharge?: No Reason statins not ordered:: Allergy Derik/ARB at discharge?: No Reason Derik/ARB not ordered:: Allergy Beta Rashid at discharge?: No Reason Beta Rashid not ordered:: Allergy Done w/ Acute MA measure.: Yes Code Visit Inpatient E&M: [id number] Disch Hosp
[2017-11-16 18:03] LABS: M R Staph aureus DNA By PCR Negative (Negative); Probe Check PASS; Specimen Processing Control PASS
[2017-11-17 13:47] LABS: ANTINUCLEAR ANTIBODIES DIRECT Negative (Negative)
[2017-12-02 10:00] LABS: Complement C3 188 mg/dL (82-167)
[2017-12-02 12:13] LABS: CCP IgG Antibodies 19 units (0-19); Complement CH50 > 60 U/mL (>41); HLA B27 Negative (.)
== END 2017-11-16 19:20 | disposition home or self-care (01) | DRG 282 ==
LOC: ED 06:25 → PCU 08:40
PROVIDERS: Internal Medicine; Internal Medicine Cardiovascular Disease; Admitting Provider Family Medicine; Emergency Provider Emergency Medicine; Family Provider Family Medicine; PCP Family Medicine; Visit Provider Family Medicine
DX: I48.0 Paroxysmal atrial fibrillation (principal); I21.4 Non-ST elevation (NSTEMI) myocardial infarction; K21.9 Gastro-esophageal reflux disease without esophagitis; E78.5 Hyperlipidemia, unspecified; N63.0 Unspecified lump in unspecified breast; E03.9 Hypothyroidism, unspecified; I10 Essential (primary) hypertension; R79.89 Other specified abnormal findings of blood chemistry
CPT/HCPCS: 36415; 71045; 71275; 73100; 80048; 80061; 81374; 83735; 84443; 84484; 85025; 85610; 85652; 85730; 86038; 86140; 86160; 86162; 86200; 86225; 86235; 86431; 87641; 93005; 93306; 97116; 97161; 97165; 97530; 97535; 97802; 99285; J7030; Q9967; A4216; J0153; J2405

== ENCOUNTER 2017-11-26 19:50 | Emergency (ER) | payer OTHER, SELFPAY ==
--- NOTE | 2017-11-26 12:31 | EKG12_ITS ---
Test Reason : AM EKG Blood Pressure : / mmHG Vent. Rate : 091 BPM Atrial Rate : 091 BPM P-R Int : 128 ms QRS Dur : 074 ms QT Int : 376 ms P-R-T Axes : 022 -21 030 degrees QTc Int : 462 ms Normal sinus rhythm Normal ECG When compared with ECG of 14-NOV-2017 08:15, MANUAL COMPARISON REQUIRED, DATA IS UNCONFIRMED Confirmed by NHAN MONTALVO ([id number]), film and video editor GRECIA BARRAZA ([id number]) on 12/01/2017 7:33:04 PM Referred By: JUDIT Confirmed By:NHAN MONTALVO
--- NOTE | 2017-11-26 12:31 | EKG12_ITS ---
Test Reason : CODE BLUE Blood Pressure : / mmHG Vent. Rate : 077 BPM Atrial Rate : 077 BPM P-R Int : 122 ms QRS Dur : 084 ms QT Int : 436 ms P-R-T Axes : 042 021 052 degrees QTc Int : 493 ms Sinus bradycardia with occasional Premature ventricular complexes Reconfirmed by CECILE LEES, ANA LAURA ([id number]), market editor GRECIA BARRAZA ([id number]) on 01/04/2018 2:53:09 PM Referred By: SHON Confirmed By:ANA LAURA HUBER MD
--- NOTE | 2017-11-26 19:50 | DT_ITS ---
This patient was seen during an EMR downtime November 22, 2017 - November 29, 2017. This patient may have a combination of paper and electronic documentation or all paper documentation. All documentation is viewable within the e-chart portion of [facility] for each patient visit.
--- NOTE | 2017-11-26 20:04 | CT_ITS ---
STUDY: CT BRAIN WITHOUT CONTRAST REASON FOR EXAM: Female, 62 years old. UNRESPONSIVE, PUPILS FIXED AND DILATED, UNKNOWN DOWN TIME RADIATION DOSAGE (If Supplied By Facility): CTDIvol = ( 44.99 ) mGy, DLP = ( 812.98 ) mGycm TECHNIQUE: Transaxial CT imaging of the brain was performed without administration of intravenous contrast material. COMPARISON: None. FINDINGS: Normal soft tissue structures. Normal calvarium. There are calcifications around the carotid artery. These are noted in the cavernous carotid arteries. There is mild cerebral atrophy with widening of the extra-axial spaces and ventricular dilatation. There are areas of decreased attenuation within the white matter tracts of the supratentorial brain, consistent with microvascular disease changes. Normal basal ganglia and thalami. Normal brainstem. There is mild cerebellar atrophy. Large left frontal lobe hemorrhage extending to the left basal ganglia. This measures 84 x 44 mm. There is 13 mm left right midline shift. There is overlying cerebral edema. Hemorrhage is visualized in the lateral ventricle or ventricle and fourth ventricle. There is evidence for tonsillar herniation. There is mild maxillary sinus disease. Mild ethmoid and sphenoid sinus disease. CT/Brain/Head without Contrast IMPRESSION: Chronic involutional changes of the brain. 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 There is tonsillar herniation. N.B. : The above information has been verbally conveyed by Cristobal Red MD to David Blanco on 11/26/2017 20:21:09 (ET). Electronically Signed: Cristobal Red MD at 20:21 EDT , Service support , N.B. : The above information has been verbally conveyed by Cristobal Red MD to David Blanco on 11/26/2017 20:21:09 (ET).
[2017-11-30 07:16] LABS: Lactic Acid 6.4 mmol/L (0.4-2.0)
[2017-11-30 07:17] LABS: Lipase 323 U/L (73-393)
[2017-11-30 14:11] LABS: International Normalized Ratio 1.2; Mean Corpuscular Hgb 28.8 pg (27.0-32.0); Mean Corpuscular Volume 92.9 fL (81-99); Partial Thromboplast Time 26.1 Seconds (24.1-36.2); RBC Distribution Width CV 14.7 % (11.6-14.6); Red Blood Count 4.52 M/mm3 (4.2-5.4); White Blood Count 29.7 K/mm3 (4.4-11.0)
[2017-11-30 14:12] LABS: Basophil% 0.2 % (0-1); Differential Indicated SCAN CRITERIA MET; Eosinophils% 0.2 % (0-5); Lymphocyte % 12.6 % (19-41); Mean Platelet Vol. 8.6 fl (6.2-12.0); Monocyte% 6.7 % (0-10); Neutrophil % 77.5 % (47-70); POSITIVE COUNT YES; POSITIVE DIFFERENTIAL YES; POSITIVE MORPHOLOGY YES; Platelet Count 834 K/mm3 (150-450); RBC Distribution Width SD 48.2 fl (35.1-43.9)
[2017-11-30 14:13] LABS: Absolute Lymphocyte Count 3.74 X10^3/ul (0.83-4.51); Lymphocyte # 3.74 X10^3/ul (4.0); Neutrophil # 22.99 X10^3/uL (2.7-7.7)
[2017-11-30 14:14] LABS: Differential Comment SCANNED
[2017-12-01 13:52] LABS: Pathologist Review Reviewed
[2017-12-03 17:54] LABS: Bedside Glucose 224 mg/dL (70-110)
== END 2017-11-26 22:27 ==
LOC: ED 11-27 13:14
PROVIDERS: Emergency Provider Emergency Medicine; Family Provider Family Medicine; PCP Family Medicine
DX: I62.9 Nontraumatic intracranial hemorrhage, unspecified (principal); I46.9 Cardiac arrest, cause unspecified; I48.91 Unspecified atrial fibrillation; E03.9 Hypothyroidism, unspecified; K21.9 Gastro-esophageal reflux disease without esophagitis; Z79.82 Long term (current) use of aspirin; Z79.01 Long term (current) use of anticoagulants; Z79.899 Other long term (current) drug therapy
CPT/HCPCS: 31500; 31720; 36415; 70450; 82962; 83605; 83690; 84484; 85025; 85610; 85730; 92950; 93005; 94002; 96360; 99285; J7030; A4216